=== PATIENT | male | born 1950 | race Caucasian/White ===

== ENCOUNTER → 2016-06-01 | Outpatient (CLI) | payer BC ==
[~2016-06-01] MED LIST: ASPI-999 PO; CELE200C PO; CETI10TA20 PO; GADOBUTROL 10 MMOL/10 ML (GADAVIST) VIAL IV ONE; LEVO5TAB19 PO; MULT1TAB69 PO; NF-DICLOTA PO; OLME20TA22 PO; OMEG1CAP PO; OXYC-197 PO; ROSU20TA PO; SERT50TA2 PO; ZOLP10TA PO
--- NOTE | 2016-06-01 13:17 | Diagnostic Imaging Report ---
EXAMINATION: PET-CT TECHNIQUE: Serum glucose level at the time of the study is: 102 mg/dL. 14.3 mCi of FDG was administered intravenously followed by obtaining PET images with corresponding noncontrast CT scan images. The CT scan was performed for anatomic correlation and attenuation correction and was not performed according to the diagnostic protocol of the areas covered. The scan was performed from the head to mid thighs. INDICATION: Lung cancer. COMPARISON: 01/20/2016. FINDINGS: There is interval significant improvement in the hypermetabolic mass within the right lower lobe with FDG activity now within the normal range with maximum SUV of 2.8. There is also resolution of the previously seen hypermetabolic activity within the right hilum. The associated CT scan demonstrates remaining nodule and adjacent cavity in the right lower lobe measuring 2.5 x 2 cm significantly smaller compared to the previous study. No other significant nodule or mass is seen in the lungs. In the abdomen and pelvis, there is physiologic uptake in the bowel loops and excretion in the renal collecting system and within the urinary bladder with no suspicious hypermetabolic mass. The osseous structures demonstrate no hypermetabolic mass. The neck demonstrates mild areas of likely physiologic activity in the oral cavity and the oropharynx in a symmetric fashion with no suspicious hypermetabolic mass. IMPRESSION: Diminished hypermetabolic activity in the right lung base mass and right hilum seen on 01/20/2016 exam. There is residual soft tissue nodule in the right lung base however measuring 2.5 x 2 cm in maximum axial dimension. Dictated by: Dictated on workstation # [id number]
--- NOTE | 2016-07-02 10:15 | RADIOLOGY REPORT ---
NAME: SRI MINOR [facility] REC#: [id number] PT STATUS: : 1950 PHYSICIAN: JOIE PÉREZ ADMIT DATE: 05/17/16/RAD CORRECTED Signed Date of Exam:06/01/16 MRI BRAIN W/WO CONTRAST PROCEDURE: MR imaging of the brain with and without contrast. TECHNIQUE: Multiplanar, multisequence MR imaging of the brain was performed with and without contrast. INDICATION: History of lung cancer. COMPARISON: Comparison exam on 02/13/2016. 8 mL of Gadavist is administered intravenously. FINDINGS: There is no diffusion restriction to suggest an acute infarct or other diffusion abnormality. There is extensive periventricular and deep white matter T2 hyperintense lesions compatible with chronic microvascular ischemic changes. There is no enhancing mass. The previously seen enhancing lesion in the posterior left parietal region is not visualized on this exam. The linear appearance on the sagittal images on the previous study suggested possibility of a DVA. A developmental venous anomaly however should persist and the resolution is suggestive of other etiology. There is no hydrocephalus. No extra-axial fluid collection seen. Central vascular flow-voids appear grossly unremarkable. The inner ear structures and internal auditory canals appear symmetric. The orbits appear symmetric. The visualized portions of the paranasal sinuses demonstrate no significant abnormality. IMPRESSION: No acute infarct or enhancing mass. The previously seen enhancing lesion in the posterior parietal lobe has resolved. This could be related to treatment of an early metastatic lesion or a transient focal encephalitis. Correlate clinically and with followup exams. Dictated by: Dictated on workstation # [id number] Dict: 06/01/16 1348 Trans: 06/01/16 1706 [id number] Interpreted by: KESHA HARRIS MD Electronically signed by: KESHA HARRIS MD 06/01/16 1709 [facility]
== END ==
LOC: RAD 07:54
PROVIDERS: ATTEND Internal Medicine Hematology & Oncology
DX: Z01.89 Encounter for other specified special examinations (principal); C34.31 Malignant neoplasm of lower lobe, right bronchus or lung; R51 Headache
CPT/HCPCS: 70553

== ENCOUNTER → 2016-06-03 | Outpatient (RCR) | payer BC ==
[2016-03-05 14:37] LABS: BASOPHILS % (AUTO) 0 % (0-10); EOSINOPHILS # (AUTO) 0.2 10^3/uL (0.0-0.3); EOSINOPHILS % (AUTO) 2 % (0-10); LYMPHOCYTES # (AUTO) 1.5 X 10^3 (1.0-4.0); LYMPHOCYTES % (AUTO) 19 % (12-44); MEAN CORPUSCULAR HEMOGLOBIN 30 PG (25-34); MEAN CORPUSCULAR HGB CONC 34 G/DL (32-36); MEAN CORPUSCULAR VOLUME 90 FL (80-99); MEAN PLATELET VOLUME 9.7 FL (7.4-10.4); MONOCYTES # (AUTO) 0.8 X 10^3 (0.0-1.0); MONOCYTES % (AUTO) 10 % (0-12); NEUTROPHILS # (AUTO) 5.2 X 10^3 (1.8-7.8); NEUTROPHILS % (AUTO) 68 % (42-75); PLATELET COUNT 272 10^3/uL (130-400); RED BLOOD COUNT 4.62 10^6/uL (4.35-5.85); RED CELL DISTRIBUTION WIDTH 12.7 % (10.0-14.5); WHITE BLOOD COUNT 7.6 10^3/uL (4.3-11.0)
[2016-03-05 14:59] LABS: ALANINE AMINOTRANSFERASE 25 U/L (0-55); ALBUMIN 4.6 G/DL (3.2-4.5); ANION GAP 9 MMOL/L (5-14); ASPARTATE AMINO TRANSFERASE 24 U/L (5-34); BILIRUBIN,TOTAL 0.5 MG/DL (0.1-1.0); BLOOD UREA NITROGEN 15 MG/DL (7-18); BUN/CREATININE RATIO 15; CALCIUM 9.6 MG/DL (8.5-10.1); CARBON DIOXIDE 24 MMOL/L (21-32); CHLORIDE 107 MMOL/L (98-107); CREATININE SERUM 0.98 MG/DL (0.60-1.30); GFR ESTIMATED > 60; GLUCOSE 95 MG/DL (70-105); MAGNESIUM 2.2 MG/DL (1.8-2.4); POTASSIUM 4.3 MMOL/L (3.6-5.0); SODIUM 140 MMOL/L (135-145); TOTAL PROTEIN 7.1 G/DL (6.4-8.2)
[2016-03-18 13:48] LABS: BASOPHILS % (AUTO) 1 % (0-10); EOSINOPHILS # (AUTO) 0.1 10^3/uL (0.0-0.3); EOSINOPHILS % (AUTO) 4 % (0-10); LYMPHOCYTES # (AUTO) 0.6 X 10^3 (1.0-4.0); LYMPHOCYTES % (AUTO) 17 % (12-44); MEAN CORPUSCULAR HEMOGLOBIN 30 PG (25-34); MEAN CORPUSCULAR HGB CONC 33 G/DL (32-36); MEAN CORPUSCULAR VOLUME 91 FL (80-99); MEAN PLATELET VOLUME 9.8 FL (7.4-10.4); MONOCYTES # (AUTO) 0.1 X 10^3 (0.0-1.0); MONOCYTES % (AUTO) 4 % (0-12); NEUTROPHILS # (AUTO) 2.7 X 10^3 (1.8-7.8); NEUTROPHILS % (AUTO) 75 % (42-75); PLATELET COUNT 264 10^3/uL (130-400); RED BLOOD COUNT 4.34 10^6/uL (4.35-5.85); RED CELL DISTRIBUTION WIDTH 12.8 % (10.0-14.5); WHITE BLOOD COUNT 3.6 10^3/uL (4.3-11.0)
[2016-03-18 14:38] LABS: ANION GAP 6 MMOL/L (5-14); BLOOD UREA NITROGEN 18 MG/DL (7-18); BUN/CREATININE RATIO 21; CALCIUM 8.7 MG/DL (8.5-10.1); CARBON DIOXIDE 25 MMOL/L (21-32); CHLORIDE 106 MMOL/L (98-107); CREATININE SERUM 0.86 MG/DL (0.60-1.30); GFR ESTIMATED > 60; GLUCOSE 95 MG/DL (70-105); POTASSIUM 4.7 MMOL/L (3.6-5.0); SODIUM 137 MMOL/L (135-145)
[2016-03-25 13:05] LABS: BASOPHILS # (AUTO) 0.1 10^3/uL (0.0-0.1); BASOPHILS % (AUTO) 2 % (0-10); EOSINOPHILS # (AUTO) 0.3 10^3/uL (0.0-0.3); EOSINOPHILS % (AUTO) 9 % (0-10); LYMPHOCYTES # (AUTO) 1.2 X 10^3 (1.0-4.0); LYMPHOCYTES % (AUTO) 42 % (12-44); MEAN CORPUSCULAR HEMOGLOBIN 31 PG (25-34); MEAN CORPUSCULAR HGB CONC 34 G/DL (32-36); MEAN CORPUSCULAR VOLUME 90 FL (80-99); MEAN PLATELET VOLUME 9.4 FL (7.4-10.4); MONOCYTES # (AUTO) 0.4 X 10^3 (0.0-1.0); MONOCYTES % (AUTO) 15 % (0-12); NEUTROPHILS # (AUTO) 0.9 X 10^3 (1.8-7.8); NEUTROPHILS % (AUTO) 32 % (42-75); PLATELET COUNT 354 10^3/uL (130-400); RED BLOOD COUNT 4.82 10^6/uL (4.35-5.85); RED CELL DISTRIBUTION WIDTH 12.5 % (10.0-14.5); WHITE BLOOD COUNT 2.9 10^3/uL (4.3-11.0)
[2016-03-25 13:30] LABS: ANION GAP 9 MMOL/L (5-14); BLOOD UREA NITROGEN 14 MG/DL (7-18); BUN/CREATININE RATIO 15; CALCIUM 9.3 MG/DL (8.5-10.1); CARBON DIOXIDE 25 MMOL/L (21-32); CHLORIDE 105 MMOL/L (98-107); CREATININE SERUM 0.94 MG/DL (0.60-1.30); GFR ESTIMATED > 60; GLUCOSE 113 MG/DL (70-105); POTASSIUM 4.3 MMOL/L (3.6-5.0); SODIUM 139 MMOL/L (135-145)
[2016-03-25 13:34] LABS: BAND NEUTROPHILS 0 %; BASOPHILS % (MANUAL) 2 %; EOSINOPHILS % (MANUAL) 5 %; LYMPHOCYTES % (MANUAL) 30 %; NEUTROPHILS % (MANUAL) 32 %; REACTIVE LYMPHOCYTES 16 %
[2016-04-01 10:12] LABS: BASOPHILS % (AUTO) 0 % (0-10); EOSINOPHILS % (AUTO) 0 % (0-10); LYMPHOCYTES # (AUTO) 0.7 X 10^3 (1.0-4.0); LYMPHOCYTES % (AUTO) 7 % (12-44); MEAN CORPUSCULAR HEMOGLOBIN 30 PG (25-34); MEAN CORPUSCULAR HGB CONC 34 G/DL (32-36); MEAN CORPUSCULAR VOLUME 89 FL (80-99); MEAN PLATELET VOLUME 9.6 FL (7.4-10.4); MONOCYTES # (AUTO) 0.1 X 10^3 (0.0-1.0); MONOCYTES % (AUTO) 1 % (0-12); NEUTROPHILS # (AUTO) 9.2 X 10^3 (1.8-7.8); NEUTROPHILS % (AUTO) 92 % (42-75); PLATELET COUNT 345 10^3/uL (130-400); RED BLOOD COUNT 4.69 10^6/uL (4.35-5.85); RED CELL DISTRIBUTION WIDTH 12.7 % (10.0-14.5); WHITE BLOOD COUNT 9.9 10^3/uL (4.3-11.0)
[2016-04-01 10:38] LABS: ALANINE AMINOTRANSFERASE 28 U/L (0-55); ALBUMIN 4.3 G/DL (3.2-4.5); ANION GAP 13 MMOL/L (5-14); ASPARTATE AMINO TRANSFERASE 22 U/L (5-34); BILIRUBIN,TOTAL 0.3 MG/DL (0.1-1.0); BLOOD UREA NITROGEN 24 MG/DL (7-18); BUN/CREATININE RATIO 24; CALCIUM 9.3 MG/DL (8.5-10.1); CARBON DIOXIDE 18 MMOL/L (21-32); CHLORIDE 104 MMOL/L (98-107); CREATININE SERUM 0.98 MG/DL (0.60-1.30); GFR ESTIMATED > 60; GLUCOSE 185 MG/DL (70-105); POTASSIUM 4.2 MMOL/L (3.6-5.0); SODIUM 135 MMOL/L (135-145); TOTAL PROTEIN 6.8 G/DL (6.4-8.2)
--- NOTE | 2016-04-01 15:05 | Diagnostic Imaging Report ---
PA and lateral views of the chest. INDICATION: Lung cancer. COMPARISON: 01/31/2016. FINDINGS: The lungs demonstrate no focal infiltrate. There is eventration of the right hemidiaphragm. The heart size is normal. No effusion or pneumothorax. Mediastinum and zunilda appear unremarkable. Upper lumbar spine posterior fusion hardware and cervical spine anterior fusion hardware is noted. IMPRESSION: No acute process. Dictated by: Dictated on workstation # [id number]
[2016-04-08 09:47] LABS: BASOPHILS % (AUTO) 0 % (0-10); EOSINOPHILS # (AUTO) 0.3 10^3/uL (0.0-0.3); EOSINOPHILS % (AUTO) 5 % (0-10); LYMPHOCYTES # (AUTO) 0.5 X 10^3 (1.0-4.0); LYMPHOCYTES % (AUTO) 9 % (12-44); MEAN CORPUSCULAR HEMOGLOBIN 30 PG (25-34); MEAN CORPUSCULAR HGB CONC 33 G/DL (32-36); MEAN CORPUSCULAR VOLUME 91 FL (80-99); MEAN PLATELET VOLUME 9.7 FL (7.4-10.4); MONOCYTES # (AUTO) 0.2 X 10^3 (0.0-1.0); MONOCYTES % (AUTO) 3 % (0-12); NEUTROPHILS # (AUTO) 4.3 X 10^3 (1.8-7.8); NEUTROPHILS % (AUTO) 82 % (42-75); PLATELET COUNT 214 10^3/uL (130-400); RED BLOOD COUNT 4.31 10^6/uL (4.35-5.85); RED CELL DISTRIBUTION WIDTH 12.9 % (10.0-14.5); WHITE BLOOD COUNT 5.3 10^3/uL (4.3-11.0)
[2016-04-08 10:21] LABS: ANION GAP 8 MMOL/L (5-14); BLOOD UREA NITROGEN 23 MG/DL (7-18); BUN/CREATININE RATIO 30; CALCIUM 8.6 MG/DL (8.5-10.1); CARBON DIOXIDE 24 MMOL/L (21-32); CHLORIDE 107 MMOL/L (98-107); CREATININE SERUM 0.77 MG/DL (0.60-1.30); GFR ESTIMATED > 60; GLUCOSE 104 MG/DL (70-105); POTASSIUM 4.4 MMOL/L (3.6-5.0); SODIUM 139 MMOL/L (135-145)
[2016-04-15 11:53] LABS: BASOPHILS # (AUTO) 0.1 10^3/uL (0.0-0.1); BASOPHILS % (AUTO) 2 % (0-10); EOSINOPHILS # (AUTO) 0.3 10^3/uL (0.0-0.3); EOSINOPHILS % (AUTO) 9 % (0-10); LYMPHOCYTES % (AUTO) 33 % (12-44); MEAN CORPUSCULAR HEMOGLOBIN 31 PG (25-34); MEAN CORPUSCULAR HGB CONC 34 G/DL (32-36); MEAN CORPUSCULAR VOLUME 90 FL (80-99); MEAN PLATELET VOLUME 9.1 FL (7.4-10.4); MONOCYTES # (AUTO) 0.7 X 10^3 (0.0-1.0); MONOCYTES % (AUTO) 22 % (0-12); NEUTROPHILS % (AUTO) 33 % (42-75); PLATELET COUNT 306 10^3/uL (130-400); RED BLOOD COUNT 4.53 10^6/uL (4.35-5.85); RED CELL DISTRIBUTION WIDTH 13.1 % (10.0-14.5)
[2016-04-15 13:13] LABS: ANION GAP 9 MMOL/L (5-14); BLOOD UREA NITROGEN 21 MG/DL (7-18); BUN/CREATININE RATIO 24; CALCIUM 9.4 MG/DL (8.5-10.1); CARBON DIOXIDE 24 MMOL/L (21-32); CHLORIDE 106 MMOL/L (98-107); CREATININE SERUM 0.86 MG/DL (0.60-1.30); GFR ESTIMATED > 60; GLUCOSE 117 MG/DL (70-105); POTASSIUM 4.4 MMOL/L (3.6-5.0); SODIUM 139 MMOL/L (135-145)
[2016-04-22 11:00] LABS: BASOPHILS % (AUTO) 0 % (0-10); EOSINOPHILS % (AUTO) 0 % (0-10); LYMPHOCYTES # (AUTO) 0.6 X 10^3 (1.0-4.0); LYMPHOCYTES % (AUTO) 6 % (12-44); MEAN CORPUSCULAR HEMOGLOBIN 30 PG (25-34); MEAN CORPUSCULAR HGB CONC 34 G/DL (32-36); MEAN CORPUSCULAR VOLUME 88 FL (80-99); MEAN PLATELET VOLUME 9.4 FL (7.4-10.4); MONOCYTES # (AUTO) 0.1 X 10^3 (0.0-1.0); MONOCYTES % (AUTO) 1 % (0-12); NEUTROPHILS # (AUTO) 9.6 X 10^3 (1.8-7.8); NEUTROPHILS % (AUTO) 92 % (42-75); PLATELET COUNT 356 10^3/uL (130-400); RED BLOOD COUNT 4.68 10^6/uL (4.35-5.85); RED CELL DISTRIBUTION WIDTH 12.9 % (10.0-14.5); WHITE BLOOD COUNT 10.3 10^3/uL (4.3-11.0)
[2016-04-22 11:33] LABS: ALANINE AMINOTRANSFERASE 26 U/L (0-55); ALBUMIN 4.4 G/DL (3.2-4.5); ANION GAP 12 MMOL/L (5-14); ASPARTATE AMINO TRANSFERASE 19 U/L (5-34); BILIRUBIN,TOTAL 0.3 MG/DL (0.1-1.0); BLOOD UREA NITROGEN 22 MG/DL (7-18); BUN/CREATININE RATIO 22; CALCIUM 9.5 MG/DL (8.5-10.1); CARBON DIOXIDE 19 MMOL/L (21-32); CHLORIDE 108 MMOL/L (98-107); CREATININE SERUM 0.98 MG/DL (0.60-1.30); GFR ESTIMATED > 60; GLUCOSE 171 MG/DL (70-105); MAGNESIUM 2.1 MG/DL (1.8-2.4); POTASSIUM 4.1 MMOL/L (3.6-5.0); SODIUM 139 MMOL/L (135-145)
[2016-04-29 09:42] LABS: BASOPHILS % (AUTO) 1 % (0-10); EOSINOPHILS # (AUTO) 0.2 10^3/uL (0.0-0.3); EOSINOPHILS % (AUTO) 6 % (0-10); LYMPHOCYTES # (AUTO) 0.4 X 10^3 (1.0-4.0); LYMPHOCYTES % (AUTO) 11 % (12-44); MEAN CORPUSCULAR HEMOGLOBIN 30 PG (25-34); MEAN CORPUSCULAR HGB CONC 33 G/DL (32-36); MEAN CORPUSCULAR VOLUME 91 FL (80-99); MEAN PLATELET VOLUME 9.6 FL (7.4-10.4); MONOCYTES # (AUTO) 0.2 X 10^3 (0.0-1.0); MONOCYTES % (AUTO) 4 % (0-12); NEUTROPHILS # (AUTO) 3.2 X 10^3 (1.8-7.8); NEUTROPHILS % (AUTO) 79 % (42-75); PLATELET COUNT 192 10^3/uL (130-400); RED BLOOD COUNT 4.32 10^6/uL (4.35-5.85); WHITE BLOOD COUNT 4.1 10^3/uL (4.3-11.0)
[2016-04-29 10:54] LABS: ANION GAP 7 MMOL/L (5-14); BLOOD UREA NITROGEN 21 MG/DL (7-18); BUN/CREATININE RATIO 24; CARBON DIOXIDE 24 MMOL/L (21-32); CHLORIDE 106 MMOL/L (98-107); CREATININE SERUM 0.86 MG/DL (0.60-1.30); GFR ESTIMATED > 60; GLUCOSE 97 MG/DL (70-105); POTASSIUM 4.4 MMOL/L (3.6-5.0); SODIUM 137 MMOL/L (135-145)
[2016-05-06 14:01] LABS: BASOPHILS % (AUTO) 1 % (0-10); EOSINOPHILS # (AUTO) 0.2 10^3/uL (0.0-0.3); EOSINOPHILS % (AUTO) 5 % (0-10); LYMPHOCYTES # (AUTO) 1.2 X 10^3 (1.0-4.0); LYMPHOCYTES % (AUTO) 41 % (12-44); MEAN CORPUSCULAR HEMOGLOBIN 31 PG (25-34); MEAN CORPUSCULAR HGB CONC 34 G/DL (32-36); MEAN CORPUSCULAR VOLUME 90 FL (80-99); MEAN PLATELET VOLUME 9.6 FL (7.4-10.4); MONOCYTES # (AUTO) 0.6 X 10^3 (0.0-1.0); MONOCYTES % (AUTO) 21 % (0-12); NEUTROPHILS # (AUTO) 0.9 X 10^3 (1.8-7.8); NEUTROPHILS % (AUTO) 32 % (42-75); PLATELET COUNT 247 10^3/uL (130-400); RED BLOOD COUNT 4.36 10^6/uL (4.35-5.85); RED CELL DISTRIBUTION WIDTH 12.9 % (10.0-14.5); WHITE BLOOD COUNT 2.9 10^3/uL (4.3-11.0)
[2016-05-06 14:19] LABS: ANION GAP 8 MMOL/L (5-14); BLOOD UREA NITROGEN 14 MG/DL (7-18); BUN/CREATININE RATIO 16; CALCIUM 9.2 MG/DL (8.5-10.1); CARBON DIOXIDE 23 MMOL/L (21-32); CHLORIDE 108 MMOL/L (98-107); CREATININE SERUM 0.89 MG/DL (0.60-1.30); GFR ESTIMATED > 60; GLUCOSE 89 MG/DL (70-105); POTASSIUM 4.2 MMOL/L (3.6-5.0); SODIUM 139 MMOL/L (135-145)
[2016-05-13 09:33] LABS: BASOPHILS % (AUTO) 0 % (0-10); EOSINOPHILS % (AUTO) 0 % (0-10); LYMPHOCYTES # (AUTO) 0.6 X 10^3 (1.0-4.0); LYMPHOCYTES % (AUTO) 11 % (12-44); MEAN CORPUSCULAR HEMOGLOBIN 30 PG (25-34); MEAN CORPUSCULAR HGB CONC 34 G/DL (32-36); MEAN CORPUSCULAR VOLUME 89 FL (80-99); MEAN PLATELET VOLUME 8.8 FL (7.4-10.4); MONOCYTES % (AUTO) 1 % (0-12); NEUTROPHILS # (AUTO) 4.8 X 10^3 (1.8-7.8); NEUTROPHILS % (AUTO) 89 % (42-75); PLATELET COUNT 345 10^3/uL (130-400); RED BLOOD COUNT 4.26 10^6/uL (4.35-5.85); RED CELL DISTRIBUTION WIDTH 13.1 % (10.0-14.5); WHITE BLOOD COUNT 5.5 10^3/uL (4.3-11.0)
[2016-05-13 09:55] LABS: ALANINE AMINOTRANSFERASE 22 U/L (0-55); ALBUMIN 4.3 G/DL (3.2-4.5); ANION GAP 8 MMOL/L (5-14); ASPARTATE AMINO TRANSFERASE 18 U/L (5-34); BILIRUBIN,TOTAL 0.3 MG/DL (0.1-1.0); BLOOD UREA NITROGEN 25 MG/DL (7-18); BUN/CREATININE RATIO 27; CALCIUM 8.9 MG/DL (8.5-10.1); CARBON DIOXIDE 21 MMOL/L (21-32); CHLORIDE 107 MMOL/L (98-107); CREATININE SERUM 0.93 MG/DL (0.60-1.30); GFR ESTIMATED > 60; GLUCOSE 195 MG/DL (70-105); MAGNESIUM 2.2 MG/DL (1.8-2.4); POTASSIUM 4.4 MMOL/L (3.6-5.0); SODIUM 136 MMOL/L (135-145); TOTAL PROTEIN 6.7 G/DL (6.4-8.2)
[2016-05-20 12:01] LABS: BASOPHILS % (AUTO) 1 % (0-10); EOSINOPHILS # (AUTO) 0.1 10^3/uL (0.0-0.3); EOSINOPHILS % (AUTO) 2 % (0-10); LYMPHOCYTES # (AUTO) 0.8 X 10^3 (1.0-4.0); LYMPHOCYTES % (AUTO) 20 % (12-44); MEAN CORPUSCULAR HEMOGLOBIN 30 PG (25-34); MEAN CORPUSCULAR HGB CONC 33 G/DL (32-36); MEAN CORPUSCULAR VOLUME 92 FL (80-99); MEAN PLATELET VOLUME 9.4 FL (7.4-10.4); MONOCYTES # (AUTO) 0.2 X 10^3 (0.0-1.0); MONOCYTES % (AUTO) 5 % (0-12); NEUTROPHILS # (AUTO) 2.9 X 10^3 (1.8-7.8); NEUTROPHILS % (AUTO) 72 % (42-75); PLATELET COUNT 184 10^3/uL (130-400); RED BLOOD COUNT 3.96 10^6/uL (4.35-5.85); RED CELL DISTRIBUTION WIDTH 13.3 % (10.0-14.5)
[2016-05-20 12:47] LABS: ANION GAP 8 MMOL/L (5-14); BLOOD UREA NITROGEN 25 MG/DL (7-18); BUN/CREATININE RATIO 29; CALCIUM 8.4 MG/DL (8.5-10.1); CARBON DIOXIDE 23 MMOL/L (21-32); CHLORIDE 108 MMOL/L (98-107); CREATININE SERUM 0.86 MG/DL (0.60-1.30); GFR ESTIMATED > 60; GLUCOSE 97 MG/DL (70-105); POTASSIUM 5.1 MMOL/L (3.6-5.0); SODIUM 139 MMOL/L (135-145)
[2016-05-27 13:11] LABS: BASOPHILS % (AUTO) 1 % (0-10); EOSINOPHILS # (AUTO) 0.1 10^3/uL (0.0-0.3); EOSINOPHILS % (AUTO) 3 % (0-10); LYMPHOCYTES # (AUTO) 0.7 X 10^3 (1.0-4.0); LYMPHOCYTES % (AUTO) 25 % (12-44); MEAN CORPUSCULAR HEMOGLOBIN 30 PG (25-34); MEAN CORPUSCULAR HGB CONC 34 G/DL (32-36); MEAN CORPUSCULAR VOLUME 91 FL (80-99); MEAN PLATELET VOLUME 9.2 FL (7.4-10.4); MONOCYTES # (AUTO) 1.1 X 10^3 (0.0-1.0); MONOCYTES % (AUTO) 38 % (0-12); NEUTROPHILS % (AUTO) 34 % (42-75); PLATELET COUNT 263 10^3/uL (130-400); RED BLOOD COUNT 3.95 10^6/uL (4.35-5.85); RED CELL DISTRIBUTION WIDTH 13.6 % (10.0-14.5); WHITE BLOOD COUNT 2.8 10^3/uL (4.3-11.0)
[2016-05-27 13:52] LABS: ANION GAP 8 MMOL/L (5-14); BLOOD UREA NITROGEN 23 MG/DL (7-18); BUN/CREATININE RATIO 23; CALCIUM 8.8 MG/DL (8.5-10.1); CARBON DIOXIDE 23 MMOL/L (21-32); CHLORIDE 108 MMOL/L (98-107); CREATININE SERUM 0.98 MG/DL (0.60-1.30); GFR ESTIMATED > 60; GLUCOSE 99 MG/DL (70-105); POTASSIUM 4.8 MMOL/L (3.6-5.0); SODIUM 139 MMOL/L (135-145)
[~2016-06-03] VITALS: Ht 167.6 cm; Wt 93.4 kg
[~2016-06-03] MED LIST changes: +CARBOPLATIN 400 MG in D5W 50 ML IV(CANCER CTR) 50 ML IV SCH; +CARBOPLATIN IV SCH; +D5W IV SCH; +FAMOTIDINE 20MG/2ML IV (CANCER CTR) IV SCH; +FOSAPREPITANT 150 MG/NS 150 MG IVPB (CANCER CTR) IV PRN; -GADOBUTROL 10 MMOL/10 ML (GADAVIST) VIAL IV ONE; +NORMAL SALINE IV SCH; +NS IV 1000 ML (CANCER CTR) IV SCH; +NS IV 500 ML (CANCER CENTER) 500 ML ONE; +NS IV 500 ML (CANCER CENTER) IV SCH; +PACLITAXEL IV SCH; +PACLITAXEL SEMI SYNTHETIC IV SCH; +PALONOSETRON 0.25 MG, DEXAMETHASONE 10 MG/NS 50 ML IVPB IV PRN; +[UNRECOGNIZED DRUG - OTHER] IV SCH; +diphenhydrAMINE 25 MG TAB (BENADRYL) CANCER CENTER PO ONE; +diphenhydrAMINE 50 MG/ML INJ (CANCER CENTER) IV PRN
[2016-06-03 10:34] LABS: BASOPHILS # (AUTO) 0.1 10^3/uL (0.0-0.1); BASOPHILS % (AUTO) 1 % (0-10); EOSINOPHILS # (AUTO) 0.2 10^3/uL (0.0-0.3); EOSINOPHILS % (AUTO) 2 % (0-10); LYMPHOCYTES # (AUTO) 1.3 X 10^3 (1.0-4.0); LYMPHOCYTES % (AUTO) 19 % (12-44); MEAN CORPUSCULAR HEMOGLOBIN 30 PG (25-34); MEAN CORPUSCULAR HGB CONC 33 G/DL (32-36); MEAN CORPUSCULAR VOLUME 91 FL (80-99); MEAN PLATELET VOLUME 8.6 FL (7.4-10.4); MONOCYTES # (AUTO) 1.1 X 10^3 (0.0-1.0); MONOCYTES % (AUTO) 16 % (0-12); NEUTROPHILS # (AUTO) 4.2 X 10^3 (1.8-7.8); NEUTROPHILS % (AUTO) 62 % (42-75); PLATELET COUNT 335 10^3/uL (130-400); RED BLOOD COUNT 4.14 10^6/uL (4.35-5.85); RED CELL DISTRIBUTION WIDTH 13.7 % (10.0-14.5); WHITE BLOOD COUNT 6.8 10^3/uL (4.3-11.0)
[2016-06-03 12:08] LABS: ALANINE AMINOTRANSFERASE 26 U/L (0-55); ALBUMIN 3.9 G/DL (3.2-4.5); ANION GAP 10 MMOL/L (5-14); ASPARTATE AMINO TRANSFERASE 21 U/L (5-34); BILIRUBIN,TOTAL 0.2 MG/DL (0.1-1.0); BLOOD UREA NITROGEN 25 MG/DL (7-18); BUN/CREATININE RATIO 25; CALCIUM 8.9 MG/DL (8.5-10.1); CARBON DIOXIDE 22 MMOL/L (21-32); CHLORIDE 107 MMOL/L (98-107); CREATININE SERUM 1.01 MG/DL (0.60-1.30); GFR ESTIMATED > 60; GLUCOSE 99 MG/DL (70-105); MAGNESIUM 2.3 MG/DL (1.8-2.4); SODIUM 139 MMOL/L (135-145); TOTAL PROTEIN 6.3 G/DL (6.4-8.2)
== END | disposition home or self-care (01) ==
LOC: ONC 03-05 12:33
PROVIDERS: ATTEND Internal Medicine Hematology & Oncology
DX: Z51.11 Encounter for antineoplastic chemotherapy (principal); C34.31 Malignant neoplasm of lower lobe, right bronchus or lung; C77.1 Secondary and unspecified malignant neoplasm of intrathoracic lymph nodes; I10 Essential (primary) hypertension; E78.00 Pure hypercholesterolemia, unspecified; M15.9 Polyosteoarthritis, unspecified; Z87.891 Personal history of nicotine dependence; Z79.899 Other long term (current) drug therapy
CPT/HCPCS: 36415; 71020; 80048; 80053; 83735; 85007; 85025; 85027; 96367; 96375; 96411; 96413; 96415; 96417; 99213; 99214

== ENCOUNTER → 2016-06-09 | Outpatient (CLI) | payer BC ==
[~2016-06-09] MED LIST changes: -CARBOPLATIN 400 MG in D5W 50 ML IV(CANCER CTR) 50 ML IV SCH; -CARBOPLATIN IV SCH; -D5W IV SCH; -FAMOTIDINE 20MG/2ML IV (CANCER CTR) IV SCH; -FOSAPREPITANT 150 MG/NS 150 MG IVPB (CANCER CTR) IV PRN; -NORMAL SALINE IV SCH; -NS IV 1000 ML (CANCER CTR) IV SCH; -NS IV 500 ML (CANCER CENTER) 500 ML ONE; -NS IV 500 ML (CANCER CENTER) IV SCH; -PACLITAXEL IV SCH; -PACLITAXEL SEMI SYNTHETIC IV SCH; -PALONOSETRON 0.25 MG, DEXAMETHASONE 10 MG/NS 50 ML IVPB IV PRN; -[UNRECOGNIZED DRUG - OTHER] IV SCH; -diphenhydrAMINE 25 MG TAB (BENADRYL) CANCER CENTER PO ONE; -diphenhydrAMINE 50 MG/ML INJ (CANCER CENTER) IV PRN
--- OUTSIDE RECORDS SUMMARY | 2016-06-09 09:36 | XMS REPORT | Continuity of Care Document ---
Author Author [facility] Organization [facility] Address Unknown Phone Unavailable Care Team Providers Care Angledozer Operator Name Role Phone Alan Garcia PCP [phone] Source Comments Some departments are not documenting in the electronic medical record. If you do not see the information that you expected, contact Release of Information in the Health Information Management department at [phone] for further assistance in locating additional records.[facility] Active Allergies and Adverse Reactions No Known Allergies Current Medications Prescription Sig. Disp. Refills Start End Date Status Date OMEGA-3 ACID ETHYL ESTERS Take 2,000 mg by mouth at Active (LOVAZA PO) bedtime daily. sertraline (ZOLOFT) 100 Take 100 mg by mouth Active mg tablet daily. Levocetirizine 5 mg tab Take 5 mg by mouth daily. Active olmesartan(+) (BENICAR) Take 20 mg by mouth at Active 20 mg tablet bedtime daily. MULTIVITAMINS WITH Take 1 Tab by mouth Active FLUORIDE (MULTI-VITAMIN daily. PO) rosuvastatin (CRESTOR) 20 Take 20 mg by mouth at Active mg tablet bedtime daily. zolpidem (AMBIEN) 10 mg Take 10 mg by mouth at Active tablet bedtime as needed for Sleep. ASPIRIN PO Take 81 mg by mouth Active daily. cetirizine (ZYRTEC) 10 mg Take 5 mg by mouth every Active tablet morning. diclofenac sodium Take 100 mg by mouth Active (VOLTAREN-XR) 100 mg xr daily. Take with food. tablet acetaminophen (TYLENOL) Take 1-2 Tabs by mouth 0 16/ Active 500 mg tablet every 6 hours as needed 16 for Pain. Max of 4,000 mg of acetaminophen in 24 hours. buPROPion SR(+) Take 150 mg by mouth Active (WELLBUTRIN-SR) 150 mg twice daily. tablet omeprazole DR(+) Take 20 mg by mouth daily Active (PRILOSEC) 20 mg capsule before breakfast. HYDROcodone bitartrate 20 Take by mouth Active mg cp12 other medication Inject 1 Dose under the 06/09/19 Discontin skin every 7 days. 17 ued Medication Name & Strength:allergy shots Dose(how many): 1 Frequency(how often): once a week gabapentin (NEURONTIN) Take 300 mg by mouth 06/09/19 Discontin 300 mg capsule three times daily. 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 Siobhan Enriquez MD Lung cancer (HCC) Encounter 06/09/2016 Prep for Case Cardiothoracic Surgery Siobhan Enriquez MD 06/08/2016 Office Visit Cardiothoracic Surgery Siobhan Enriquez MD Primary malignant neoplasm of bronchus of right lower lobe (HCC) (Primary Dx); Chronic obstructive pulmonary disease, unspecified COPD type 06/03/2016 Ancillary Radiology Outpatient, Radiologist Diagnosis unknown Orders (Primary Dx) 06/01/2016 Hospital Radiology Encounter 06/01/2016 Hospital Radiology Encounter Social History Tobacco Use Types Packs/Day Years Used Date Former Smoker Cigarettes 2 40 Quit: 04/04/2005 Comments: currently using e cigarette Alcohol Use Drinks/Week oz/Week Comments Yes 0 Standard 0.0 2-3 per month; Pt reports former history of "Half drinks or a liter a day" for pain relief. equivalent Last Filed Vital Signs Vital Sign Reading Time Taken Blood Pressure 110/70 06/08/2016 11:21 AM [employer] Pulse 66 06/08/2016 11:21 AM [employer] Temperature 36.6 C (97.9 F) 06/08/2016 11:21 AM [employer] Respiratory Rate - - Height 1.676 m (5' 6") 06/08/2016 11:21 AM [employer] Weight 91.627 kg (202 lb) 06/08/2016 11:21 AM [employer] Body Mass Index 32.62 06/08/2016 11:21 AM [employer] Oxygen Saturation 95% 06/08/2016 11:21 AM [employer] Plan of Care Date Type Specialty Providers Description 07/07/2016 Appointment Cardiothoracic Surgery 07/08/2016 Surgery Siobhan Enriquez MD Video Assisted [address] Thoracoscopy, Right Lower [address] [place] [address] [phone] (Fax) Health Maintenance Due Date Last Done Comments Hepatitis C Screening 1950 Physical (Comprehensive) 09/22/1958 Exam Pertussis Vaccine 09/22/1962 Tetanus Vaccine 09/22/1968 Colorectal Cancer 09/22/2001 Screening Shingles Vaccine 2011 Influenza Vaccine 12/03/2016 Results from Last 3 Months NM PET/CT EXTERNAL IMAGING (06/01/2016 12:15 AM) Narrative This order has been auto finalized and does not contain a result. MRI HEAD EXTERNAL IMAGING (06/01/2016) Narrative This order has been auto finalized and does not contain a result.
== END ==
LOC: RT 09:32
PROVIDERS: ATTEND Student in an Organized Health Care Education/Training Program
DX: C34.31 Malignant neoplasm of lower lobe, right bronchus or lung (principal); J44.9 Chronic obstructive pulmonary disease, unspecified
CPT/HCPCS: 94060; 94726; 94729

== ENCOUNTER → 2016-07-02 | Outpatient (CLI) | payer BC ==
[~2016-07-02] MED LIST changes: +CATHETER FLUSH 10 ML SYR IV PRN
--- NOTE | 2016-07-02 18:52 | Diagnostic Imaging Report ---
INDICATION: Primary malignancy of the right lower lobe bronchus. EXAMINATION: 43 mCi Tc 99m DTPA used per nebulizer. 5.4 mCi Tc 99m MAA for perfusion. FINDINGS: Fractional lung perfusion was calculated. The right lung shows total perfusion of 45%. Left lung shows total perfusion of 54%. FRACTIONAL PERFUSION: Right: 13.6% in the upper zone, 24.5% in the mid zone and 7.3% in the lower zone. Left: 14.8% upper zone, 26.2% middle zone and 13.5% lower zone. Ventilation and perfusion study shows uniform distribution with no segmental defects to indicate pulmonary emboli. IMPRESSION: Normal ventilation/perfusion lung scan. Dictated by: Dictated on workstation # [id number]
== END ==
LOC: CARD 13:33
PROVIDERS: ATTEND Student in an Organized Health Care Education/Training Program
DX: C34.31 Malignant neoplasm of lower lobe, right bronchus or lung (principal)
CPT/HCPCS: 78582

== ENCOUNTER 2016-09-29 09:51 | Outpatient (RCR) | payer BC, MEDICARE ==
[2016-08-16 10:34] LABS: BASOPHILS % (AUTO) 0 % (0-10); EOSINOPHILS # (AUTO) 0.2 10^3/uL (0.0-0.3); EOSINOPHILS % (AUTO) 3 % (0-10); LYMPHOCYTES # (AUTO) 1.3 X 10^3 (1.0-4.0); LYMPHOCYTES % (AUTO) 18 % (12-44); MEAN CORPUSCULAR HEMOGLOBIN 31 PG (25-34); MEAN CORPUSCULAR HGB CONC 33 G/DL (32-36); MEAN CORPUSCULAR VOLUME 92 FL (80-99); MEAN PLATELET VOLUME 9.3 FL (7.4-10.4); MONOCYTES # (AUTO) 0.7 X 10^3 (0.0-1.0); MONOCYTES % (AUTO) 9 % (0-12); NEUTROPHILS # (AUTO) 5.1 X 10^3 (1.8-7.8); NEUTROPHILS % (AUTO) 70 % (42-75); PLATELET COUNT 298 10^3/uL (130-400); WHITE BLOOD COUNT 7.4 10^3/uL (4.3-11.0)
[2016-08-16 11:10] LABS: ALANINE AMINOTRANSFERASE 21 U/L (0-55); ALBUMIN 4.1 G/DL (3.2-4.5); ANION GAP 9 MMOL/L (5-14); ASPARTATE AMINO TRANSFERASE 20 U/L (5-34); BILIRUBIN,TOTAL 0.2 MG/DL (0.1-1.0); BLOOD UREA NITROGEN 21 MG/DL (7-18); BUN/CREATININE RATIO 21; CALCIUM 9.3 MG/DL (8.5-10.1); CARBON DIOXIDE 25 MMOL/L (21-32); CHLORIDE 106 MMOL/L (98-107); CREATININE SERUM 0.98 MG/DL (0.60-1.30); GFR ESTIMATED > 60; GLUCOSE 104 MG/DL (70-105); POTASSIUM 4.4 MMOL/L (3.6-5.0); SODIUM 140 MMOL/L (135-145); TOTAL PROTEIN 6.6 G/DL (6.4-8.2)
[2016-08-23 09:43] LABS: BASOPHILS % (AUTO) 0 % (0-10); EOSINOPHILS # (AUTO) 0.2 10^3/uL (0.0-0.3); EOSINOPHILS % (AUTO) 4 % (0-10); LYMPHOCYTES # (AUTO) 0.7 X 10^3 (1.0-4.0); LYMPHOCYTES % (AUTO) 14 % (12-44); MEAN CORPUSCULAR HEMOGLOBIN 30 PG (25-34); MEAN CORPUSCULAR HGB CONC 32 G/DL (32-36); MEAN CORPUSCULAR VOLUME 93 FL (80-99); MEAN PLATELET VOLUME 9.3 FL (7.4-10.4); MONOCYTES # (AUTO) 0.5 X 10^3 (0.0-1.0); MONOCYTES % (AUTO) 10 % (0-12); NEUTROPHILS # (AUTO) 3.7 X 10^3 (1.8-7.8); NEUTROPHILS % (AUTO) 72 % (42-75); PLATELET COUNT 249 10^3/uL (130-400); RED BLOOD COUNT 3.95 10^6/uL (4.35-5.85); RED CELL DISTRIBUTION WIDTH 12.8 % (10.0-14.5); WHITE BLOOD COUNT 5.1 10^3/uL (4.3-11.0)
[2016-08-23 10:06] LABS: ANION GAP 9 MMOL/L (5-14); BLOOD UREA NITROGEN 23 MG/DL (7-18); BUN/CREATININE RATIO 28; CALCIUM 9.1 MG/DL (8.5-10.1); CARBON DIOXIDE 24 MMOL/L (21-32); CHLORIDE 106 MMOL/L (98-107); CREATININE SERUM 0.82 MG/DL (0.60-1.30); GFR ESTIMATED > 60; GLUCOSE 96 MG/DL (70-105); POTASSIUM 4.4 MMOL/L (3.6-5.0); SODIUM 139 MMOL/L (135-145)
[2016-08-31 08:45] LABS: LYMPHOCYTES % (AUTO) 10 % (12-44); MEAN CORPUSCULAR HGB CONC 35 G/DL (32-36); MEAN CORPUSCULAR VOLUME 91 FL (80-99); MEAN PLATELET VOLUME 9.6 FL (7.4-10.4); NEUTROPHILS % (AUTO) 79 % (42-75); PLATELET COUNT 242 10^3/uL (130-400); RED BLOOD COUNT 3.81 10^6/uL (4.35-5.85); RED CELL DISTRIBUTION WIDTH 13.3 % (10.0-14.5); WHITE BLOOD COUNT 4.6 10^3/uL (4.3-11.0)
[2016-08-31 08:46] LABS: BASOPHILS % (AUTO) 0 % (0-10); EOSINOPHILS # (AUTO) 0.1 10^3/uL (0.0-0.3); EOSINOPHILS % (AUTO) 2 % (0-10); LYMPHOCYTES # (AUTO) 0.5 X 10^3 (1.0-4.0); MONOCYTES # (AUTO) 0.4 X 10^3 (0.0-1.0); MONOCYTES % (AUTO) 9 % (0-12); NEUTROPHILS # (AUTO) 3.6 X 10^3 (1.8-7.8)
[2016-08-31 08:47] LABS: MEAN CORPUSCULAR HEMOGLOBIN 31 PG (25-34)
[2016-08-31 09:10] LABS: ALANINE AMINOTRANSFERASE 19 U/L (0-55); ALBUMIN 4.1 G/DL (3.2-4.5); ANION GAP 10 MMOL/L (5-14); ASPARTATE AMINO TRANSFERASE 16 U/L (5-34); BILIRUBIN,TOTAL 0.3 MG/DL (0.1-1.0); BLOOD UREA NITROGEN 18 MG/DL (7-18); BUN/CREATININE RATIO 22; CALCIUM 9.4 MG/DL (8.5-10.1); CARBON DIOXIDE 22 MMOL/L (21-32); CHLORIDE 108 MMOL/L (98-107); CREATININE SERUM 0.82 MG/DL (0.60-1.30); GFR ESTIMATED > 60; GLUCOSE 100 MG/DL (70-105); MAGNESIUM 2.1 MG/DL (1.8-2.4); POTASSIUM 4.3 MMOL/L (3.6-5.0); SODIUM 140 MMOL/L (135-145); TOTAL PROTEIN 6.7 G/DL (6.4-8.2)
[2016-09-06 10:47] LABS: BASOPHILS % (AUTO) 0 % (0-10); EOSINOPHILS % (AUTO) 1 % (0-10); LYMPHOCYTES # (AUTO) 0.4 X 10^3 (1.0-4.0); LYMPHOCYTES % (AUTO) 10 % (12-44); MEAN CORPUSCULAR HEMOGLOBIN 31 PG (25-34); MEAN CORPUSCULAR HGB CONC 34 G/DL (32-36); MEAN CORPUSCULAR VOLUME 91 FL (80-99); MEAN PLATELET VOLUME 9.4 FL (7.4-10.4); MONOCYTES # (AUTO) 0.4 X 10^3 (0.0-1.0); MONOCYTES % (AUTO) 10 % (0-12); NEUTROPHILS # (AUTO) 2.9 X 10^3 (1.8-7.8); NEUTROPHILS % (AUTO) 79 % (42-75); PLATELET COUNT 253 10^3/uL (130-400); RED BLOOD COUNT 4.08 10^6/uL (4.35-5.85); RED CELL DISTRIBUTION WIDTH 13.4 % (10.0-14.5); WHITE BLOOD COUNT 3.7 10^3/uL (4.3-11.0)
[2016-09-06 11:12] LABS: ANION GAP 10 MMOL/L (5-14); BLOOD UREA NITROGEN 20 MG/DL (7-18); BUN/CREATININE RATIO 26; CALCIUM 9.3 MG/DL (8.5-10.1); CARBON DIOXIDE 23 MMOL/L (21-32); CHLORIDE 107 MMOL/L (98-107); CREATININE SERUM 0.78 MG/DL (0.60-1.30); GFR ESTIMATED > 60; GLUCOSE 108 MG/DL (70-105); POTASSIUM 4.4 MMOL/L (3.6-5.0); SODIUM 140 MMOL/L (135-145)
[2016-09-13 09:19] LABS: BASOPHILS % (AUTO) 0 % (0-10); EOSINOPHILS # (AUTO) 0.1 10^3/uL (0.0-0.3); EOSINOPHILS % (AUTO) 2 % (0-10); LYMPHOCYTES # (AUTO) 0.3 X 10^3 (1.0-4.0); LYMPHOCYTES % (AUTO) 6 % (12-44); MEAN CORPUSCULAR HEMOGLOBIN 31 PG (25-34); MEAN CORPUSCULAR HGB CONC 33 G/DL (32-36); MEAN CORPUSCULAR VOLUME 93 FL (80-99); MEAN PLATELET VOLUME 9.4 FL (7.4-10.4); MONOCYTES # (AUTO) 0.4 X 10^3 (0.0-1.0); MONOCYTES % (AUTO) 9 % (0-12); NEUTROPHILS # (AUTO) 3.9 X 10^3 (1.8-7.8); NEUTROPHILS % (AUTO) 83 % (42-75); PLATELET COUNT 219 10^3/uL (130-400); RED BLOOD COUNT 3.98 10^6/uL (4.35-5.85); RED CELL DISTRIBUTION WIDTH 13.8 % (10.0-14.5); WHITE BLOOD COUNT 4.7 10^3/uL (4.3-11.0)
[2016-09-13 09:48] LABS: ALANINE AMINOTRANSFERASE 26 U/L (0-55); ALBUMIN 3.8 G/DL (3.2-4.5); ANION GAP 11 MMOL/L (5-14); ASPARTATE AMINO TRANSFERASE 22 U/L (5-34); BILIRUBIN,TOTAL 0.2 MG/DL (0.1-1.0); BLOOD UREA NITROGEN 17 MG/DL (7-18); BUN/CREATININE RATIO 22; CALCIUM 8.8 MG/DL (8.5-10.1); CARBON DIOXIDE 21 MMOL/L (21-32); CHLORIDE 106 MMOL/L (98-107); CREATININE SERUM 0.79 MG/DL (0.60-1.30); GFR ESTIMATED > 60; GLUCOSE 106 MG/DL (70-105); MAGNESIUM 1.9 MG/DL (1.8-2.4); POTASSIUM 4.4 MMOL/L (3.6-5.0); SODIUM 138 MMOL/L (135-145); TOTAL PROTEIN 6.3 G/DL (6.4-8.2)
[2016-09-20 10:31] LABS: BASOPHILS % (AUTO) 0 % (0-10); EOSINOPHILS # (AUTO) 0.1 10^3/uL (0.0-0.3); EOSINOPHILS % (AUTO) 2 % (0-10); LYMPHOCYTES # (AUTO) 0.3 X 10^3 (1.0-4.0); LYMPHOCYTES % (AUTO) 7 % (12-44); MEAN CORPUSCULAR HEMOGLOBIN 31 PG (25-34); MEAN CORPUSCULAR HGB CONC 33 G/DL (32-36); MEAN CORPUSCULAR VOLUME 92 FL (80-99); MEAN PLATELET VOLUME 9.8 FL (7.4-10.4); MONOCYTES # (AUTO) 0.4 X 10^3 (0.0-1.0); MONOCYTES % (AUTO) 11 % (0-12); NEUTROPHILS % (AUTO) 80 % (42-75); PLATELET COUNT 187 10^3/uL (130-400); RED BLOOD COUNT 3.93 10^6/uL (4.35-5.85); RED CELL DISTRIBUTION WIDTH 13.8 % (10.0-14.5); WHITE BLOOD COUNT 3.7 10^3/uL (4.3-11.0)
[2016-09-20 11:06] LABS: ANION GAP 8 MMOL/L (5-14); BLOOD UREA NITROGEN 23 MG/DL (7-18); BUN/CREATININE RATIO 27 (0-20); CARBON DIOXIDE 22 MMOL/L (21-32); CHLORIDE 109 MMOL/L (98-107); CREATININE SERUM 0.85 MG/DL (0.60-1.30); GFR ESTIMATED > 60; GLUCOSE 105 MG/DL (70-105); HEMOLYSIS 30 (-100-29); ICTERUS 0.2 (-100-1.9); LIPEMIA 8 (-100-49); POTASSIUM 4.8 MMOL/L (3.6-5.0); SODIUM 139 MMOL/L (135-145)
[2016-09-27 09:43] LABS: BASOPHILS % (AUTO) 0 % (0-10); EOSINOPHILS # (AUTO) 0.1 10^3/uL (0.0-0.3); EOSINOPHILS % (AUTO) 1 % (0-10); LYMPHOCYTES # (AUTO) 0.2 X 10^3 (1.0-4.0); LYMPHOCYTES % (AUTO) 4 % (12-44); MEAN CORPUSCULAR HEMOGLOBIN 31 PG (25-34); MEAN CORPUSCULAR HGB CONC 34 G/DL (32-36); MEAN CORPUSCULAR VOLUME 92 FL (80-99); MEAN PLATELET VOLUME 9.3 FL (7.4-10.4); MONOCYTES # (AUTO) 0.6 X 10^3 (0.0-1.0); MONOCYTES % (AUTO) 12 % (0-12); NEUTROPHILS # (AUTO) 3.9 X 10^3 (1.8-7.8); NEUTROPHILS % (AUTO) 83 % (42-75); PLATELET COUNT 158 10^3/uL (130-400); RED CELL DISTRIBUTION WIDTH 14.4 % (10.0-14.5); WHITE BLOOD COUNT 4.7 10^3/uL (4.3-11.0)
[2016-09-27 10:10] LABS: ALANINE AMINOTRANSFERASE 32 U/L (0-55); ALBUMIN 3.7 GM/DL (3.2-4.5); ANION GAP 10 MMOL/L (5-14); ASPARTATE AMINO TRANSFERASE 28 U/L (5-34); BILIRUBIN,TOTAL 0.3 MG/DL (0.1-1.0); BLOOD UREA NITROGEN 21 MG/DL (7-18); BUN/CREATININE RATIO 27 (0-20); CARBON DIOXIDE 22 MMOL/L (21-32); CHLORIDE 108 MMOL/L (98-107); CREATININE SERUM 0.78 MG/DL (0.60-1.30); GFR ESTIMATED > 60; GLUCOSE 113 MG/DL (70-105); HEMOLYSIS 8 (-100-29); ICTERUS 0.3 (-100-1.9); LIPEMIA 15 (-100-49); MAGNESIUM 1.8 MG/DL (1.8-2.4); POTASSIUM 4.2 MMOL/L (3.6-5.0); SODIUM 140 MMOL/L (135-145); TOTAL PROTEIN 6.5 GM/DL (6.4-8.2)
[~2016-09-29] VITALS: Ht 167.6 cm; Wt 88.9 kg
[~2016-09-29 09:51] MED LIST changes: +CARBOPLATIN 170 MG in D5W 50 ML IV(CANCER CTR) 50 ML IV SCH; -CATHETER FLUSH 10 ML SYR IV PRN; +DICL100T3 PO; +FAMOTIDINE 20MG/2ML IV (CANCER CTR) IV SCH; -LEVO5TAB19 PO; +LEVO5TAB28 PO; -NF-DICLOTA PO; +NS IV 1000 ML (CANCER CTR) IV SCH; +PACLITAXEL 90 MG in NORMAL SALINE (CANCER CENTER) 250 ML IV SCH; +PALONOSETRON 0.25 MG, DEXAMETHASONE 10 MG/NS 50 ML IVPB IV PRN; +diphenhydrAMINE 25 MG TAB (BENADRYL) CANCER CENTER PO SCH
[2016-10-07] MEDS ORDERED: LEVO750T9 PO (17:40)
[2016-10-07] MEDS ORDERED: ONDA4TAB8 SL (17:40)
== END 2016-10-21 | disposition home or self-care (01) ==
LOC: ONC 09:51
PROVIDERS: ATTEND Internal Medicine Hematology & Oncology
DX: Z51.0 Encounter for antineoplastic radiation therapy (principal); Z51.11 Encounter for antineoplastic chemotherapy; C34.31 Malignant neoplasm of lower lobe, right bronchus or lung; C77.1 Secondary and unspecified malignant neoplasm of intrathoracic lymph nodes; I10 Essential (primary) hypertension; E78.00 Pure hypercholesterolemia, unspecified; M15.9 Polyosteoarthritis, unspecified; Z87.891 Personal history of nicotine dependence; Z79.899 Other long term (current) drug therapy
CPT/HCPCS: 36415; 77280; 77290; 77295; 77300; 77307; 77332; 77334; 77336; 77417; 77470; 80048; 80053; 83735; 85025; 96375; 96413; 96417; 99213; 99214

== ENCOUNTER 2016-10-07 13:24 | Emergency (ER) | payer BC, MEDICARE ==
[~2016-10-07] VITALS: Ht 167.6 cm; Wt 86.7 kg
[~2016-10-07 13:24] MED LIST changes: -CARBOPLATIN 170 MG in D5W 50 ML IV(CANCER CTR) 50 ML IV SCH; -DICL100T3 PO; -FAMOTIDINE 20MG/2ML IV (CANCER CTR) IV SCH; +NF-DICLOTA PO; -NS IV 1000 ML (CANCER CTR) IV SCH; -PACLITAXEL 90 MG in NORMAL SALINE (CANCER CENTER) 250 ML IV SCH; -PALONOSETRON 0.25 MG, DEXAMETHASONE 10 MG/NS 50 ML IVPB IV PRN; -diphenhydrAMINE 25 MG TAB (BENADRYL) CANCER CENTER PO SCH
[2016-10-07 13:50] LABS: BASOPHILS # (AUTO) 0.1 10^3/uL (0.0-0.1); BASOPHILS % (AUTO) 2 % (0-10); EOSINOPHILS % (AUTO) 1 % (0-10); LYMPHOCYTES # (AUTO) 0.2 X 10^3 (1.0-4.0); LYMPHOCYTES % (AUTO) 8 % (12-44); MEAN CORPUSCULAR HEMOGLOBIN 31 PG (25-34); MEAN CORPUSCULAR HGB CONC 34 G/DL (32-36); MEAN CORPUSCULAR VOLUME 91 FL (80-99); MEAN PLATELET VOLUME 9.5 FL (7.4-10.4); MONOCYTES # (AUTO) 0.4 X 10^3 (0.0-1.0); MONOCYTES % (AUTO) 12 % (0-12); NEUTROPHILS # (AUTO) 2.3 X 10^3 (1.8-7.8); NEUTROPHILS % (AUTO) 77 % (42-75); PLATELET COUNT 186 10^3/uL (130-400); RED BLOOD COUNT 3.91 10^6/uL (4.35-5.85); RED CELL DISTRIBUTION WIDTH 14.6 % (10.0-14.5)
[2016-10-07 13:59] LABS: PROTHROMBIN TIME PATIENT 12.5 SEC (12.2-14.7)
[2016-10-07 14:10] LABS: ALANINE AMINOTRANSFERASE 69 U/L (0-55); ANION GAP 11 MMOL/L (5-14); ASPARTATE AMINO TRANSFERASE 48 U/L (5-34); BILIRUBIN,TOTAL 0.4 MG/DL (0.1-1.0); BLOOD UREA NITROGEN 22 MG/DL (7-18); BUN/CREATININE RATIO 23; CALCIUM 9.8 MG/DL (8.5-10.1); CARBON DIOXIDE 24 MMOL/L (21-32); CHLORIDE 104 MMOL/L (98-107); CREATININE SERUM 0.94 MG/DL (0.60-1.30); GFR ESTIMATED > 60; GLUCOSE 127 MG/DL (70-105); MAGNESIUM 1.7 MG/DL (1.8-2.4); POTASSIUM 4.3 MMOL/L (3.6-5.0); SODIUM 139 MMOL/L (135-145); TOTAL PROTEIN 7.4 GM/DL (6.4-8.2)
[2016-10-07 14:17] LABS: TROPONIN I < 0.30 NG/ML (<0.30)
[2016-10-07] MEDS: NS IV 1000 ML 1,000 ML IV ONE ×2 (14:24→17:00)
--- NOTE | 2016-10-07 14:37 | Diagnostic Imaging Report ---
EXAMINATION: PA and lateral views of the chest. INDICATION: Chills and shortness of breath. FINDINGS: There is right middle and lower lobe consolidation and atelectasis. The left lung appears clear. There is no significant effusion. No pneumothorax. The mediastinum and zunilda appear unremarkable. The right cardiac border is obscured. There is slight deviation of the lower mediastinum to the right side from atelectatic component. Lumbar and cervical spine fusion hardware seen. IMPRESSION: Right middle and lower lobe consolidation likely related to pneumonia with atelectatic component. Dictated by: Dictated on workstation # [id number]
[2016-10-07] MEDS: fentaNYL INJECTION 100 MCG/2 ML AMP IVP PRN (14:45)
[2016-10-07] MEDS: ONDANSETRON 4 MG/2 ML (SDV) Z0FRAN IVP ONE ×2 (14:50→16:20)
--- NOTE | 2016-10-07 14:59 | ED Chest Pain ---
General Chief Complaint: Chest Pain Stated Complaint: CHILLS/SWEATS/CHEST PAIN/SOB/N/V Nursing Triage Note: PT REPORTS R SIDED CHEST PAIN THAT HAS BEEN ONGOING. HE REPORTS DIFFICULTY SWALLOWING WITH THE PAIN. HE ALSO C/O N/V AND DIAPHORESIS THIS AM. Nursing Sepsis Screen: Possible Sepsis Risk Source: patient Exam Limitations: no limitations History of Present Illness Time seen by provider: 13:27 Initial Comments This 66-year-old gentleman presents to emergency room with right-sided chest pain that is worse with swallowing. He took aspirin this morning but then vomited. He has history of right lower lobe resection for treatment of lung cancer. He also just finished chemotherapy and radiation. He is a patient of Dr. Cooper. He also complains of shortness of air, cough, and chills. Temperature is 99.9. He has no history of coronary artery disease. Allergies and Home Medications Allergies Coded Allergies: No Known Drug Allergies (Unverified , 01/29/16) Home Medications Aspirin 81 Mg Tab.chew, 81 MG PO DAILY, (Reported) Celecoxib 200 Mg Capsule, 200 MG PO BID, (Reported) Cetirizine HCl 10 Mg Tablet, 5 MG PO DAILY, (Reported) TAKES 1/2 OF A (10 MG) TABLET Diclofenac Sod 100 Mg Tab, 100 MG PO BID, (Reported) ON HOLD FOR NOW Levocetirizine Dihydrochloride 5 Mg Tablet, 5 MG PO HS, (Reported) Levofloxacin 750 Mg Tablet, 750 MG PO DAILY, #4 Start October 08 Prescribed by: LAURIE CALDERON on 10/07/161739 Multivitamin 1 Each Tablet, 1 TAB PO DAILY, (Reported) Olmesartan Medoxomil 20 Mg Tablet, 20 MG PO HS, (Reported) [place]-3 Acid Ethyl Esters 1 Gm Capsule, 2 GM PO DAILY, (Reported) TAKES 2 (1 GM) CAPSULES Ondansetron 4 Mg Tab.rapdis, 4 MG SL Q4H, #10 Prescribed by: LAURIE CALDERON on 10/07/161739 Rosuvastatin Calcium 20 Mg Tablet, 20 MG PO HS, (Reported) Sertraline HCl 50 Mg Tablet, 50 MG PO DAILY, (Reported) Zolpidem Tartrate 10 Mg Tablet, 10 MG PO HS PRN for INSOMNIA, (Reported) Review of Systems Constitutional: see HPI EENTM: No Symptoms Reported Respiratory: See HPI Cardiovascular: See HPI Gastrointestinal: No Symptoms Reported Genitourinary: No Symptoms Reported Musculoskeletal: no symptoms reported Skin: no symptoms reported Psychiatric/Neurological: No Symptoms Reported Endocrine: No Symptoms Reported Past Aevsqqe-Vruhvu-Aivsoy Hx Patient Social History Alcohol Use: Occasionally Uses Recreational Drug Use: No Smoking Status: Former Smoker Type Used: Electronic/Vapor Former Smoker/When Quit: Jun 24, 2012 2nd Hand Smoke Exposure: No Recent Foreign Travel: No Contact w/Someone Who Travel: No Recent Infectious Disease Expo: No Recent Hopitalizations: No Immunizations Up To Date Tetanus Booster (TDap): Unknown Date of Pneumonia Vaccine: Jan 02, 2013 Date of Influenza Vaccine: Jan 22, 2016 Seasonal Allergies Seasonal Allergies: No Surgeries HX Surgeries: Yes (BACK SX X3, NECK SX, LEFT KNEE SCOPE X2, ) Surgeries: Lobectomy (right lower lobe) Respiratory Hx Respiratory Disorders: Yes Respiratory Disorders: Pneumonia Cardiovascular Hx Cardiac Disorders: Yes Cardiac Disorders: Hypertension Neurological Hx Neurological Disorders: No Reproductive System Hx Reproductive Disorders: No Genitourinary Hx Genitourinary Disorders: No Gastrointestinal Hx Gastrointestinal Disorders: Yes Gastrointestinal Disorders: Gastroesophageal Reflux Musculoskeletal Hx Musculoskeletal Disorders: Yes Musculoskeletal Disorders: Arthritis Endocrine Hx Endocrine Disorders: No HEENT HX ENT Disorders: Yes (SMALL CATARACTS, GLASSES, ) HEENT Disorders: Cataract Cancer Hx Cancer: Yes Cancer: Skin Psychosocial Hx Psychiatric Problems: Yes Behavioral Health Disorders: Depression Integumentary HX Skin/Integumentary Disorder: Yes Skin/Integumentary Disorders: Psoriasis Blood Transfusions Hx Blood Disorders: No Family Medical History Family Medial History: Osmar's disease 19 FATHER Arthritis 19 FATHER 19 MOTHER G8 BROTHER G8 SISTER Hypertension 19 FATHER Myocardial infarction 19 FATHER Neoplasm 19 FATHER (LUNG CA) 19 MOTHER (LUNG CA) Respiratory disorder 19 FATHER (lung ca, COPD) 19 MOTHER (lung ca) Thyroid disease 19 MOTHER Physical Exam Vital Signs Vital Sign - Last 12Hours 10/07/16 10/07/16 13:25 13:35 Temp 99.9 Pulse 115 Resp 21 B/P (MAP) 99/68 Pulse Ox 94 O2 Delivery Room Air O2 Flow Rate 2.00 Capillary Refill : Less Than 3 Seconds General Appearance: No Apparent Distress, WD/WN HEENT: PERRL/EOMI, Normal ENT Inspection, Pharynx Normal Respiratory: Lungs Clear, Normal Breath Sounds, No Accessory Muscle Use, No Respiratory Distress, Decreased Breath Sounds (on the right) Cardiovascular: No Edema, No Murmur, Tachycardia Gastrointestinal: Normal Bowel Sounds, Non Tender, Soft Extremity: Normal Inspection, Non Tender, No Calf Tenderness, No Pedal Edema Neurologic/Psychiatric: Alert, Oriented x3, No Motor/Sensory Deficits, Normal Mood/Affect, circus roustabout II-XII Norm as Tested Skin: Normal Color, Warm/Dry Focused Exam Lactic Acid Level Laboratory Tests Test 10/07/16 13:35 Lactic Acid Level 1.28 MMOL/L (0.50-2.00) Progress/Results/Core Measures Results/Orders Lab Results Laboratory Tests Test 10/07/16 13:35 10/07/16 17:00 Range/Units White Blood Count 3.0 L 4.3-11.0 10^3/uL Red Blood Count 3.91 L 4.35-5.85 10^6/uL Hemoglobin 12.0 L 13.3-17.7 G/DL Hematocrit 36 L 40-54 % Mean Corpuscular Volume 91 80-99 FL Mean Corpuscular Hemoglobin 31 25-34 PG Mean Corpuscular Hemoglobin Concent 34 32-36 G/DL Red Cell Distribution Width 14.6 H 10.0-14.5 % Platelet Count 186 130-400 10^3/uL Mean Platelet Volume 9.5 7.4-10.4 FL Neutrophils (%) (Auto) 77 H 42-75 % Lymphocytes (%) (Auto) 8 L 12-44 % Monocytes (%) (Auto) 12 0-12 % Eosinophils (%) (Auto) 1 0-10 % Basophils (%) (Auto) 2 0-10 % Neutrophils # (Auto) 2.3 1.8-7.8 X 10^3 Lymphocytes # (Auto) 0.2 L 1.0-4.0 X 10^3 Monocytes # (Auto) 0.4 0.0-1.0 X 10^3 Eosinophils # (Auto) 0.0 0.0-0.3 10^3/uL Basophils # (Auto) 0.1 0.0-0.1 10^3/uL Prothrombin Time 12.5 12.2-14.7 SEC INR Comment 1.0 0.8-1.4 Activated Partial Thromboplast Time 29 24-35 SEC Sodium Level 139 135-145 MMOL/L Potassium Level 4.3 3.6-5.0 MMOL/L Chloride Level 104 98-107 MMOL/L Carbon Dioxide Level 24 21-32 MMOL/L Anion Gap 11 5-14 MMOL/L Blood Urea Nitrogen 22 H 7-18 MG/DL Creatinine 0.94 0.60-1.30 MG/DL Estimat Glomerular Filtration Rate > 60 BUN/Creatinine Ratio 23 Glucose Level 127 H 70-105 MG/DL Lactic Acid Level 1.28 0.50-2.00 MMOL/L Calcium Level 9.8 8.5-10.1 MG/DL Magnesium Level 1.7 L 1.8-2.4 MG/DL Total Bilirubin 0.4 0.1-1.0 MG/DL Aspartate Amino Transf (AST/SGOT) 48 H 5-34 U/L Alanine Aminotransferase (ALT/SGPT) 69 H 0-55 U/L Alkaline Phosphatase 172 H 40-136 U/L Troponin I < 0.30 <0.30 NG/ML C-Reactive Protein High Sensitivity 13.16 H 0.00-0.50 MG/DL Total Protein 7.4 6.4-8.2 GM/DL Albumin 4.0 3.2-4.5 GM/DL Urine Color YELLOW Urine Clarity CLEAR Urine pH 7 5-9 Urine Specific [place] 1.005 L 1.016-1.022 Urine Protein 1+ H NEGATIVE Urine Glucose (UA) NEGATIVE NEGATIVE Urine Ketones NEGATIVE NEGATIVE Urine Nitrite NEGATIVE NEGATIVE Urine Bilirubin NEGATIVE NEGATIVE Urine Urobilinogen 1 NORMAL MG/DL Urine Leukocyte Esterase NEGATIVE NEGATIVE Urine RBC (Auto) NEGATIVE NEGATIVE Urine RBC NONE /HPF Urine WBC 0-2 /HPF Urine Crystals NONE /LPF Urine Bacteria NEGATIVE /HPF Urine Casts NONE /LPF Urine Mucus NEGATIVE /LPF Urine Culture Indicated NO My Orders Orders - LAURIE LANE MD Cbc With Automated Diff (10/07/16 13:42) Comprehensive Metabolic Panel (10/07/16 13:42) Lactic Acid Analyzer (10/07/16 13:42) Blood Culture (10/07/16 13:42) Sputum Culture (10/07/16 13:42) Ua Culture If Indicated (10/07/16 13:42) Protime With Inr (10/07/16 13:42) Partial Thromboplastin Time (10/07/16 13:42) O2 (10/07/16 13:42) Saline Lock/Iv-Start (10/07/16 13:42) Ekg Tracing (10/07/16 13:42) Vital Signs Adult Sepsis Patie Q1HR (10/07/16 13:42) Remove Rings In Anticipation O (10/07/16 13:42) Chest Pa/Lat (2 View) (10/07/16 13:42) Magnesium (10/07/16 13:42) Troponin I (10/07/16 13:42) Ns Iv 1000 Ml (Sodium Chloride 0.9%) (10/07/16 14:19) Fentanyl Injection (Sublimaze Injection (10/07/16 14:45) Ondansetron Injection (Zofran Injectio (10/07/16 15:00) Hs C Reactive Protein (10/07/16 15:01) Ct Angio Chest W (10/07/16 15:06) Iohexol Injection (Omnipaque 350 Mg/Ml 1 (10/07/16 15:30) Ns (Ivpb) (Sodium Chloride 0.9% Ivpb Bag (10/07/16 15:30) Sodium Chloride Flush (Catheter Flush Sy (10/07/16 15:30) Fentanyl Injection (Sublimaze Injection (10/07/16 16:15) Ondansetron Injection (Zofran Injectio (10/07/16 16:15) Ketorolac Injection (Toradol Injection) (10/07/16 16:45) Levofloxacin 750 Mg/150 Ml Iv (Levaquin (10/07/16 16:45) Ns Iv 1000 Ml (Sodium Chloride 0.9%) (10/07/16 16:50) Medications Given in ED Current Medications Medications Dose Ordered Sig/Yumiko Route Start Time Stop Time Status Last Admin Dose Admin Fentanyl Citrate 50 mcg ONCE ONCE IVP 10/07/16 16:15 10/07/16 16:16 DC 10/07/16 16:20 50 MCG Fentanyl Citrate 50 mcg ONCE PRN IVP 10/07/16 14:45 10/07/16 18:25 DC 10/07/16 14:45 50 MCG Iohexol 150 ml ONCE ONCE IV 10/07/16 15:30 10/07/16 15:31 DC 10/07/16 15:31 125 ML Ketorolac Tromethamine 30 mg ONCE ONCE IVP 10/07/16 16:45 10/07/16 16:46 DC 10/07/16 17:08 30 MG Levofloxacin/ Dextrose 150 ml @ 100 mls/hr ONCE ONCE IV 10/07/16 16:45 10/07/16 18:14 DC 10/07/16 17:00 100 MLS/HR Ondansetron HCl 4 mg ONCE ONCE IVP 10/07/16 15:00 10/07/16 15:01 DC 10/07/16 14:50 4 MG Ondansetron HCl 4 mg ONCE ONCE IVP 10/07/16 16:15 10/07/16 16:16 DC 10/07/16 16:20 4 MG Sodium Chloride 10 ml NEEDED PRN IV 10/07/16 15:30 10/07/16 18:25 DC 10/07/16 15:31 10 ML Sodium Chloride 100 ml ONCE ONCE IV 10/07/16 15:30 10/07/16 15:31 DC 10/07/16 15:31 80 ML Sodium Chloride 1,000 ml @ 0 mls/hr Q0M ONCE IV 10/07/16 14:19 10/07/16 14:20 DC 10/07/16 14:24 0 MLS/HR Sodium Chloride 1,000 ml @ 0 mls/hr Q0M ONCE IV 10/07/16 16:50 10/07/16 16:51 DC 10/07/16 17:00 0 MLS/HR Vital Signs/I&O Vital Sign - Last 12Hours 10/07/16 10/07/16 10/07/16 13:25 13:25 13:35 Temp 99.9 Pulse 115 Resp 21 B/P (MAP) 99/68 Pulse Ox 94 98 O2 Delivery Room Air Room Air Nasal Cannula O2 Flow Rate 2.00 Blood Pressure Mean: 78 Progress Note : Time: 16:51 Progress Note Because of patient's symptoms of right-sided chest pain and tachycardia in the context of neoplastic disease, it was felt most appropriate to rule out pulmonary embolus with CT angiogram of the chest. This would also allow for the evaluation of structural abnormalities such as recurrent tumor. Patient was agreeable to CT. CT scan was well correlated with chest x-ray. There is pneumonitis secondary to radiation versus pneumonia. Pulmonary embolus was ruled out. Given patient' s symptoms, we will presume this is pneumonia. Case was reviewed with Dr. Masters. He is in agreement with giving initial treatment in the emergency room with IV antibiotics followed by outpatient therapy. Patient has clear instructions that he is to return if symptoms worsen. Levaquin is being selected as the pattern of infiltrate appears atypical. Patient was finally able to urinate and his urine was very dark. He also remains mildly tachycardic. A second liter of IV fluids will be administered while his antibiotics are running. ECG Initial ECG Impression Date: Oct 07, 2016 Initial ECG Impression Time: 13:29 Initial ECG Rate: 116 Initial ECG Rhythm: S.Tach Comment Sinus tachycardia with no ST elevation or depression. No abnormal intervals or axis deviation. Diagnostic Imaging Diagonstic Imaging: Xray Plain Films/CT/US/NM/MRI: chest Comments Chest x-ray viewed by me and report reviewed. See report below: NAME: SRI MINOR MED REC#: [id number] PT STATUS: REG ER : 1950 PHYSICIAN: LAURIE LANE MD ADMIT DATE: 10/07/16/ER Signed Date of Exam: 10/07/16 CHEST PA/LAT (2 VIEW) EXAMINATION: PA and lateral views of the chest. INDICATION: Chills and shortness of breath. FINDINGS: There is right middle and lower lobe consolidation and atelectasis. The left lung appears clear. There is no significant effusion. No pneumothorax. The mediastinum and zunilda appear unremarkable. The right cardiac border is obscured. There is slight deviation of the lower mediastinum to the right side from atelectatic component. Lumbar and cervical spine fusion hardware seen. IMPRESSION: Right middle and lower lobe consolidation likely related to pneumonia with atelectatic component. Dictated by: Dictated on workstation # [id number] Dict: 10/07/16 1430 Trans: 10/07/16 1504 Interpreted by: KESHA HARRIS MD Electronically signed by: KESHA HARRIS MD 10/07/16 1504 Diagonstic Imaging: CT Plain Films/CT/US/NM/MRI: chest Comments CT angiogram of the chest viewed by me and report reviewed. See report below: NAME: SRI MINOR MED REC#: [id number] PT STATUS: REG ER : 1950 PHYSICIAN: LAURIE LANE MD ADMIT DATE: 10/07/16/ER Draft Date of Exam:10/07/16 CT ANGIO CHEST W PROCEDURE: CT angiography of the chest with contrast. TECHNIQUE: Multiple contiguous axial images were obtained through the chest after uneventful bolus administration of intravenous contrast. Reconstructed CTA MIP acquisitions were also performed. INDICATION: Chills. Shortness of breath. History of lung cancer. COMPARISON: Correlation with PET/CT of 06/01/2016 is made. FINDINGS: There is elevation of the right hemidiaphragm. In the right lower lobe, there are mixed ground-glass and patchy areas of dense consolidation seen which could be atypical pneumonia or inflammatory pneumonitis. Radiation pneumonitis is a possibility. An element of scarring and atelectasis appears to be present. Upper lobe predominant emphysema is seen. The pulmonary arteries are well opacified with no filling defects to suggest pulmonary embolism. The thoracic aorta is normal in caliber. No dissection. There are surgical sutures seen near the infrahilar region, presumably related to segmental resection of the tumor. The left lung demonstrates no significant consolidation or suspicious nodule. A tiny right pleural effusion is seen. There is no mediastinal mass. There is a mildly enlarged lymph node in the right hilum measuring 1.2 cm. A precarinal lymph node measuring 1.1 cm is similar to prior exams. There is also a stable left hilar 9 mm lymph node. No axillary lymphadenopathy. The sections in the upper abdomen appear grossly unremarkable. The osseous structures demonstrate prominent degenerative changes. IMPRESSION: 1. There is suggestion of partial right lower lobe lobectomy. 2. In the remaining portion of the right lower lobe, there are mixed predominantly ground-glass areas of consolidation which could relate to atypical pneumonia or inflammatory or radiation pneumonitis. 3. Emphysema. 4. Nonspecific mildly prominent hilar and mediastinal lymph nodes, not significantly changed from prior exams. Continued followup recommended. Dictated on workstation # [id number] Dict: 10/07/16 1553 Trans: 10/07/16 1610 [id number] Interpreted by: KESHA HARRIS MD Departure Impression Impression: Primary Impression: Right middle lobe pneumonia Qualified Codes: J18.1 - Lobar pneumonia, unspecified organism Additional Impressions: Right-sided chest pain Nausea & vomiting Qualified Codes: R11.2 - Nausea with vomiting, unspecified Hypovolemia Disposition: 01 HOME, SELF-CARE Condition: Improved Departure-Patient Inst. Decision time for Depature: 17:15 Referrals: ELBA GROSSMAN DO (PCP/Family) Primary Care Physician Patient Instructions: Community-Acquired Pneumonia in Adults Add. Discharge Instructions: Drink plenty of clear liquids. Start your Levaquin antibiotic tomorrow. Complete the entire course. Return to care if symptoms worsen, especially if you develop fevers greater than 100. Follow-up with your primary care provider next week. You may take diclofenac or Celebrex for primary pain control. Add Tylenol up to 1000 mg every 6 hours as needed for additional pain relief. Use Zofran (ondansetron) dissolved under the tongue every 4 hours as needed for nausea and vomiting. All discharge instructions reviewed with patient and/or family. Voiced understanding. Scripts Ondansetron (Zofran Odt) 4 Mg Tab.rapdis 4 MG SL Q4H, #10 TAB Prov: LAURIE LANE MD 10/07/16 Levofloxacin (Levaquin) 750 Mg Tablet 750 MG PO DAILY, #4 TAB Start October 08 Prov: LAURIE LANE MD 10/07/16 Copy Copies To 1: CLOTILDE MASTERS JOSHUA T MD Oct 07, 2016 14:59
[2016-10-07] MEDS: NS 100 ML (IVPB) BAG IV ONE (15:31)
[2016-10-07] MEDS: CATHETER FLUSH 10 ML SYR IV PRN (15:31)
[2016-10-07] MEDS: IOHEXOL 350 MG/ML 150 ML (OMNIPAQUE 350) VIAL IV ONE (15:31)
--- NOTE | 2016-10-07 16:10 | Diagnostic Imaging Report ---
PROCEDURE: CT angiography of the chest with contrast. TECHNIQUE: Multiple contiguous axial images were obtained through the chest after uneventful bolus administration of intravenous contrast. Reconstructed CTA MIP acquisitions were also performed. INDICATION: Chills. Shortness of breath. History of lung cancer. COMPARISON: Correlation with PET/CT of 06/01/2016 is made. FINDINGS: There is elevation of the right hemidiaphragm. In the right lower lobe, there are mixed ground-glass and patchy areas of dense consolidation seen which could be atypical pneumonia or inflammatory pneumonitis. Radiation pneumonitis is a possibility. An element of scarring and atelectasis appears to be present. Upper lobe predominant emphysema is seen. The pulmonary arteries are well opacified with no filling defects to suggest pulmonary embolism. The thoracic aorta is normal in caliber. No dissection. There are surgical sutures seen near the infrahilar region, presumably related to segmental resection of the tumor. The left lung demonstrates no significant consolidation or suspicious nodule. A tiny right pleural effusion is seen. There is no mediastinal mass. There is a mildly enlarged lymph node in the right hilum measuring 1.2 cm. A precarinal lymph node measuring 1.1 cm is similar to prior exams. There is also a stable left hilar 9 mm lymph node. No axillary lymphadenopathy. The sections in the upper abdomen appear grossly unremarkable. The osseous structures demonstrate prominent degenerative changes. IMPRESSION: 1. There is suggestion of partial right lower lobe lobectomy. 2. In the remaining portion of the right lower lobe, there are mixed predominantly ground-glass areas of consolidation which could relate to atypical pneumonia or inflammatory or radiation pneumonitis. 3. Emphysema. 4. Nonspecific mildly prominent hilar and mediastinal lymph nodes, not significantly changed from prior exams. Continued followup recommended. Dictated by: Dictated on workstation # [id number]
[2016-10-07] MEDS: fentaNYL INJECTION 100 MCG/2 ML AMP IVP ONE (16:20)
[2016-10-07] MEDS: LEVOFLOXACIN 750 MG/150 ML IV 150 ML IV ONE (17:00)
[2016-10-07] MEDS: KETOROLAC 30 MG/ML VIAL IVP ONE (17:08)
[2016-10-07 17:13] LABS: BILIRUBIN,URINE NEGATIVE (NEGATIVE); KETONES,URINE NEGATIVE (NEGATIVE); LEUKOCYTE ESTERASE ,URINE NEGATIVE (NEGATIVE); NITRITE,URINE NEGATIVE (NEGATIVE); PH,URINE 7 (5-9); PROTEIN,URINE 1+ (NEGATIVE); UROBILINOGEN,URINE 1 MG/DL (NORMAL)
[2016-10-07 17:24] LABS: WBC,URINE 0-2 /HPF
[2016-10-07] MEDS ORDERED: ONDA4TAB8 SL (17:40)
[2016-10-07] MEDS ORDERED: LEVO750T9 PO (17:40)
[2016-10-07 18:25] VITALS: BP 99/68
--- OUTSIDE RECORDS SUMMARY | 2016-10-11 09:53 | XMS REPORT | Continuity of Care Document ---
Author Author [facility] Organization [facility] Address Unknown Phone Unavailable Care Team Providers Care Strand Galvanizer Name Role Phone Alan Garcia PCP [phone] Source Comments Some departments are not documenting in the electronic medical record. If you do not see the information that you expected, contact Release of Information in the Health Information Management department at [phone] for further assistance in locating additional records.[facility] Active Allergies and Adverse Reactions No Known Allergies Current Medications Prescription Sig. Disp. Refills Start End Date Status Date sertraline (ZOLOFT) 100 Take 100 mg by mouth Active mg tablet daily. Levocetirizine 5 mg tab Take 5 mg by mouth at Active bedtime daily. olmesartan(+) (BENICAR) Take 20 mg by mouth at Active 20 mg tablet bedtime daily. rosuvastatin (CRESTOR) 20 Take 20 mg by mouth at Active mg tablet bedtime daily. zolpidem (AMBIEN) 10 mg Take 10 mg by mouth at Active tablet bedtime as needed for Sleep. cetirizine (ZYRTEC) 10 mg Take 10 mg by mouth every Active tablet morning. diclofenac sodium Take 100 mg by mouth Active (VOLTAREN-XR) 100 mg xr twice daily. Take with tablet food. acetaminophen (TYLENOL) Take 1-2 Tabs by mouth 0 02/18/20 Active 500 mg tablet every 6 hours as needed 16 for Pain. Max of 4,000 mg of acetaminophen in [address](+) Take 20 mg by mouth daily Active (PRILOSEC) 20 mg capsule before breakfast. aspirin EC 81 mg tablet Take 81 mg by mouth Active daily. Take with food. vitamins, multiple tablet Take 1 Tab by mouth Active daily. [place]-3 Acid Ethyl Esters Take 2 g by mouth at Active (LOVAZA) 1 gram cap bedtime daily. amitriptyline (ELAVIL) 10 Take 40 mg by mouth at Active mg tablet bedtime as needed. 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) 07/27/2016 Most Recent Encounters Date Type Specialty Providers Description 07/27/2016 [facility] Radiology Abigail Bocanegra, STAKING ENGINEER Encounter 07/27/2016 Office Visit Cardiothoracic Surgery Siobhan Enriquez MD Squamous cell carcinoma of right lung (HCC) (Primary Dx) 07/08/2016 [facility] Siobhan Enriquez MD COPD (chronic obstructive - Encounter pulmonary disease) (HCC) 07/12/2016 Social History Tobacco Use Types Packs/Day Years Used Date Former Smoker Cigarettes 2 40 Quit: 04/04/2005 Smokeless Tobacco: Never Used Comments: currently using e cigarette Alcohol Use Drinks/Week oz/Week Comments Yes 0 Standard 0.0 2-3 per month; Pt reports former history of "Half drinks or a liter a day" of rum /day for 10-15 yrs equivalent Last Filed Vital Signs Vital Sign Reading Time Taken Blood Pressure 114/60 07/27/2016 12:32 PM CDT Pulse 92 07/27/2016 12:32 PM CDT Temperature 36.6 C (97.8 F) 07/27/2016 12:32 PM CDT Respiratory Rate - - Height 1.676 m (5' 6") 07/27/2016 12:32 PM CDT Weight 87.091 kg (192 lb) 07/27/2016 12:32 PM CDT Body Mass Index 31 07/27/2016 12:32 PM CDT Oxygen Saturation 96% 07/27/2016 12:32 PM CDT Plan of Care Health Maintenance Due Date Last Done Comments Hepatitis C Screening 1950 Physical (Comprehensive) 09/22/1958 Exam Pertussis Vaccine 09/22/1962 Tetanus Vaccine 09/22/1968 Colorectal Cancer 09/22/2001 Screening Shingles Vaccine 2011 Abdominal Aortic Aneurysm 09/22/2016 Screening Prevnar/Pneumovax (#1) 09/22/2016 Influenza Vaccine 12/03/2016 Procedures from Last 3 Months Procedure Name Priority Date/Time Associated Diagnosis Comments EXERCISE OXIMETRY-SCAN 07/14/2016 Results for this 7:54 AM CDT procedure are in the results section. EXERCISE OXIMETRY-SCAN 07/14/2016 Results for this 7:54 AM CDT procedure are in the results section. ECG-SCAN 07/14/2016 Results for this 7:28 AM CDT procedure are in the results section. EXERCISE OXIMETRY-SCAN 07/13/2016 Results for this 9:42 AM CDT procedure are in the results section. Results from Last 3 Months * PATHOLOGY INTEROPERATIVE REPORT SCAN (07/29/2016 8:15 AM) Narrative Ordered by an unspecified provider. * CHEST 2 VIEWS (07/27/2016 12:20 PM) Impressions Persistent right basilar consolidation with slight decrease in size of the right pleural effusion. Finalized by Nathaniel Amaya D.O. on 07/27/2016 12:58 PM. Dictated by Nathaniel Amaya D.O. on 07/27/2016 12:56 PM. Narrative Chest 2 views CLINICAL HISTORY: Status post right VATS; primary malignant neoplasm of bronchus of right lower lobe COMPARISON: July 12, 2016 FINDINGS: Prior ACDF. Slight decrease in size of the now small right pleural effusion. Persistent right basilar consolidation. The left lung remains clear. No pneumothorax. Procedure Note Interface, Radiant Results - Tue Jul 27, 2016 1:02 PM CDT Chest 2 views CLINICAL HISTORY: Status post right VATS; primary malignant neoplasm of bronchus of right lower lobe COMPARISON: July 12, 2016 FINDINGS: Prior ACDF. Slight decrease in size of the now small right pleural effusion. Persistent right basilar consolidation. The left lung remains clear. No pneumothorax. IMPRESSION Persistent right basilar consolidation with slight decrease in size of the right pleural effusion. Finalized by Nathaniel Amaya D.O. on 07/27/2016 12:58 PM. Dictated by Nathaniel Amaya D.O. on 07/27/2016 12:56 PM. * EXERCISE OXIMETRY-SCAN (07/14/2016 7:54 AM) Narrative Ordered by an unspecified provider. * EXERCISE OXIMETRY-SCAN (07/14/2016 7:54 AM) Narrative Ordered by an unspecified provider. * ECG-SCAN (07/14/2016 7:28 AM) Narrative Ordered by an unspecified provider. * EXERCISE OXIMETRY-SCAN (07/13/2016 9:42 AM) Narrative Ordered by an unspecified provider. * CHEST SINGLE VIEW (07/12/2016 6:20 AM) Impressions 1.Prior right lower lobectomy with no evidence of pneumothorax. 2.Persistent right lower lung consolidation, likely representing atelectasis and/or nonspecific pneumonitis. Approved by Wili Jose M.D. on 07/12/2016 11:25 AM By my electronic signature, I attest that I have personally reviewed the images for this examination and formulated the interpretations and opinions expressed in this report Finalized by Bernardo Alvarez M.D. on 07/12/2016 11:45 AM. Dictated by Wili Jose M.D. on 07/12/2016 10:24 AM. Narrative Procedure: CHEST SINGLE VIEW Clinical Indication: Chest tube placement. Comparison: Chest radiographs from July 11, 2016. Findings: There is mild cardiomegaly. Status post right lower lobectomy. There is persistent elevation of the right hemidiaphragm with a small right pleural effusion. No significant pneumothorax identified. There is mild subcutaneous emphysema about the right lateral chest wall. Partial visualization of prior ACDF. Procedure Note Interface, Radiant Results - TueJul 12, 2016 11:48 AM CDT Procedure: CHEST SINGLE VIEW Clinical Indication: Chest tube placement. Comparison: Chest radiographs from July 11, 2016. Findings: There is mild cardiomegaly. Status post right lower lobectomy. There is persistent elevation of the right hemidiaphragm with a small right pleural effusion. No significant pneumothorax identified. There is mild subcutaneous emphysema about the right lateral chest wall. Partial visualization of prior ACDF. IMPRESSION 1. Prior right lower lobectomy with no evidence of pneumothorax. 2. Persistent right lower lung consolidation, likely representing atelectasis and/or nonspecific pneumonitis. Approved by Wili Jose M.D. on 07/12/2016 11:25 AM By my electronic signature, I attest that I have personally reviewed the images for this examination and formulated the interpretations and opinions expressed in this report Finalized by Bernardo Alvarez M.D. on 07/12/2016 11:45 AM. Dictated by Wili Jose M.D. on 07/12/2016 10:24 AM.
--- OUTSIDE RECORDS SUMMARY | 2016-10-11 09:53 | XMS REPORT | Continuity of Care Document ---
Author Author [facility] Organization [facility] Address Unknown Phone Unavailable Care Team Providers Care Screener And Blender Name Role Phone [employer] Unavailable Unavailable Problems Medications Allergies, Adverse Reactions, Alerts Immunizations Results Vital Signs Encounters Procedures Plan of Care Social History Assessment and Plan Family History Value Date Source Advance Directives Order Name Results Value Date Source
--- OUTSIDE RECORDS SUMMARY | 2016-10-11 09:54 | XMS REPORT | Continuity of Care Document ---
Author Author [facility] Organization [facility] Address Unknown Phone Unavailable Allergies Active Description Code Type Severity Reaction Onset Reported/Identified Relationship to Patient Clinical Status Yes No Known Drug Allergies [id number] Drug Allergy Unknown N/ A 01/29/2016 Medications Problems Date Dx Coded Attending Type Code Diagnosis Diagnosed By 06/11/2015 JEREMY GUY MD, Ot M17.12 UNILATERAL PRIMARY OSTEOARTHRITIS, LEFT 06/11/2015 JEREMY GUY MD Ot Z01.811 ENCOUNTER FOR PREPROCEDURAL RESPIRATORY 06/11/2015 JEREMY GYU MD, Ot Z01.812 ENCOUNTER FOR PREPROCEDURAL LABORATORY E 06/11/2015 JEREMY GUY MD Ot Z11.2 ENCOUNTER FOR SCREENING FOR OTHER BACTER 06/27/2015 JEREMY GUY MD Ot I10 ESSENTIAL (PRIMARY) HYPERTENSION 06/27/2015 JEREMY GUY MD, Ot M17.12 UNILATERAL PRIMARY OSTEOARTHRITIS, LEFT 06/27/2015 JEREMY GUY MD Ot Z87.891 PERSONAL HISTORY OF NICOTINE DEPENDENCE 01/07/2016 DAKOTA EVERETT MD Ot M41.9 SCOLIOSIS, UNSPECIFIED 01/09/2016 DAKOTA EVERETT MD Ot M41.9 SCOLIOSIS, UNSPECIFIED 01/14/2016 DAKOTA EVERETT MD Ot R91.8 OTHER NONSPECIFIC ABNORMAL FINDING OF NILS 01/14/2016 DAKOTA EVERETT MD Ot M41.9 SCOLIOSIS, UNSPECIFIED 01/14/2016 DAKOTA EVERETT MD Ot R91.8 OTHER NONSPECIFIC ABNORMAL FINDING OF NILS 01/14/2016 DAKOTA EVERETT MD Ot M41.9 SCOLIOSIS, UNSPECIFIED 01/21/2016 BRITTANY LANIER DO Ot E66.9 OBESITY, UNSPECIFIED 01/21/2016 BRITTANY LANIER DO Ot R06.00 DYSPNEA, UNSPECIFIED 01/21/2016 BRITTANY LANIER DO Ot R91.8 OTHER NONSPECIFIC ABNORMAL FINDING OF NILS 01/22/2016 DAKOTA EVERETT MD Ot R91.8 OTHER NONSPECIFIC ABNORMAL FINDING OF NILS 01/29/2016 YOLANDE JONES BRITTANY M Ot E66.9 OBESITY, UNSPECIFIED 01/29/2016 YOLANDE BRITTANY JONES Ot R06.00 DYSPNEA, UNSPECIFIED 01/29/2016 YOLANDE DO BRITTANY M Ot R91.8 OTHER NONSPECIFIC ABNORMAL FINDING OF NILS 01/31/2016 TYSON DO, MARINA Ot I10 ESSENTIAL (PRIMARY) HYPERTENSION 01/31/2016 TYSON DO, MARINA Ot J44.9 CHRONIC OBSTRUCTIVE PULMONARY DISEASE, U 01/31/2016 TYSON DO, MARINA Ot J95.811 POSTPROCEDURAL PNEUMOTHORAX 01/31/2016 TYSON DO, MARINA Ot K21.9 GASTRO-ESOPHAGEAL REFLUX DISEASE WITHOUT 01/31/2016 TYSON DO, MARINA Ot K59.00 CONSTIPATION, UNSPECIFIED 01/31/2016 TYSON DO, MARINA Ot M19.90 UNSPECIFIED OSTEOARTHRITIS, UNSPECIFIED 01/31/2016 TYSON DO, MARINA Ot M47.9 SPONDYLOSIS, UNSPECIFIED 01/31/2016 TYSON DO, MARINA Ot R91.8 OTHER NONSPECIFIC ABNORMAL FINDING OF NILS 01/31/2016 TYSON DO, MARINA Ot Z87.891 PERSONAL HISTORY OF NICOTINE DEPENDENCE 02/16/2016 MENDY VAZQUEZ, ROEL Smyth Ot C34.31 MALIGNANT NEOPLASM OF LOWER LOBE, RIGHT 02/16/2016 CHUN SALAMANCA Ot E66.9 OBESITY, UNSPECIFIED 02/16/2016 CHUN SALAMANCA Ot E78.2 MIXED HYPERLIPIDEMIA 02/16/2016 CHUN SALAMANCA Ot I10 ESSENTIAL (PRIMARY) HYPERTENSION 02/16/2016 CHUN SALAMANCA Ot R06.00 DYSPNEA, UNSPECIFIED 02/16/2016 CHUN SALAMANCA Ot R91.8 OTHER NONSPECIFIC ABNORMAL FINDING OF NILS 02/20/2016 MENDY VAZQUEZ, ROEL Smyth Ot C34.31 MALIGNANT NEOPLASM OF LOWER LOBE, RIGHT 03/01/2016 MENDY VAZQUEZ, ROEL Smyth Ot C34.31 MALIGNANT NEOPLASM OF LOWER LOBE, RIGHT 03/01/2016 CHUN SALAMANCA Ot E66.9 OBESITY, UNSPECIFIED 03/01/2016 CHUN SALAMANCA Ot E78.2 MIXED HYPERLIPIDEMIA 03/01/2016 CHUN SALAMANCA Ot I10 ESSENTIAL (PRIMARY) HYPERTENSION 03/01/2016 CHUN SALAMANCA Ot R06.00 DYSPNEA, UNSPECIFIED 03/01/2016 CHUN SALAMANCA Ot R91.8 OTHER NONSPECIFIC ABNORMAL FINDING OF NILS 03/11/2016 SPARKLE, CLOTILDE N Ot C34.31 MALIGNANT NEOPLASM OF LOWER LOBE, RIGHT 03/11/2016 SPARKLE CLOTILDE Mckeon Ot 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 03/11/2016 SPARKLE, CLOTILDE N Ot E78.00 PURE HYPERCHOLESTEROLEMIA, UNSPECIFIED 03/11/2016 SPARKLE CLOTILDE N Ot I10 ESSENTIAL (PRIMARY) HYPERTENSION 03/11/2016 SPARKLE CLOTILDE N Ot M15.9 POLYOSTEOARTHRITIS, UNSPECIFIED 03/11/2016 SPARKLE CLOTILDE N Ot Z79.8[address] VENDOR (CURRENT) DRUG THERAPY 03/11/2016 SPARKLE, CLOTILDE N Ot Z87.891 PERSONAL HISTORY OF NICOTINE DEPENDENCE 04/14/2016 SPARKLE CLOTILDE N Ot C34.31 MALIGNANT NEOPLASM OF LOWER LOBE, RIGHT 04/14/2016 SPARKLE CLOTILDE N Ot 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 04/14/2016 SPARKLE NICANORMATT N Ot E78.00 PURE HYPERCHOLESTEROLEMIA, UNSPECIFIED 04/14/2016 SPARKLE BOBAN N Ot I10 ESSENTIAL (PRIMARY) HYPERTENSION 04/14/2016 SPARKLE CLOTILDE N Ot M15.9 POLYOSTEOARTHRITIS, UNSPECIFIED 04/14/2016 SPARKLE NICANORAN N Ot Z79.899 OTHER SENIOR LIVING (CURRENT) DRUG THERAPY 04/14/2016 SPARKLE BOBAN N Ot Z87.891 PERSONAL HISTORY OF NICOTINE DEPENDENCE 05/13/2016 SPARKLE CLOTILDE N Ot C34.31 MALIGNANT NEOPLASM OF LOWER LOBE, RIGHT 05/13/2016 SPARKLE CLOTILDE N Ot 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 05/13/2016 SPARKLE BOBAN N Ot E78.00 PURE HYPERCHOLESTEROLEMIA, UNSPECIFIED 05/13/2016 SPARKLE BOBAN N Ot I10 ESSENTIAL (PRIMARY) HYPERTENSION 05/13/2016 SPARKLE BOBAN N Ot M15.9 POLYOSTEOARTHRITIS, UNSPECIFIED 05/13/2016 CLOTILDE VILLAGRAN Linda Ot Z79.899 OTHER SENIOR LIVING (CURRENT) DRUG THERAPY 05/13/2016 SPARKLE NICANORMATT Linda Ot Z87.891 PERSONAL HISTORY OF NICOTINE DEPENDENCE 05/19/2016 SPARKLE NICANORMATT Linda Ot C34.31 MALIGNANT NEOPLASM OF LOWER LOBE, RIGHT 05/19/2016 SPARKLE NICANORMATT Linda Ot 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 05/19/2016 SPARKLE NICANORMATT Linda Ot E78.00 PURE HYPERCHOLESTEROLEMIA, UNSPECIFIED 05/19/2016 SPARKLE CLOTILDE Mckeon Ot I10 ESSENTIAL (PRIMARY) HYPERTENSION 05/19/2016 SPARKLE NICANORMATT Linda Ot M15.9 POLYOSTEOARTHRITIS, UNSPECIFIED 05/19/2016 SPARKLE CLOTILDE Mckeon Ot Z79.[address] VENDOR (CURRENT) DRUG THERAPY 05/19/2016 SPARKLE NICANORMATT Linda Ot Z87.891 PERSONAL HISTORY OF NICOTINE DEPENDENCE 06/02/2016 SPARKLE NICANORMATT Linda Ot C34.90 MALIGNANT NEOPLASM OF UNSP PART OF UNSP 06/02/2016 SPARKLE NICANORMATT Linda Ot Z01.89 ENCOUNTER FOR OTHER SPECIFIED SPECIAL EX 06/02/2016 SPARKLE NICANORMATT Linda Ot C34.90 MALIGNANT NEOPLASM OF UNSP PART OF UNSP 06/02/2016 SPARKLE CLOTILDE Mckeon Ot Z01.89 ENCOUNTER FOR OTHER SPECIFIED SPECIAL EX 06/03/2016 SPARKLE CLOTILDE Mckeon Ot C34.31 MALIGNANT NEOPLASM OF LOWER LOBE, RIGHT 06/03/2016 SPARKLE NICANORMATT Linda Ot 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 06/03/2016 SPARKLE NICANORMATT Linda Ot E78.00 PURE HYPERCHOLESTEROLEMIA, UNSPECIFIED 06/03/2016 SPARKLE CLOTILDE Mckeon Ot I10 ESSENTIAL (PRIMARY) HYPERTENSION 06/03/2016 SPARKLE CLOTILDE Mckeon Ot M15.9 POLYOSTEOARTHRITIS, UNSPECIFIED 06/03/2016 SPARKLECLOTILDE Ot Z51.11 ENCOUNTER FOR ANTINEOPLASTIC CHEMOTHERAP 06/03/2016 SPARKLE CLOTILDE N Ot Z79.899 OTHER SENIOR LIVING (CURRENT) DRUG THERAPY 06/03/2016 SPARKLE CLOTILDE N Ot Z87.891 PERSONAL HISTORY OF NICOTINE DEPENDENCE 06/04/2016 SPARKLE CLOTILDE Mckeon Ot C34.31 MALIGNANT NEOPLASM OF LOWER LOBE, RIGHT 06/04/2016 CLOTILDE VILLAGRAN iLnda Ot 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 06/04/2016 CLOTILDE VILLAGRAN Linda Ot E78.00 PURE HYPERCHOLESTEROLEMIA, UNSPECIFIED 06/04/2016 CLOTILDE VILLAGRAN Linda Ot I10 ESSENTIAL (PRIMARY) HYPERTENSION 06/04/2016 CLOTILDE VILLAGRAN Linda Ot M15.9 POLYOSTEOARTHRITIS, UNSPECIFIED 06/04/2016 CLOTILDE VILLAGRAN Linda Ot Z51.11 ENCOUNTER FOR ANTINEOPLASTIC CHEMOTHERAP 06/04/2016 CLOTILDE VILLAGRAN Linda Ot Z79.899 OTHER SENIOR LIVING (CURRENT) DRUG THERAPY 06/04/2016 CLOTILDE VILLAGRAN Linda Ot Z87.891 PERSONAL HISTORY OF NICOTINE DEPENDENCE 06/08/2016 SPARKLE CLOTILDE Mckeon Ot C34.31 MALIGNANT NEOPLASM OF LOWER LOBE, RIGHT 06/08/2016 SPARKLE NICANORMATT Linda Ot Z01.89 ENCOUNTER FOR OTHER SPECIFIED SPECIAL EX 06/16/2016 MENDY VAZQUEZ, ROEL S Ot C34.31 MALIGNANT NEOPLASM OF LOWER LOBE, RIGHT 06/16/2016 MENDY VAZQUEZ, ROEL S Ot J44.9 CHRONIC OBSTRUCTIVE PULMONARY DISEASE, U 06/18/2016 SPARKLE CLOTILDE N Ot C34.31 MALIGNANT NEOPLASM OF LOWER LOBE, RIGHT 06/18/2016 SPARKLE CLOTILDE N Ot Z01.89 ENCOUNTER FOR OTHER SPECIFIED SPECIAL EX 06/30/2016 MENDY VAZQUEZ, ROEL S Ot C34.31 MALIGNANT NEOPLASM OF LOWER LOBE, RIGHT 06/30/2016 MENDY VAZQUEZ, ROEL S Ot J44.9 CHRONIC OBSTRUCTIVE PULMONARY DISEASE, U 07/02/2016 SPARKLE CLOTILDE Mckeon Ot C34.31 MALIGNANT NEOPLASM OF LOWER LOBE, RIGHT 07/02/2016 SPARKLE NICANORMATT N Ot Z01.89 ENCOUNTER FOR OTHER SPECIFIED SPECIAL EX 07/15/2016 CLOTILDE VILLAGRAN N Ot C34.31 MALIGNANT NEOPLASM OF LOWER LOBE, RIGHT 07/15/2016 SPARKLE NICANORMATT Linda Ot 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 07/15/2016 CLOTILDE VILLAGRAN Linda Ot E78.00 PURE HYPERCHOLESTEROLEMIA, UNSPECIFIED 07/15/2016 SPARKLE NICANORMATT N Ot I10 ESSENTIAL (PRIMARY) HYPERTENSION 07/15/2016 SPARKLE NICANORMATT Linda Ot M15.9 POLYOSTEOARTHRITIS, UNSPECIFIED 07/15/2016 CLOTILDE VILLAGRAN N Ot Z79.899 OTHER SENIOR LIVING (CURRENT) DRUG THERAPY 07/15/2016 CLOTILDE VILLAGRAN N Ot Z87.891 PERSONAL HISTORY OF NICOTINE DEPENDENCE 07/19/2016 MENDY VAZQUEZ, ROEL Smyth Ot C34.31 MALIGNANT NEOPLASM OF LOWER LOBE, RIGHT 07/27/2016 SPARKLECLOTILDE SEVILLA N Ot C34.31 MALIGNANT NEOPLASM OF LOWER LOBE, RIGHT 07/27/2016 CLOTILDE VILLAGRAN N Ot 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 07/27/2016 SPARKLECLOTILDE SEVILLA N Ot E78.00 PURE HYPERCHOLESTEROLEMIA, UNSPECIFIED 07/27/2016 SPARKLE BOBMATT N Ot I10 ESSENTIAL (PRIMARY) HYPERTENSION 07/27/2016 CLOTILDE VILLAGRAN N Ot M15.9 POLYOSTEOARTHRITIS, UNSPECIFIED 07/27/2016 CLOTILDE VILLAGRAN N Ot Z79.899 OTHER SENIOR LIVING (CURRENT) DRUG THERAPY 07/27/2016 CLOTILDE VILLAGRAN N Ot Z87.891 PERSONAL HISTORY OF NICOTINE DEPENDENCE 08/19/2016 CLOTILDE VILLAGRAN N Ot C34.31 MALIGNANT NEOPLASM OF LOWER LOBE, RIGHT 08/19/2016 SPARKLECLOTILDE SEVILLA N Ot 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 08/19/2016 SPARKLECLOTILDE SEVILLA N Ot E78.00 PURE HYPERCHOLESTEROLEMIA, UNSPECIFIED 08/19/2016 SPARKLE BOBMATT N Ot I10 ESSENTIAL (PRIMARY) HYPERTENSION 08/19/2016 CLOTILDE VILLAGRAN N Ot M15.9 POLYOSTEOARTHRITIS, UNSPECIFIED 08/19/2016 CLOTILDE VILLAGRAN N Ot Z79.[address] VENDOR (CURRENT) DRUG THERAPY 08/19/2016 CLOTILDE VILLAGRAN N Ot Z87.891 PERSONAL HISTORY OF NICOTINE DEPENDENCE 08/22/2016 CLOTILDE VILLAGRAN N Ot C34.31 MALIGNANT NEOPLASM OF LOWER LOBE, RIGHT 08/22/2016 CLOTILDE VILLAGRAN N Ot 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 08/22/2016 SPARKLE, BOBMATT N Ot E78.00 PURE HYPERCHOLESTEROLEMIA, UNSPECIFIED 08/22/2016 SPARKLE BOBAN N Ot I10 ESSENTIAL (PRIMARY) HYPERTENSION 08/22/2016 SPARKLE BOBMATT N Ot M15.9 POLYOSTEOARTHRITIS, UNSPECIFIED 08/22/2016 CLOTILDE VILLAGRAN N Ot Z79.[address] VENDOR (CURRENT) DRUG THERAPY 08/22/2016 CLOTILDE VILLAGRAN N Ot Z87.891 PERSONAL HISTORY OF NICOTINE DEPENDENCE 08/22/2016 CLOTILDE VILLAGRAN N Ot C34.31 MALIGNANT NEOPLASM OF LOWER LOBE, RIGHT 08/22/2016 CLOTILDE VILLAGRAN N Ot 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 08/22/2016 CLOTILDE VILLAGRAN N Ot E78.00 PURE HYPERCHOLESTEROLEMIA, UNSPECIFIED 08/22/2016 SPARKLECLOTILDE SEVILLA N Ot I10 ESSENTIAL (PRIMARY) HYPERTENSION 08/22/2016 SPARKLECLOTILDE SEVILLA N Ot M15.9 POLYOSTEOARTHRITIS, UNSPECIFIED 08/22/2016 CLOTILDE VILLAGRAN N Ot Z79.[address] VENDOR (CURRENT) DRUG THERAPY 08/22/2016 CLOTILDE VILLAGRAN N Ot Z87.891 PERSONAL HISTORY OF NICOTINE DEPENDENCE 08/22/2016 CLOTILDE VILLAGRAN N Ot C34.31 MALIGNANT NEOPLASM OF LOWER LOBE, RIGHT 08/22/2016 CLOTILDE VILLAGRAN N Ot 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 08/22/2016 CLOTILDE VILLAGRAN N Ot E78.00 PURE HYPERCHOLESTEROLEMIA, UNSPECIFIED 08/22/2016 SPARKLECLOTILDE SEVILLA N Ot I10 ESSENTIAL (PRIMARY) HYPERTENSION 08/22/2016 CLOTILDE VILLAGRAN N Ot M15.9 POLYOSTEOARTHRITIS, UNSPECIFIED 08/22/2016 CLOTILDE VILLAGRAN N Ot Z79.899 OTHER SENIOR LIVING (CURRENT) DRUG THERAPY 08/22/2016 CLOTILDE VILLAGRAN N Ot Z87.891 PERSONAL HISTORY OF NICOTINE DEPENDENCE 09/09/2016 CLOTILDE VILLAGRAN N Ot C34.31 MALIGNANT NEOPLASM OF LOWER LOBE, RIGHT 09/09/2016 CLOTILDE VILLAGRAN N Ot 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 09/09/2016 SPARKLECLOTILDE SEVILLA N Ot E78.00 PURE HYPERCHOLESTEROLEMIA, UNSPECIFIED 09/09/2016 SPARKLECLOTILDE N Ot I10 ESSENTIAL (PRIMARY) HYPERTENSION 09/09/2016 CLOTILDE VILLAGRAN N Ot M15.9 POLYOSTEOARTHRITIS, UNSPECIFIED 09/09/2016 SPARKLECLOTILDE SEVILLA N Ot Z79.[address] VENDOR (CURRENT) DRUG THERAPY 09/09/2016 CLOTILDE VILLAGRAN Ot Z87.891 PERSONAL HISTORY OF NICOTINE DEPENDENCE 09/15/2016 CLOTILDE VILLAGRAN Ot C34.31 MALIGNANT NEOPLASM OF LOWER LOBE, RIGHT 09/15/2016 CLOTILDE VILLAGRAN Ot 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 09/15/2016 CLOTILDE VILLAGRAN Ot E78.00 PURE HYPERCHOLESTEROLEMIA, UNSPECIFIED 09/15/2016 CLOTILDE VILLAGRAN Ot I10 ESSENTIAL (PRIMARY) HYPERTENSION 09/15/2016 CLOTILDE VILLAGRAN Ot M15.9 POLYOSTEOARTHRITIS, UNSPECIFIED 09/15/2016 CLOTILDE VILLAGRAN Ot Z79.899 OTHER SENIOR LIVING (CURRENT) DRUG THERAPY 09/15/2016 CLOTILDE VILLAGRAN Ot Z87.891 PERSONAL HISTORY OF NICOTINE DEPENDENCE Procedures Code Description Performed By Performed On [id number] 06/25/2015 [id number] 01/29/2016 Results Test Result Range [id number] - 01/09/16 11:17 Serum or plasma urea nitrogen measurement (mass/volume) 17 mg/dL 7-18 Serum or plasma creatinine measurement (mass/volume) 0.89 mg /dL 0.60-1.30 Serum or plasma urea nitrogen/creatinine mass ratio 19 NRG Serum or plasma creatinine measurement with calculation of estimated glomerular filtration rate > NRG Complete blood count (CBC) with automated white blood cell (WBC) differential - 01/29/16 08:35 Blood leukocytes automated count (number/volume) 7.6 10*3/ uL 4.3-11.0 Blood erythrocytes automated count (number/volume) 4.60 10*6 /uL 4.35-5.85 Venous blood hemoglobin measurement (mass/volume) 14.2 g/dL 13.3-17.7 Blood hematocrit (volume fraction) 42 % 40-54 Automated erythrocyte mean corpuscular volume 90 [foz_us] 80-99 Automated erythrocyte mean corpuscular hemoglobin (mass per erythrocyte) 31 pg 25-34 Automated erythrocyte mean corpuscular hemoglobin concentration measurement ( mass/volume) 34 g/dL 32-36 Automated erythrocyte distribution width ratio 12.4 % 10.0-14.5 Automated blood platelet count (count/volume) 250 10*3/uL 130-400 Automated blood platelet mean volume measurement 10.3 [foz_ us] 7.4-10.4 Automated blood neutrophils/100 leukocytes 69 % 42-75 Automated blood lymphocytes/100 leukocytes 18 % 12-44 Blood monocytes/100 leukocytes 10 % 0-12 Automated blood eosinophils/100 leukocytes 3 % 0-10 Automated blood basophils/100 leukocytes 1 % 0-10 Blood neutrophils automated count (number/volume) 5.3 10*3 1.8-7.8 Blood lymphocytes automated count (number/volume) 1.4 10*3 1.0-4.0 Blood monocytes automated count (number/volume) 0.7 10*3 0.0-1.0 Automated eosinophil count 0.2 10*3/uL 0.0-0.3 Automated blood basophil count (count/volume) 0.0 10*3/uL 0.0-0.1 PT panel in platelet poor plasma by coagulation assay - 01/29/16 08:35 Prothrombin time (PT) in platelet poor plasma by coagulation assay 12.3 s 12.2-14.7 INR in platelet poor plasma or blood by coagulation assay 0.9 0.8-1.4 Activated partial thromboplastin time (aPTT) in platelet poor plasma bycoagulation assay - 01/29/16 08:35 Activated partial thromboplastin time (aPTT) in platelet poor plasma bycoagulation assay 28 s 24-35 Complete blood count (CBC) with automated white blood cell (WBC) differential - 01/29/16 15:15 Blood leukocytes automated count (number/volume) 13.1 10*3/ uL 4.3-11.0 Blood erythrocytes automated count (number/volume) 4.54 10*6 /uL 4.35-5.85 Venous blood hemoglobin measurement (mass/volume) 14.0 g/dL 13.3-17.7 Blood hematocrit (volume fraction) 41 % 40-54 Automated erythrocyte mean corpuscular volume 90 [foz_us] 80-99 Automated erythrocyte mean corpuscular hemoglobin (mass per erythrocyte) 31 pg 25-34 Automated erythrocyte mean corpuscular hemoglobin concentration measurement ( mass/volume) 34 g/dL 32-36 Automated erythrocyte distribution width ratio 12.3 % 10.0-14.5 Automated blood platelet count (count/volume) 225 10*3/uL 130-400 Automated blood platelet mean volume measurement 10.6 [foz_ us] 7.4-10.4 Automated blood neutrophils/100 leukocytes 78 % 42-75 Automated blood lymphocytes/100 leukocytes 12 % 12-44 Blood monocytes/100 leukocytes 9 % 0-12 Automated blood eosinophils/100 leukocytes 2 % 0-10 Automated blood basophils/100 leukocytes 0 % 0-10 Blood neutrophils automated count (number/volume) 10.1 10*3 1.8-7.8 Blood lymphocytes automated count (number/volume) 1.5 10*3 1.0-4.0 Blood monocytes automated count (number/volume) 1.2 10*3 0.0-1.0 Automated eosinophil count 0.2 10*3/uL 0.0-0.3 Automated blood basophil count (count/volume) 0.0 10*3/uL 0.0-0.1 Whole blood basic metabolic panel - 01/29/16 15:15 Serum or plasma sodium measurement (moles/volume) 141 mmol/ L 135-145 Serum or plasma potassium measurement (moles/volume) 3.9 mmol/L 3.6-5.0 Serum or plasma chloride measurement (moles/volume) 110 mmol /L 98-107 Carbon dioxide 26 mmol/L 21-32 Serum or plasma anion gap determination (moles/volume) 5 mmol/L 5-14 Serum or plasma urea nitrogen measurement (mass/volume) 20 mg/dL 7-18 Serum or plasma creatinine measurement (mass/volume) 0.80 mg /dL 0.60-1.30 Serum or plasma urea nitrogen/creatinine mass ratio 25 NRG Serum or plasma creatinine measurement with calculation of estimated glomerular filtration rate > NRG Serum or plasma glucose measurement (mass/volume) 97 mg/dL 70-105 Serum or plasma calcium measurement (mass/volume) 8.8 mg/dL 8.5-10.1 Serum or plasma phosphate measurement (mass/volume) - 01/29/16 15:15 Serum or plasma phosphate measurement (mass/volume) 3.5 mg/ dL 2.3-4.7 Magnesium - 01/29/16 15:15 Magnesium 2.1 mg/dL 1.8-2.4 Blood CBC with ordered manual differential panel - 01/30/16 14:10 Blood leukocytes automated count (number/volume) 8.6 10*3/ uL 4.3-11.0 Blood erythrocytes automated count (number/volume) 4.28 10*6 /uL 4.35-5.85 Venous blood hemoglobin measurement (mass/volume) 13.2 g/dL 13.3-17.7 Blood hematocrit (volume fraction) 39 % 40-54 Automated erythrocyte mean corpuscular volume 90 [foz_us] 80-99 Automated erythrocyte mean corpuscular hemoglobin (mass per erythrocyte) 31 pg 25-34 Automated erythrocyte mean corpuscular hemoglobin concentration measurement ( mass/volume) 34 g/dL 32-36 Automated erythrocyte distribution width ratio 12.4 % 10.0-14.5 Automated blood platelet count (count/volume) 229 10*3/uL 130-400 Automated blood platelet mean volume measurement 10.0 [foz_ us] 7.4-10.4 Automated blood neutrophils/100 leukocytes 75 % 42-75 Automated blood lymphocytes/100 leukocytes 15 % 12-44 Blood monocytes/100 leukocytes 11 % NRG Automated blood eosinophils/100 leukocytes 1 % 0-10 Automated blood basophils/100 leukocytes 0 % 0-10 Blood neutrophils automated count (number/volume) 6.4 10*3 1.8-7.8 Blood lymphocytes automated count (number/volume) 1.3 10*3 1.0-4.0 Blood monocytes automated count (number/volume) 0.8 10*3 0.0-1.0 Automated eosinophil count 0.1 10*3/uL 0.0-0.3 Automated blood basophil count (count/volume) 0.0 10*3/uL 0.0-0.1 Manual blood segmented neutrophils/100 leukocytes 61 % NRG Blood band neutrophils/100 leukocytes 0 % NRG Manual blood lymphocytes/100 leukocytes 23 % NRG Manual eosinophils/100 leukocytes in nose 5 % NRG Manual blood basophils/100 leukocytes 0 % NRG Blood erythrocyte morphology finding identification NORMAL NRG Complete blood count (CBC) with automated white blood cell (WBC) differential - 10/07/16 13:35 Blood leukocytes automated count (number/volume) 3.0 10*3/ uL 4.3-11.0 Blood erythrocytes automated count (number/volume) 3.91 10*6 /uL 4.35-5.85 Venous blood hemoglobin measurement (mass/volume) 12.0 g/dL 13.3-17.7 Blood hematocrit (volume fraction) 36 % 40-54 Automated erythrocyte mean corpuscular volume 91 [foz_us] 80-99 Automated erythrocyte mean corpuscular hemoglobin (mass per erythrocyte) 31 pg 25-34 Automated erythrocyte mean corpuscular hemoglobin concentration measurement ( mass/volume) 34 g/dL 32-36 Automated erythrocyte distribution width ratio 14.6 % 10.0-14.5 Automated blood platelet count (count/volume) 186 10*3/uL 130-400 Automated blood platelet mean volume measurement 9.5 [foz_us ] 7.4-10.4 Automated blood neutrophils/100 leukocytes 77 % 42-75 Automated blood lymphocytes/100 leukocytes 8 % 12-44 Blood monocytes/100 leukocytes 12 % 0-12 Automated blood eosinophils/100 leukocytes 1 % 0-10 Automated blood basophils/100 leukocytes 2 % 0-10 Blood neutrophils automated count (number/volume) 2.3 10*3 1.8-7.8 Blood lymphocytes automated count (number/volume) 0.2 10*3 1.0-4.0 Blood monocytes automated count (number/volume) 0.4 10*3 0.0-1.0 Automated eosinophil count 0.0 10*3/uL 0.0-0.3 Automated blood basophil count (count/volume) 0.1 10*3/uL 0.0-0.1 PT panel in platelet poor plasma by coagulation assay - 10/07/16 13:35 Prothrombin time (PT) in platelet poor plasma by coagulation assay 12.5 s 12.2-14.7 INR in platelet poor plasma or blood by coagulation assay 1.0 0.8-1.4 Activated partial thromboplastin time (aPTT) in platelet poor plasma bycoagulation assay - 10/07/16 13:35 Activated partial thromboplastin time (aPTT) in platelet poor plasma bycoagulation assay 29 s 24-35 Blood lactic acid measurement (moles/volume) - 10/07/16 13:35 Blood lactic acid measurement (moles/volume) 1.28 mmol/L 0.50-2.00 Comprehensive metabolic panel - 10/07/16 13:35 Serum or plasma sodium measurement (moles/volume) 139 mmol/ L 135-145 Serum or plasma potassium measurement (moles/volume) 4.3 mmol/L 3.6-5.0 Serum or plasma chloride measurement (moles/volume) 104 mmol /L 98-107 Carbon dioxide 24 mmol/L 21-32 Serum or plasma anion gap determination (moles/volume) 11 mmol/L 5-14 Serum or plasma urea nitrogen measurement (mass/volume) 22 mg/dL 7-18 Serum or plasma creatinine measurement (mass/volume) 0.94 mg /dL 0.60-1.30 Serum or plasma urea nitrogen/creatinine mass ratio 23 NRG Serum or plasma creatinine measurement with calculation of estimated glomerular filtration rate > NRG Serum or plasma glucose measurement (mass/volume) 127 mg/dL 70-105 Serum or plasma calcium measurement (mass/volume) 9.8 mg/dL 8.5-10.1 Serum or plasma total bilirubin measurement (mass/volume) 0.4 mg/dL 0.1-1.0 Serum or plasma alkaline phosphatase measurement (enzymatic activity/volume) 172 U/L 40-136 Serum or plasma aspartate aminotransferase measurement (enzymatic activity/ volume) 48 U/L 5-34 Serum or plasma alanine aminotransferase measurement (enzymatic activity/volume ) 69 U/L 0-55 Serum or plasma protein measurement (mass/volume) 7.4 g/dL 6.4-8.2 Serum or plasma albumin measurement (mass/volume) 4.0 g/dL 3.2-4.5 Magnesium - 10/07/16 13:35 Magnesium 1.7 mg/dL 1.8-2.4 Serum or plasma troponin i.cardiac measurement (mass/volume) - 10/07/16 13:35 Serum or plasma troponin i.cardiac measurement (mass/volume) < ng/mL <0.30 Serum or plasma C reactive protein measurement (mass/volume) - 10/07/16 13:35 Serum or plasma C reactive protein measurement (mass/volume) 13.16 mg/dL 0.00-0.50 Bacterial blood culture - 10/07/16 13:35 Bacterial blood culture NG NRG Bacterial blood culture - 10/07/16 14:03 Bacterial blood culture NG NRG Complete urinalysis with reflex to culture - 10/07/16 17:00 Urine color determination YELLOW NRG Urine clarity determination CLEAR NRG Urine pH measurement by test strip 7 5- 9 Specific gravity of urine by test strip 1.005 1.016-1.022 Urine protein assay by test strip, semi-quantitative 1+ NEGATIVE Urine glucose detection by automated test strip NEGATIVE NEGATIVE Erythrocytes detection in urine sediment by light microscopy NEGATIVE NEGATIVE Urine ketones detection by automated test strip NEGATIVE NEGATIVE Urine nitrite detection by test strip NEGATIVE NEGATIVE Urine total bilirubin detection by test strip NEGATIVE NEGATIVE Urine urobilinogen measurement by automated test strip (mass/volume) 1 mg/dL NORMAL Urine leukocyte esterase detection by dipstick NEGATIVE NEGATIVE Automated urine sediment erythrocyte count by microscopy (number/high power field) NONE NRG Automated urine sediment leukocyte count by microscopy (number/high power field ) [HPF] NRG Bacteria detection in urine sediment by light microscopy NEGATIVE NRG Crystals detection in urine sediment by light microscopy NONE NRG Casts detection in urine sediment by light microscopy NONE NRG Mucus detection in urine sediment by light microscopy NEGATIVE NRG Complete urinalysis with reflex to culture NO NRG Encounters ACCT No. Visit Date/Time Discharge Status Pt. Type Provider Facility Loc./Unit Complaint [id number] 10/07/2016 13:26:00 2016 18:25:[address] MD [facility] ER CHILLS/SWEATS/CHEST PAIN/SOB/ N/V [id number] 06/03/2016 10:20:00 2016 00:01:00 DIS Outpatient CLOTILDE VILLAGRAN [facility] ONC [id number] 01/29/2016 13:31:00 2015 15:20:00 DIS Inpatient MARINA TYSON DO [facility] 4TH PNEUMOTHORAX POST BX [id number] 06/25/2015 05:57:00 2015 09:20:00 DIS Inpatient JEREMY GUY MD [facility] 4TH LEFT KNEE OSTEOARTHRITIS [id number] 06/11/2015 08:09:00 2015 09:30:00 DIS Outpatient JEREMY GUY MD [facility] PREOP LEFT KNEE OSTEOARTHRITIS [id number] 09/29/2016 09:51:00 ACT Outpatient CLOTILDE VILLAGRAN [facility] ONC [id number] 07/02/2016 13:33:00 ACT Outpatient ROEL BROOKE MD [facility] CARD 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 [id number] 06/09/2016 09:32:00 ACT Outpatient ROEL BROOKE MD [facility] RT LUNG CANCER,COPD [id number] 06/01/2016 09:30:00 PEN Preadmit JOIE PÉREZ [facility] RAD HEADACHE,LUNG CANCER [id number] 06/01/2016 07:54:00 ACT Outpatient CLOTILDE VILLAGRAN [facility] RAD Z01.89,C34.90 [id number] 02/13/2016 14:33:00 ACT Outpatient CHUN WOOD [facility] CARD DYSPNEA [id number] 02/13/2016 11:06:00 ACT Outpatient MENDY VAZQUEZ, ROEL Smyth [facility] RAD PRIMARY MALIGNANT NEOPLASM BRONCHUS RT LOWER LOBE [id number] 01/20/2016 10:13:00 ACT Outpatient BRITTANY LANIER DO [facility] RAD OBESITY,DYSPNEA,PULMONARY MASS [id number] 01/09/2016 11:09:00 ACT Outpatient DAKOTA EVERETT MD [facility] RAD RT LUNG MASS [id number] 01/05/2016 12:25:00 ACT Outpatient DAKOTA EVERETT MD [facility] RAD SCOLIOSIS
== END 2016-10-07 18:25 | disposition home or self-care (01) ==
LOC: EDUNIT# 13:24 → ER 13:26
DX: J18.1 Lobar pneumonia, unspecified organism (principal); E86.1 Hypovolemia; R11.2 Nausea with vomiting, unspecified; F32.9 Major depressive disorder, single episode, unspecified; M19.90 Unspecified osteoarthritis, unspecified site; K21.9 Gastro-esophageal reflux disease without esophagitis; I10 Essential (primary) hypertension; Z90.2 Acquired absence of lung [part of]; Z85.828 Personal history of other malignant neoplasm of skin; Z85.118 Personal history of other malignant neoplasm of bronchus and lung; Z87.891 Personal history of nicotine dependence; Z79.82 Long term (current) use of aspirin
CPT/HCPCS: 36415; 71020; 71275; 80053; 81000; 83605; 83735; 84484; 85025; 85610; 85730; 86141; 87040; 93005; 96361; 96365; 96375; 96376

== ENCOUNTER → 2016-11-10 | Outpatient (CLI) | payer BC, MEDICARE ==
[~2016-11-10] MED LIST changes: +CATHETER FLUSH 10 ML SYR IV PRN; +IOHEXOL 350 MG/ML 100 ML (OMNIPAQUE 350) VIAL IV ONE; +LEVO750T9 PO; +ONDA4TAB8 SL
--- NOTE | 2016-11-10 14:32 | Diagnostic Imaging Report ---
PROCEDURE: CT chest with contrast only. TECHNIQUE: Multiple contiguous axial images were obtained through the chest after administration of intravenous contrast. INDICATION: Lung cancer. 75 mL of Omnipaque 350 was administered intravenously. FINDINGS: There is a slightly increased patchy area of consolidation in the right lower lobe with dilation of the adjacent the bronchioles with similar from findings also along the posterior aspect of the right upper lobe and superior segment of the right lower lobe. The findings are favored to be related to developing fibrotic changes. There is no definite mass or suspicious nodule seen. The findings are perhaps secondary to radiation changes. There is a small amount of loculated pleural fluid adjacent to the patchy consolidation described. There is decreased right lung volume with elevation of the right hemidiaphragm. This is similar to 10/07/2016. There are upper lobe predominant emphysema changes. There is no definite new suspicious nodule seen. The mediastinum demonstrate no mass or significantly enlarged lymph nodes. Postsurgical changes and clips are from seen in the right infrahilar region. No axillary lymphadenopathy. There is no pericardial effusion. The heart size is within normal limits. There is deviation of the mediastinum and heart to the right. Sections in the upper abdomen appear grossly unremarkable. The osseous fractures demonstrate the right convexity scoliosis and degenerative changes. IMPRESSION: 1. There are postsurgical changes in the lower right lung and increasing patchy consolidation in the posterior perihilar region in the right lung which appears to be related to fibrotic changes. No discrete suspicious nodule is seen. Continued followup recommended. 2. Background emphysema. Dictated by: Dictated on workstation # [id number]
== END ==
LOC: RAD 10:19
PROVIDERS: ATTEND Internal Medicine Hematology & Oncology
DX: J43.9 Emphysema, unspecified (principal); Z98.890 Other specified postprocedural states; C34.31 Malignant neoplasm of lower lobe, right bronchus or lung
CPT/HCPCS: 71260

== ENCOUNTER 2016-11-23 15:30 | Outpatient (RCR) | payer BC, MEDICARE ==
[2016-10-25 10:31] LABS: BASOPHILS % (AUTO) 1 % (0-10); EOSINOPHILS # (AUTO) 0.3 10^3/uL (0.0-0.3); EOSINOPHILS % (AUTO) 6 % (0-10); LYMPHOCYTES # (AUTO) 0.6 X 10^3 (1.0-4.0); LYMPHOCYTES % (AUTO) 11 % (12-44); MEAN CORPUSCULAR HEMOGLOBIN 31 PG (25-34); MEAN CORPUSCULAR HGB CONC 33 G/DL (32-36); MEAN CORPUSCULAR VOLUME 94 FL (80-99); MEAN PLATELET VOLUME 8.5 FL (7.4-10.4); MONOCYTES # (AUTO) 0.9 X 10^3 (0.0-1.0); MONOCYTES % (AUTO) 15 % (0-12); NEUTROPHILS # (AUTO) 3.9 X 10^3 (1.8-7.8); NEUTROPHILS % (AUTO) 68 % (42-75); PLATELET COUNT 319 10^3/uL (130-400); RED BLOOD COUNT 3.69 10^6/uL (4.35-5.85); RED CELL DISTRIBUTION WIDTH 15.2 % (10.0-14.5); WHITE BLOOD COUNT 5.8 10^3/uL (4.3-11.0)
[2016-10-25 11:01] LABS: ALANINE AMINOTRANSFERASE 27 U/L (0-55); ALBUMIN 3.7 GM/DL (3.2-4.5); ANION GAP 8 MMOL/L (5-14); ASPARTATE AMINO TRANSFERASE 25 U/L (5-34); BILIRUBIN,TOTAL 0.3 MG/DL (0.1-1.0); BLOOD UREA NITROGEN 23 MG/DL (7-18); BUN/CREATININE RATIO 26; CALCIUM 9.3 MG/DL (8.5-10.1); CARBON DIOXIDE 28 MMOL/L (21-32); CHLORIDE 103 MMOL/L (98-107); GFR ESTIMATED > 60; GLUCOSE 110 MG/DL (70-105); MAGNESIUM 1.9 MG/DL (1.8-2.4); POTASSIUM 4.7 MMOL/L (3.6-5.0); SODIUM 139 MMOL/L (135-145); TOTAL PROTEIN 6.8 GM/DL (6.4-8.2)
[2016-11-10 11:12] LABS: BASOPHILS % (AUTO) 0 % (0-10); EOSINOPHILS # (AUTO) 0.1 10^3/uL (0.0-0.3); EOSINOPHILS % (AUTO) 0 % (0-10); LYMPHOCYTES # (AUTO) 0.3 X 10^3 (1.0-4.0); LYMPHOCYTES % (AUTO) 2 % (12-44); MEAN CORPUSCULAR HEMOGLOBIN 31 PG (25-34); MEAN CORPUSCULAR HGB CONC 33 G/DL (32-36); MEAN CORPUSCULAR VOLUME 94 FL (80-99); MONOCYTES # (AUTO) 0.6 X 10^3 (0.0-1.0); MONOCYTES % (AUTO) 4 % (0-12); NEUTROPHILS # (AUTO) 13.2 X 10^3 (1.8-7.8); NEUTROPHILS % (AUTO) 93 % (42-75); PLATELET COUNT 288 10^3/uL (130-400); RED BLOOD COUNT 4.18 10^6/uL (4.35-5.85); RED CELL DISTRIBUTION WIDTH 16.1 % (10.0-14.5); WHITE BLOOD COUNT 14.2 10^3/uL (4.3-11.0)
[2016-11-10 11:35] LABS: ALANINE AMINOTRANSFERASE 38 U/L (0-55); ALBUMIN 4.1 GM/DL (3.2-4.5); ANION GAP 10 MMOL/L (5-14); ASPARTATE AMINO TRANSFERASE 24 U/L (5-34); BILIRUBIN,TOTAL 0.3 MG/DL (0.1-1.0); BLOOD UREA NITROGEN 26 MG/DL (7-18); BUN/CREATININE RATIO 32; CALCIUM 9.9 MG/DL (8.5-10.1); CARBON DIOXIDE 24 MMOL/L (21-32); CHLORIDE 106 MMOL/L (98-107); CREATININE SERUM 0.81 MG/DL (0.60-1.30); GFR ESTIMATED > 60; GLUCOSE 122 MG/DL (70-105); POTASSIUM 4.7 MMOL/L (3.6-5.0); SODIUM 140 MMOL/L (135-145); TOTAL PROTEIN 7.3 GM/DL (6.4-8.2)
[~2016-11-23 15:30] MED LIST changes: -CATHETER FLUSH 10 ML SYR IV PRN; -IOHEXOL 350 MG/ML 100 ML (OMNIPAQUE 350) VIAL IV ONE
[2016-11-26] MEDS ORDERED: HYDR-3820 PO (13:11)
[2016-11-26] MEDS ORDERED: SERT100T8 PO (13:11)
[2016-11-26] MEDS ORDERED: OMEP40CA36 PO (13:11)
[2016-11-26] MEDS ORDERED: AMIT10TA6 PO (13:11)
[2016-11-26] MEDS ORDERED: PRD20T PO (13:19)
[2016-11-26] MEDS ORDERED: LEVO5TAB28 PO (13:21)
== END 2016-12-02 | disposition home or self-care (01) ==
LOC: ONC 15:30
PROVIDERS: ATTEND Internal Medicine Hematology & Oncology
DX: C34.31 Malignant neoplasm of lower lobe, right bronchus or lung (principal); C77.1 Secondary and unspecified malignant neoplasm of intrathoracic lymph nodes; I10 Essential (primary) hypertension; E78.00 Pure hypercholesterolemia, unspecified; M15.9 Polyosteoarthritis, unspecified; Z87.891 Personal history of nicotine dependence; Z79.899 Other long term (current) drug therapy
CPT/HCPCS: 36415; 77336; 80053; 83735; 85025; 93005; 99213

== ENCOUNTER 2016-11-26 09:13 | Inpatient (IN) | payer BC, MEDICARE ==
[2016-11-26] VITALS (14 sets, daily range): BP systolic 77–110; BP diastolic 48–67
[~2016-11-26] VITALS: Ht 172.7 cm; Wt 107.3 kg
[~2016-11-26 09:13] MED LIST changes: +DICL100T3 PO; -NF-DICLOTA PO
--- OUTSIDE RECORDS SUMMARY | 2016-11-26 09:17 | XMS REPORT | Continuity of Care Document ---
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
--- OUTSIDE RECORDS SUMMARY | 2016-11-26 09:18 | XMS REPORT | Clinical Summary ---
Author Author [facility] Organization [facility] Address Unknown Phone Unavailable Care Team Providers Care Hitcher Name Role Phone PCP Unavailable Source Comments Some departments are not documenting in the electronic medical record. If you do not see the information that you expected, contact Release of Information in the Health Information Management department at [phone] for further assistance in locating additional records.[facility] Allergies No Known Allergies Current Medications Prescription Sig. [...] Take 1 Tab by mouth Active daily. [place]-3 Acid Ethyl Esters Take 2 g by [...] bronchus of right lower lobe (HCC) 07/27/2016 Family History Medical History Relation Name Comments Cancer-Lung Father Cancer-Lung Mother Cancer Hypertension Relation Name Status Comments Father Mother Social History Tobacco Use Types Packs/Day Years Used Date Former Smoker Cigarettes 2 40 Quit: 04/04/2005 Smokeless Tobacco: Never Used Comments: currently using e cigarette Alcohol Use Drinks/Week oz/Week Comments Yes 0 Standard 0.0 2-3 per month; Pt reports former history of "Half drinks or a liter a day" of rum /day for 10-15 yrs equivalent Sex Assigned at Date Recorded Not on file Last Filed Vital Signs Vital Sign Reading Time Taken Blood Pressure 114/60 07/27/2016 12:32 PM CDT Pulse 92 07/27/2016 12:32 PM CDT Temperature 36.6 C (97.8 F) 07/27/2016 12:32 PM CDT Respiratory Rate - - Oxygen Saturation 96% 07/27/2016 12:32 PM CDT Inhaled Oxygen - - Concentration Weight 87.1 kg (192 lb) 07/27/2016 12:32 PM CDT Height 167.6 cm (5' 6") 07/27/2016 12:32 PM CDT Body Mass Index 30.99 07/27/2016 12:32 PM CDT Plan of Treatment Health Maintenance Due Date Last Done Comments HEPATITIS C SCREENING 1950 PHYSICAL (COMPREHENSIVE) 09/22/1958 EXAM PERTUSSIS VACCINE 09/22/1962 TETANUS VACCINE 09/22/1968 COLORECTAL CANCER 09/22/2001 SCREENING SHINGLES VACCINE 2011 ABDOMINAL AORTIC ANEURYSM 09/22/2016 SCREENING PREVNAR/PNEUMOVAX (#1) 09/22/2016 INFLUENZA VACCINE 12/03/2016 Implants Implanted Type Area Flower Planter Device Expiration Model / Identifier Date Serial / Lot Replacement Knee Lumbar Orthopedic Minor Screws Neck Plate Results Not on filefrom Last 3 Months
--- NOTE | 2016-11-26 09:28 | ED Cough/URI ---
General Chief Complaint: Respiratory Problems Stated Complaint: COUGHING UP BLOOD/SOA Source: patient, family Exam Limitations: no limitations History of Present Illness Time seen by provider: 09:27 Initial Comments This 66-year-old white male presents with hemoptysis and shortness of breath. Patient has known cancer lung. Patient's been running a fever. Allergies and Home Medications Allergies Coded Allergies: No Known Drug Allergies (Unverified , 01/29/16) Home Medications Aspirin 81 Mg Tab.chew, 81 MG PO DAILY, (Reported) Celecoxib 200 Mg Capsule, 200 MG PO BID, (Reported) Cetirizine HCl 10 Mg Tablet, 5 MG PO DAILY, (Reported) TAKES 1/2 OF A (10 MG) TABLET Diclofenac Sod 100 Mg Tab, 100 MG PO BID, (Reported) ON HOLD FOR NOW Levocetirizine Dihydrochloride 5 Mg Tablet, 5 MG PO HS, (Reported) Levofloxacin 750 Mg Tablet, 750 MG PO DAILY, #4 Start October 08 Prescribed by: LAURIE CALDERON on 10/07/161739 Multivitamin 1 Each Tablet, 1 TAB PO DAILY, (Reported) Olmesartan Medoxomil 20 Mg Tablet, 20 MG PO HS, (Reported) [place]-3 Acid Ethyl Esters 1 Gm Capsule, 2 GM PO DAILY, (Reported) TAKES 2 (1 GM) CAPSULES Ondansetron 4 Mg Tab.rapdis, 4 MG SL Q4H, #10 Prescribed by: LAURIE CALDERON on 10/07/161739 Rosuvastatin Calcium 20 Mg Tablet, 20 MG PO HS, (Reported) Sertraline HCl 50 Mg Tablet, 50 MG PO DAILY, (Reported) Zolpidem Tartrate 10 Mg Tablet, 10 MG PO HS PRN for INSOMNIA, (Reported) Constitutional: no symptoms reported EENTM: no symptoms reported Respiratory: see HPI, cough, dyspnea on exertion, hemoptysis, short of breath Cardiovascular: chest pain Gastrointestinal: abdominal pain, diarrhea, vomiting Genitourinary: no symptoms reported Musculoskeletal: No back pain Skin: No rash Psychiatric/Neurological: No Symptoms Reported Hematologic/Lymphatic: No Symptoms Reported Immunological/Allergic: no symptoms reported Past Reswxpx-Kopmak-Chcuhv Hx Patient Social History Alcohol Beverage of Choice: Beer Type Used: Electronic/Vapor 2nd Hand Smoke Exposure: No Recent Hopitalizations: No Immunizations Up To Date Tetanus Booster (TDap): Unknown Date of Pneumonia Vaccine: Jan 02, 2013 Date of Influenza Vaccine: Jan 22, 2016 Seasonal Allergies Seasonal Allergies: No Surgeries History of Surgeries: Yes (BACK SX X3, NECK SX, LEFT KNEE SCOPE X2, ) Surgeries: Lobectomy Respiratory History of Respiratory Disorde: Yes Respiratory Disorders: Pneumonia Cardiovascular History of Cardiac Disorders: Yes Cardiac Disorders: Hypertension Neurological History of Neurological Disord: No Reproductive System Hx Reproductive Disorders: No Gastrointestinal History of Gastrointestinal Di: Yes Gastrointestinal Disorders: Gastroesophageal Reflux Musculoskeletal History of Musculoskeletal Dis: Yes Musculoskeletal Disorders: Arthritis Endocrine History of Endocrine Disorders: No HEENT HEENT Disorders: Cataract Cancer History of Cancer: Yes Cancer: Skin Psychosocial History of Psychiatric Problem: Yes Behavioral Health Disorders: Depression Integumentary History of Skin or Integumenta: Yes Skin/Integumentary Disorders: Psoriasis Blood Transfusions History of Blood Disorders: No Reviewed Nursing Assessment Reviewed/Agree w Nursing PMH: Yes Family Medical History Family Medial History: Elk's disease 19 FATHER Arthritis 19 FATHER 19 MOTHER G8 BROTHER G8 SISTER Hypertension 19 FATHER Myocardial infarction 19 FATHER Neoplasm 19 FATHER (LUNG CA) 19 MOTHER (LUNG CA) Respiratory disorder 19 FATHER (lung ca, COPD) 19 MOTHER (lung ca) Thyroid disease 19 MOTHER Physical Exam Vital Signs Vital Sign - Last 12Hours 11/26/16 11/26/16 09:31 09:39 Temp 101.3 Pulse 130 Resp 22 B/P (MAP) 123/75 Pulse Ox 91 O2 Delivery Nasal Cannula O2 Flow Rate 8.00 Capillary Refill : General Appearance: WD/WN, mild distress HEENT: normal ENT inspection Neck: normal inspection Respiratory: decreased breath sounds Cardiovascular: regular rate, rhythm, tachycardia Gastrointestinal: normal bowel sounds, non tender, soft Extremities: normal range of motion, non-tender Neurologic/Psychiatric: no motor/sensory deficits, alert, normal mood/affect Skin: normal color, warm/dry Focused Exam Evaluation Lactate Level Laboratory Tests 11/26/16 09:57: Lactic Acid Level 2.02*H Lactic Acid Level Laboratory Tests Test 11/26/16 09:57 Lactic Acid Level 2.02 MMOL/L (0.50-2.00) *H Progress/Results/Core Measures Results/Orders Lab Results Laboratory Tests Test 11/26/16 09:30 11/26/16 09:52 11/26/16 09:57 Range/Units White Blood Count 11.0 4.3-11.0 10^3/uL Red Blood Count 4.05 L 4.35-5.85 10^6/uL Hemoglobin 12.3 L 13.3-17.7 G/DL Hematocrit 39 L 40-54 % Mean Corpuscular Volume 96 80-99 FL Mean Corpuscular Hemoglobin 30 25-34 PG Mean Corpuscular Hemoglobin Concent 32 32-36 G/DL Red Cell Distribution Width 15.9 H 10.0-14.5 % Platelet Count 219 130-400 10^3/uL Mean Platelet Volume 9.4 7.4-10.4 FL Neutrophils (%) (Auto) 86 H 42-75 % Lymphocytes (%) (Auto) 5 L 12-44 % Monocytes (%) (Auto) 6 0-12 % Eosinophils (%) (Auto) 3 0-10 % Basophils (%) (Auto) 0 0-10 % Neutrophils # (Auto) 9.4 H 1.8-7.8 X 10^3 Lymphocytes # (Auto) 0.5 L 1.0-4.0 X 10^3 Monocytes # (Auto) 0.7 0.0-1.0 X 10^3 Eosinophils # (Auto) 0.3 0.0-0.3 10^3/uL Basophils # (Auto) 0.0 0.0-0.1 10^3/uL Neutrophils % (Manual) 75 % Lymphocytes % (Manual) 11 % Monocytes % (Manual) 7 % Eosinophils % (Manual) 0 % Basophils % (Manual) 1 % Band Neutrophils 6 % Anisocytosis SLIGHT Sodium Level 141 135-145 MMOL/L Potassium Level 4.1 3.6-5.0 MMOL/L Chloride Level 104 98-107 MMOL/L Carbon Dioxide Level 28 21-32 MMOL/L Anion Gap 9 5-14 MMOL/L Blood Urea Nitrogen 29 H 7-18 MG/DL Creatinine 0.78 0.60-1.30 MG/DL Estimat Glomerular Filtration Rate > 60 BUN/Creatinine Ratio 37 Glucose Level 126 H 70-105 MG/DL Calcium Level 9.1 8.5-10.1 MG/DL Total Bilirubin 0.3 0.1-1.0 MG/DL Aspartate Amino Transf (AST/SGOT) 34 5-34 U/L Alanine Aminotransferase (ALT/SGPT) 37 0-55 U/L Alkaline Phosphatase 138 H 40-136 U/L Total Protein 6.5 6.4-8.2 GM/DL Albumin 3.7 3.2-4.5 GM/DL Blood Gas Puncture Site UNK Blood Gas Patient Temperature 101.6 Arterial Blood pH 7.40 7.37-7.43 Arterial Blood Partial Pressure CO2 40 35-45 MMHG Arterial Blood Partial Pressure O2 67 L 79-93 MMHG Arterial Blood HCO3 24 23-27 MMOL/L Arterial Blood Total CO2 25.1 21.0-31.0 MMOL/L Arterial Blood Oxygen Saturation 93 L 94-100 % Arterial Blood Base Excess 0.1 -2.5-2.5 MMOL/L Guido Test YES-POS Blood Gas Ventilator Setting NO Blood Gas Inspired Oxygen RA Lactic Acid Level 2.02 *H 0.50-2.00 MMOL/L My Orders Orders - KATELIN WILKES MD Ct Chest W (11/26/16 09:23) Cbc With Automated Diff (11/26/16 09:23) Comprehensive Metabolic Panel (11/26/16 09:23) Ua Culture If Indicated (11/26/16 09:23) Arterial Blood Gas (11/26/16 09:23) Albuterol/Ipra Inhalation Soln (Duoneb I (11/26/16 09:30) Svn Sm Volume Nebulizer Rt-Rfs (11/26/16 09:23) Blood Culture (11/26/16 09:26) Lactic Acid Analyzer (11/26/16 09:26) Hydromorphone Injection (Dilaudid Inject (11/26/16 09:45) Manual Differential (11/26/16 09:30) Iohexol Injection (Omnipaque 350 Mg/Ml 1 (11/26/16 10:00) Sodium Chloride Flush (Catheter Flush Sy (11/26/16 10:00) Ns (Ivpb) (Sodium Chloride 0.9% Ivpb Bag (11/26/16 10:00) Chest 1 View, Ap/Pa Only (11/26/16 11:00) Zosyn 4.5 Gm Iv (1x Dose) (11/26/16 11:00) Medications Given in ED Current Medications Medications Dose Ordered Sig/Yumiko Route Start Time Stop Time Status Last Admin Dose Admin Albuterol/ Ipratropium 3 ml ONCE ONCE INH 8/25/17 09:30 11/26/16 09:31 DC 11/26/16 09:30 3 ML Hydromorphone HCl 1 mg ONCE ONCE IVP 11/26/16 09:45 11/26/16 09:46 DC 11/26/16 09:51 1 MG Iohexol 75 ml ONCE ONCE IV 11/26/16 10:00 11/26/16 10:01 DC 11/26/16 10:18 75 ML Sodium Chloride 10 ml NEEDED PRN IV 11/26/16 10:00 11/26/16 10:18 10 ML Sodium Chloride 100 ml ONCE ONCE IV 11/26/16 10:00 11/26/16 10:01 DC 11/26/16 10:18 80 ML Vital Signs/I&O Vital Sign - Last 12Hours 11/26/16 11/26/16 11/26/16 09:31 09:39 09:51 Temp 101.3 101.3 Pulse 130 Resp 22 B/P (MAP) 123/75 Pulse Ox 91 88 O2 Delivery Nasal Cannula Nasal Cannula O2 Flow Rate 8.00 Progress Note : Time: 11:01 Progress Note The patient's CT of the chest demonstrated a groundglass opacity of the left lung suggestive of a pneumonia. The patient's white count was normal but her lactic acid was elevated at greater than 2. Telephone consultation was undertaken with Dr. Cooper recommended a consult with his partner Dr. Khan. Dr. Alaniz was kind enough to accept the patient. We discussed antibiotics and initiated Zosyn and will follow the pneumonia protocol for pseudomonas risk since the patient has cancer and include Levaquin. Antibodies were initiated in the emergency department. 2 blood cultures were obtained. The patient was significantly improved in terms of his pain with a milligram of Dilaudid. The patient's oxygenation and was marginal on 3 L per nasal cannula with an O2 of 67. Departure Communication Time/Spoke to Admitting Phy: 11:[address] Alaniz. Time/Spoke to Consulting Physi: 11:04 Communication/Consulting Dr. Masters. Impression Impression: Primary Impression: Pneumonia Additional Impressions: Hypoxemia Cancer of lung Disposition: ADMITTED INPATIENT Condition: Improved Admissions Decision to Admit Reason: Admit from ER (General) Decision to Admit/Date: Nov 26, 2016 Time/Decision to Admit Time: 11:08 Departure-Patient Inst. Referrals: ELBA GROSSMAN DO (PCP/Family) Primary Care Physician KATELIN WILKES MD Nov 26, 2016 09:28
[2016-11-26] MEDS ORDERED: RT-ALBUTEROL/IPRATROPIUM 3 ML (DUONEB) VIAL INH ONE ×2 (09:30→11:15)
[2016-11-26 09:43] LABS: BASOPHILS % (AUTO) 0 % (0-10); EOSINOPHILS # (AUTO) 0.3 10^3/uL (0.0-0.3); EOSINOPHILS % (AUTO) 3 % (0-10); LYMPHOCYTES # (AUTO) 0.5 X 10^3 (1.0-4.0); LYMPHOCYTES % (AUTO) 5 % (12-44); MEAN CORPUSCULAR HEMOGLOBIN 30 PG (25-34); MEAN CORPUSCULAR HGB CONC 32 G/DL (32-36); MEAN CORPUSCULAR VOLUME 96 FL (80-99); MEAN PLATELET VOLUME 9.4 FL (7.4-10.4); MONOCYTES # (AUTO) 0.7 X 10^3 (0.0-1.0); MONOCYTES % (AUTO) 6 % (0-12); NEUTROPHILS # (AUTO) 9.4 X 10^3 (1.8-7.8); NEUTROPHILS % (AUTO) 86 % (42-75); PLATELET COUNT 219 10^3/uL (130-400); RED BLOOD COUNT 4.05 10^6/uL (4.35-5.85); RED CELL DISTRIBUTION WIDTH 15.9 % (10.0-14.5)
[2016-11-26] MEDS ORDERED: HYDROmorphone (DILAUDID) 2 MG/ML VIAL IVP ONE (09:45)
[2016-11-26 09:56] LABS: ABG BASE EXCESS 0.1 MMOL/L (-2.5-2.5); ABG HCO3 24 MMOL/L (23-27); ABG OXYGEN SATURATION 93 % (94-100); ABG PCO2 40 MMHG (35-45); ABG PO2 67 MMHG (79-93); ABG TCO2 25.1 MMOL/L (21.0-31.0)
[2016-11-26 09:57] LABS: ALLENS TEST YES-POS
[2016-11-26 09:58] LABS: PATIENT TEMP 101.6
[2016-11-26] MEDS ORDERED: CATHETER FLUSH 10 ML SYR IV PRN ×2 (10:00→12:45)
[2016-11-26] MEDS ORDERED: IOHEXOL 350 MG/ML 100 ML (OMNIPAQUE 350) VIAL IV ONE (10:00)
[2016-11-26] MEDS ORDERED: NS 100 ML (IVPB) BAG IV ONE (10:00)
[2016-11-26 10:06] LABS: ALANINE AMINOTRANSFERASE 37 U/L (0-55); ALBUMIN 3.7 GM/DL (3.2-4.5); ANION GAP 9 MMOL/L (5-14); ASPARTATE AMINO TRANSFERASE 34 U/L (5-34); BILIRUBIN,TOTAL 0.3 MG/DL (0.1-1.0); BLOOD UREA NITROGEN 29 MG/DL (7-18); BUN/CREATININE RATIO 37; CALCIUM 9.1 MG/DL (8.5-10.1); CARBON DIOXIDE 28 MMOL/L (21-32); CHLORIDE 104 MMOL/L (98-107); CREATININE SERUM 0.78 MG/DL (0.60-1.30); GFR ESTIMATED > 60; GLUCOSE 126 MG/DL (70-105); POTASSIUM 4.1 MMOL/L (3.6-5.0); SODIUM 141 MMOL/L (135-145); TOTAL PROTEIN 6.5 GM/DL (6.4-8.2)
[2016-11-26 10:12] LABS: ANISOCYTOSIS SLIGHT; BAND NEUTROPHILS 6 %; BASOPHILS % (MANUAL) 1 %; EOSINOPHILS % (MANUAL) 0 %; LYMPHOCYTES % (MANUAL) 11 %; NEUTROPHILS % (MANUAL) 75 %
--- NOTE | 2016-11-26 10:37 | Diagnostic Imaging Report ---
PROCEDURE: CT chest with contrast only. TECHNIQUE: Multiple contiguous axial images were obtained through the chest after administration of intravenous contrast. Indication: Hypoxia and dyspnea. Comparison: 11/10/2016. Discussion: Stable normal heart size. Shotty mediastinal lymph nodes are stable. The thoracic aorta is normal in caliber and configuration. The pulmonary arteries are not dilated. No axillary adenopathy. No pleural or pericardial fluid. Underlying changes of emphysema are stable. New groundglass opacities throughout the left lung is nonspecific and could be seen with pneumonia or an inflammatory process. Appearance is not typical of pulmonary edema as there is no associated interstitial thickening. Atelectasis and opacities within the base of the right upper lung appear stable to slightly increased and superimposed pneumonia in this region cannot be excluded. The right lower lobe is surgically absent. The visualized upper abdomen is unremarkable. No acute osseous abnormality identified. Impression: 1. New diffuse groundglass opacities throughout the left lung could be seen with pneumonia or an inflammatory process. Additional opacities within the right lung base could represent atelectasis and/or pneumonia. 2. Emphysema. 3. Stable postoperative changes. Dictated by: Dictated on workstation # [id number]
[2016-11-26] MEDS ORDERED: PIPERACILLIN SODIUM/TAZOBACTAM 4.5 GM in NS (IVPB) 100 ML IV ONE (11:00)
--- OUTSIDE RECORDS SUMMARY | 2016-11-26 11:12 | XMS REPORT | Continuity of Care Document ---
Author Author [employer] Organization [facility] Address Unknown Phone Unavailable Care Team Providers Care Medical Assistant Dermatology Name Role Phone [employer] Unavailable Unavailable Problems Medications Allergies, Adverse Reactions, Alerts Immunizations Results Vital Signs Encounters Procedures Plan of Care Social History Assessment and Plan Family History Value Date Source Advance Directives Order Name Results Value Date Source
--- OUTSIDE RECORDS SUMMARY | 2016-11-26 11:13 | XMS REPORT | Clinical Summary ---
Author Author [facility] Organization [facility] Address Unknown Phone Unavailable Care Team Providers Care Practice Coordinator Name Role Phone PCP Unavailable Source Comments Some departments are not documenting in the electronic medical record. If you do not see the information that you expected, contact Release of Information in the Health Information Management department at [phone] for further assistance in locating additional records.[facility] Allergies No Known Allergies Current [...] Take 1 Tab by mouth Active daily. [place]-3 Acid Ethyl Esters Take 2 g by [...] INFLUENZA VACCINE 12/03/2016 Implants Implanted Type Area Skiver Uppers Or Linings Device Expiration Model / Identifier Date Serial / Lot Replacement Knee Lumbar Orthopedic Minor Screws Neck Plate Results Not on filefrom Last 3 Months
--- NOTE | 2016-11-26 12:23 | Diagnostic Imaging Report ---
INDICATION: Hemoptysis. COMPARISON: CT chest of earlier same day. FINDINGS: Right lower lobe heterogeneous consolidations. Diffuse hazy opacities throughout the left lung. No pneumothorax. Asymmetric elevation of right hemidiaphragm. No pleural effusion. Heart is mildly enlarged. IMPRESSION: 1. Right basilar heterogeneous consolidations may relate to pneumonia in appropriate setting. However, given asymmetric elevation right hemidiaphragm, this could be due to atelectasis. 2. Diffuse hazy opacities throughout left lung could be infectious in etiology or due to pulmonary edema. Dictated by: Dictated on workstation # [id number]
[2016-11-26] MEDS ORDERED: HYDROmorphone (DILAUDID) 2 MG/ML VIAL IV PRN (12:45)
[2016-11-26] MEDS: LEVOFLOXACIN 750 MG/150 ML IV 150 ML IV SCH (12:46)
[2016-11-26] MEDS ORDERED: RT-ALBUTEROL/IPRATROPIUM 3 ML (DUONEB) VIAL INH PRN (13:00)
[2016-11-26] MEDS ORDERED: AMIT10TA6 PO (13:11)
[2016-11-26] MEDS ORDERED: SERT100T8 PO (13:11)
[2016-11-26] MEDS ORDERED: HYDR-3820 PO (13:11)
[2016-11-26] MEDS ORDERED: OMEP40CA36 PO (13:11)
[2016-11-26] MEDS ORDERED: PRD20T PO (13:19)
[2016-11-26] MEDS ORDERED: LEVO5TAB28 PO (13:21)
[2016-11-26] MEDS: RT-ALBUTEROL/IPRATROPIUM 3 ML (DUONEB) VIAL INH SCH ×3 (14:08→21:24)
[2016-11-26] MEDS: HYDROmorphone (DILAUDID) 2 MG/ML VIAL IVP PRN ×3 (15:59→22:56)
[2016-11-26] MEDS ORDERED: LACTATED RINGERS 1,000 ML IV ONE ×3 (16:45→19:30)
--- NOTE | 2016-11-26 17:04 | Oncology Consultation ---
Visit Information Visit Information Date of Admission Nov 26, 2016 at 11:00 Attending Physician Xochilt Alaniz DO Admitting Physician Alan Garcia DO Chief Complaint hypoxia, lung cancer Interval History Mr. Cross is a 66 year old white man with stage IIIA squamous cell lung cancer and emphysema and recent h/o radiation pneumonitis on prednisone taper at 25mg /day under the care of Dr Masters. He presented to ER today with severe hypoxia this morning O2sat 60% with 3 L oxygen at home. He also had fever 101 and aching allover of his neck, chest and knee and hip joints. He was admitted to ICU and put on bi-pap FiO2 70% with O2 sat 90%. His pain is also much better after a dose of Dilaudid at ER. PMH: 1. cT2b cN1 cM0 initial clinical stage IIB moderately differentiated squamous cell carcinoma of the right lower lobe; inoperable at diagnosis but still a potential surgical candidate. Status post neoadjuvant / induction chemotherapy with Carboplatin and Taxol regimen 4 cycles with excellent response. He then had VATS assisted right lower lobectomy and lymph node sampling on 07/08/2016. pT1b pN2 cM0 pathological stage IIIA moderately differentiated squamous cell carcinoma as 07/08/2016 2. Status post adjuvant radiation therapy along with weekly low-dose chemotherapy completed on 09/29/2016. 3. Radiation pneumonitis with significant shortness of breath, started on prednisone therapy in late October 2016. Clinically improving and prednisone taper from 50mg/d to 25mg/d now. 4. Emphysema I consulted the patient on: 11/26/16 17:00 Time Seen by Provider: 17:20 Constitutional: diaphoresis, fever, weakness Respiratory: cough, dyspnea on exertion, wheezing Cardiovascular: chest pain, palpitations Gastrointestinal: no symptoms reported Musculoskeletal: back pain, joint pain, muscle pain, muscle stiffness Health Status Allergies Coded Allergies: No Known Drug Allergies (Unverified , 01/29/16) Home Medications Amitriptyline HCl (Amitriptyline HCl) 10 Mg Tablet, 40 MG PO HS, (Reported) TAKES 4 (10MG) TABLETS Aspirin (Aspirin) 81 Mg Tab.chew, 81 MG PO DAILY, (Reported) Cetirizine HCl (Zyrtec) 10 Mg Tablet, 10 MG PO DAILY, (Reported) Diclofenac Sod (Diclofenac Sodium ER) 100 Mg Tab, 100 MG PO BID, (Reported) Hydrocodone/Acetaminophen (Hydrocodon-Acetaminophn 10-325) 1 Each Tablet, 2 TAB PO 2000, (Reported) Levocetirizine Dihydrochloride (Xyzal) 5 Mg Tablet, 5 MG PO HS, (Reported) Multivitamin (Multivitamins) 1 Each Tablet, 1 TAB PO DAILY, (Reported) Olmesartan Medoxomil (Benicar) 20 Mg Tablet, 20 MG PO HS, (Reported) [place]-3 Acid Ethyl Esters (Lovaza) 1 Gm Capsule, 2 GM PO HS, (Reported) TAKES 2 (1 GM) CAPSULES Omeprazole (Omeprazole) 40 Mg Capsule.dr, 40 MG PO DAILY PRN for HEARTBURN, ( Reported) Prednisone (Prednisone) 20 Mg Tab, 25 MG PO DAILY, (Reported) TAKES 1 & 1/4 (20MG) TABLET Rosuvastatin Calcium (Crestor) 20 Mg Tablet, 20 MG PO HS, (Reported) Sertraline HCl (Sertraline HCl) 100 Mg Tablet, 100 MG PO DAILY, (Reported) Zolpidem Tartrate (Ambien) 10 Mg Tablet, 10 MG PO HS, (Reported) KTF-Xjursb-Yzutmr Hx Patient Social History Alcohol Use: Denies Use Recreational Drug Use: No Smoking Status: Former Smoker Former smoker/When Quit: Jun 24, 2012 Type Used: Cigarettes 2nd Hand Smoke Exposure: No Recent Foreign Travel: No Contact w/other who traveled: No Recent Infectious Disease Expo: No Recent Hopitalizations: No Physical Abuse Screen: No Sexual Abuse: No Immunizations Up To Date Tetanus Booster (TDap): Unknown Date of Pneumonia Vaccine: Jan 02, 2013 Date of Influenza Vaccine: Jan 22, 2016 Family Medical History Family History: [place]'s disease 19 FATHER Arthritis 19 FATHER 19 MOTHER G8 BROTHER G8 SISTER Hypertension 19 FATHER Myocardial infarction 19 FATHER Neoplasm 19 FATHER (LUNG CA) 19 MOTHER (LUNG CA) Respiratory disorder 19 FATHER (lung ca, COPD) 19 MOTHER (lung ca) Thyroid disease 19 MOTHER Physical Exam Vital Signs Vital Sign - Last 12Hours 11/26/16 11/26/16 11/26/16 09:31 09:39 11:09 Temp 101.3 Pulse 130 Resp 22 B/P (MAP) 123/75 Pulse Ox 91 O2 Delivery Nasal Cannula O2 Flow Rate 8.00 FiO2 100 Capillary Refill : Less Than 3 Seconds General Appearance: Moderate Distress, Obese HEENT: PERRL/EOMI Respiratory: Other (on bi-pap) Cardiovascular: Regular Rate, Rhythm, Bradycardia Gastrointestinal: Non Tender, Soft Extremity: Non Tender, No Calf Tenderness, No Pedal Edema Neurologic/Psychiatric: Alert, Oriented x3 Data Review Labs Laboratory Tests 11/27/16 04:40 11/27/16 11:21 Laboratory Tests 11/26/16 09:30: Red Blood Count 4.05L, Hemoglobin 12.3L, Hematocrit 39L, Red Cell Distribution Width 15.9H, Neutrophils (%) (Auto) 86H, Lymphocytes (%) (Auto) 5L, Neutrophils # (Auto) 9.4H, Lymphocytes # (Auto) 0.5L, Blood Urea Nitrogen 29H, Glucose Level 126H, Alkaline Phosphatase 138H 11/26/16 09:52: Arterial Blood Partial Pressure O2 67L, Arterial Blood Oxygen Saturation 93L 11/26/16 09:57: Lactic Acid Level 2.02*H 11/26/16 12:55: Lactic Acid Level 2.33*H 11/27/16 04:40: White Blood Count 11.7H, Red Blood Count 3.42L, Hemoglobin 10.6L, Hematocrit 34L , Red Cell Distribution Width 15.7H, Neutrophils (%) (Auto) 96H, Lymphocytes (% ) (Auto) 1L, Neutrophils # (Auto) 11.3H, Lymphocytes # (Auto) 0.2L, Blood Urea Nitrogen 27H, Glucose Level 194H 11/27/16 09:40: Lactic Acid Level 3.34*H 11/27/16 11:21: Blood Urea Nitrogen 27H, Glucose Level 215H, Aspartate Amino Transf (AST/SGOT) 35H, Total Protein 5.6L, Albumin 3.0L 11/27/16 12:07: Lactic Acid Level 3.66*H Radiology Impression: 1. New diffuse groundglass opacities throughout the left lung could be seen with pneumonia or an inflammatory process. Additional opacities within the right lung base could represent atelectasis and/or pneumonia. 2. Emphysema. 3. Stable postoperative changes. Impression & Plan Impression & Plan IMP: 1. Severe hypoxia most likely due to combination of pneumonitis and infectious pneumonia with fever. 2. 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 3. S/p radiation treatment 09/29/16 complicated with radiation pneumonitis on Prednisone taper at 25mg/d 4. Obese 5. Emphysema 6. Pain control issues. Plan: 1. IV steroid Solumedrol 125mg q 8hrs for 24 hrs and if improved, convert to PO prednisone 2. Agree with current IV Levaquin and Zosyn. F/u culture results and sensitivities. 3. Empirically Bactrim DC for PCP prophylaxis since pt has been on high dose steroid treatment for a while and h/o radiation of the lung. 4. Agree with current ICU and supportive care. 5. Pt is full code. 6. Morphine for anxiety of SOB and pain. FLACO SANDERS MD Nov 26, 2016 17:04
[2016-11-26] MEDS ORDERED: NOREPINEPHRINE 4 MG in D5W 250 ML (IVPB) 250 ML IV SCH (18:15)
[2016-11-26] MEDS: TRIM/SULFAMETH 160/800 (SEPTRA DS) TAB PO SCH (19:15)
[2016-11-26] MEDS: PIPERACILLIN/TAZOBACTAM 4.5 GM/NS 100 ML IVPB IV SCH ×2 (19:15)
--- NOTE | 2016-11-26 20:14 | Diagnostic Imaging Report ---
INDICATION: Central line placement. EXAMINATION: Single view of the chest was obtained. FINDINGS: Right EJ PICC line tip projects over the SVC. There is diffuse interstitial infiltrate in the left lung. There is a right pleural effusion with some infiltrate or atelectasis at the right lung base. IMPRESSION: Stable appearance of the lungs from earlier in the day. PICC line tip projects over the SVC. Dictated by: Dictated on workstation # [id number]
--- NOTE | 2016-11-26 20:19 | Consultation ---
History of Present Illness History of Present Illness Patient Consulted On(binh/time) 11/26/16 20:14 Time Seen by Provider: 19:06 History of Present Illness Surgery asked to consult regarding hypotension. HPI: Mr. Cross is a 66 year old white man with stage IIIA squamous cell lung cancer and emphysema and recent h/o radiation pneumonitis on prednisone taper at 25mg /day under the care of Dr Masters. He presented to ER today with severe hypoxia this morning O2sat 60% with 3 L oxygen at home. He also had fever 101 and aching allover of his neck, chest and knee and hip joints. He was admitted to ICU and put on bi-pap FiO2 70% with O2 sat 90%. His pain is also much better after a dose of Dilaudid at ER. He also apparently coughed up some blood in the ER After admission to the ICU he began having low BP and they wanted to start Levophed and needed a central line. He has some venous insufficiency, they never placed a port for his chemotherapy and he stated he got "11 treatments". Allergies and Home Medications Allergies Coded Allergies: No Known Drug Allergies (Unverified , 01/29/16) Home Medications Amitriptyline HCl 10 Mg Tablet, 40 MG PO HS, (Reported) TAKES 4 (10MG) TABLETS Aspirin 81 Mg Tab.chew, 81 MG PO DAILY, (Reported) Cetirizine HCl 10 Mg Tablet, 10 MG PO DAILY, (Reported) Diclofenac Sod 100 Mg Tab, 100 MG PO BID, (Reported) Hydrocodone/Acetaminophen 1 Each Tablet, 2 TAB PO 2000, (Reported) Levocetirizine Dihydrochloride 5 Mg Tablet, 5 MG PO HS, (Reported) Multivitamin 1 Each Tablet, 1 TAB PO DAILY, (Reported) Olmesartan Medoxomil 20 Mg Tablet, 20 MG PO HS, (Reported) [place]-3 Acid Ethyl Esters 1 Gm Capsule, 2 GM PO HS, (Reported) TAKES 2 (1 GM) CAPSULES Omeprazole 40 Mg Capsule.dr, 40 MG PO DAILY PRN for HEARTBURN, (Reported) Prednisone 20 Mg Tab, 25 MG PO DAILY, (Reported) TAKES 1 & 1/4 (20MG) TABLET Rosuvastatin Calcium 20 Mg Tablet, 20 MG PO HS, (Reported) Sertraline HCl 100 Mg Tablet, 100 MG PO DAILY, (Reported) Zolpidem Tartrate 10 Mg Tablet, 10 MG PO HS, (Reported) Past Gauixwb-Rmvxwl-Snahwo Hx Patient Social History Alcohol Use: Denies Use Number of Drinks Today: AA Recreational Drug Use: No Smoking Status: Former Smoker Former Smoker, Quit: Sep 26, 2016 Type Used: Cigarettes 2nd Hand Smoke Exposure: No Recent Foreign Travel: No Contact w/Someone Who Travel: No Recent Infectious Disease Expo: No Recent Hopitalizations: No Physical Abuse Screen: No Sexual Abuse: No Immunizations Up To Date Tetanus Booster (TDap): Unknown Date of Pneumonia Vaccine: Jan 02, 2013 Date of Influenza Vaccine: Jan 22, 2016 Seasonal Allergies Seasonal Allergies: No Surgeries History of Surgeries: Yes (BACK SX X3, NECK SX, LEFT KNEE SCOPE X2, ) Surgeries: Lobectomy Respiratory History of Respiratory Disorde: Yes Respiratory Disorders: Pneumonia, COPD, Emphysema Cardiovascular History of Cardiac Disorders: Yes Cardiac Disorders: Hypertension Neurological History of Neurological Disord: No (BURNING SENSATIONS (CURRENTLY SEEING A NUEROLOGIST) POSS. 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) Cancer: Lung, Skin Psychosocial History of Psychiatric Problem: Yes Behavioral Health Disorders: Depression Integumentary History of Skin or Integumenta: Yes Skin/Integumentary Disorders: Psoriasis Blood Transfusions History of Blood Disorders: No Adverse Reaction to a Blood Tr: No Reviewed Nursing Assessment Reviewed/Agree w Nursing PMH: Yes Family Medical History Significant Family History: Cancer (both parents of lung CA) Family Medial History: [place]'s disease 19 FATHER Arthritis 19 FATHER 19 MOTHER G8 BROTHER G8 SISTER Hypertension 19 FATHER Myocardial infarction 19 FATHER Neoplasm 19 FATHER (LUNG CA) 19 MOTHER (LUNG CA) Respiratory disorder 19 FATHER (lung ca, COPD) 19 MOTHER (lung ca) Thyroid disease 19 MOTHER Review of Systems-General Constitutional: chills, diaphoresis, malaise, weakness EENTM: blurred vision (hx of cataracts), No hoarseness, No epistaxis, No throat swelling Respiratory: cough, dyspnea on exertion, hemoptysis, short of breath Cardiovascular: No chest pain, No palpitations Gastrointestinal: No abdominal pain, No constipation, No diarrhea, No dysphagia Genitourinary: No dysuria, No frequency, No hematuria Musculoskeletal: back pain, joint pain, muscle stiffness Skin: No change in color, No change in hair/nails Psychiatric/Neurological: Denies Anxiety, Depressed, Denies Seizure, Tingling ( burning, possible neuropathy seeing a neurologist), Denies Tremors, Denies Weakness Other denies abnormal bruising or bleeding, no heat or cold intolerance Physical Exam-General Problems Physical Exam Vital Signs Vital Sign - Last 12Hours 11/26/16 11/26/16 11/26/16 09:31 09:39 11:09 Temp 101.3 Pulse 130 Resp 22 B/P (MAP) 123/75 Pulse Ox 91 O2 Delivery Nasal Cannula O2 Flow Rate 8.00 FiO2 100 Capillary Refill : Less Than 3 Seconds General Appearance: WD/WN, moderate distress Eyes: Bilateral Eye PERRL, Bilateral Eye EOMI HEENT: pharynx normal, No scleral icterus (R), No scleral icterus (L), No pale conjunctivae (R), No pale conjunctivae (L) Neck: supple, No thyromegaly Respiratory: decreased breath sounds (right greater than left), accessory muscle use, crackles, rhonchi, other (pt is on BiPap) Cardiovascular: regular rate, rhythm, no edema, no murmur Gastrointestinal: normal bowel sounds, non tender, soft, no organomegaly, no pulsatile mass Rectal: deferred Back: no CVA tenderness, no vertebral tenderness Extremities: no pedal edema, no calf tenderness, normal capillary refill Neurologic/Psychiatric: pcb designer II-XII nml as tested, no motor/sensory deficits, alert, normal mood/affect, oriented x 3 Reflexes: 4+ Knee (R), 4+ Knee (L) Skin: normal color, warm/dry Data Review Labs Laboratory Tests 11/26/16 09:30: White Blood Count 11.0, Red Blood Count 4.05L, Hemoglobin 12.3L, Hematocrit 39L , Mean Corpuscular Volume 96, Mean Corpuscular Hemoglobin 30, Mean Corpuscular Hemoglobin Concent 32, Red Cell Distribution Width 15.9H, Platelet Count 219, Mean Platelet Volume 9.4, Neutrophils (%) (Auto) 86H, Lymphocytes (%) (Auto) 5L , Monocytes (%) (Auto) 6, Eosinophils (%) (Auto) 3, Basophils (%) (Auto) 0, Neutrophils # (Auto) 9.4H, Lymphocytes # (Auto) 0.5L, Monocytes # (Auto) 0.7, Eosinophils # (Auto) 0.3, Basophils # (Auto) 0.0, Neutrophils % (Manual) 75, Lymphocytes % (Manual) 11, Monocytes % (Manual) 7, Eosinophils % (Manual) 0, Basophils % (Manual) 1, Band Neutrophils 6, Anisocytosis SLIGHT, Sodium Level 141, Potassium Level 4.1, Chloride Level 104, Carbon Dioxide Level 28, Anion Gap 9, Blood Urea Nitrogen 29H, Creatinine 0.78, Estimat Glomerular Filtration Rate > 60, BUN/Creatinine Ratio 37, Glucose Level 126H, Calcium Level 9.1, Total Bilirubin 0.3, Aspartate Amino Transf (AST/SGOT) 34, Alanine Aminotransferase (ALT/SGPT) 37, Alkaline Phosphatase 138H, Total Protein 6.5, Albumin 3.7 11/26/16 09:52: Blood Gas Puncture Site UNK, Blood Gas Patient Temperature 101.6, Arterial Blood pH 7.40, Arterial Blood Partial Pressure CO2 40, Arterial Blood Partial Pressure O2 67L, Arterial Blood HCO3 24, Arterial Blood Total CO2 25.1, Arterial Blood Oxygen Saturation 93L, Arterial Blood Base Excess 0.1, Guido Test YES-POS, Blood Gas Ventilator Setting NO, Blood Gas Inspired Oxygen RA 11/26/16 09:57: Lactic Acid Level 2.02*H 11/26/16 12:55: Lactic Acid Level 2.33*H Microbiology 11/26/16 Blood Culture - Preliminary, Resulted Assessment/Plan Assessment/Plan Assessment/Plan 1. Hypotension 2. Hypoxia 3. Venous Insufficiency 4. Lung CA Pt needs a central line for levophed. Discussed with pt's risks and complications; not limited to pain, bleeding, infection and even pneumothorax. These should be decreased because plan to use US to access right IJ vein. All questions answered to his satisfaction. Clinical Quality Measures DVT/VTE Risk/Contraindication: Risk Factor Score Per Nursin RFS Level Per Nursing on Admit: 2=Moderate CASIMIRO WAKEFIELD DO Nov 26, 2016 20:19
--- NOTE | 2016-11-26 20:31 | Progress Note-Post Operative ---
Post-Operative Progess Note Surgeon (s)/Die Keeper (s) Surgeon CASIMIRO WAKEFIELD DO Die Keeper: none Pre-Operative Diagnosis Hypotension, Hypoxia, Venous Insufficiency, Lung CA Post-Operative Diagnosis same Procedure & Operative Findings Date of Procedure 11/26/16 Procedure Performed/Findings Right IJ triple lumen insertion with US guidance Anesthesia Type local lidocaine Estimated Blood Loss Estimated blood loss (mL): scant Specimens/Packing Specimens Removed none CASIMIRO WAKEFIELD DO Nov 26, 2016 20:31
[2016-11-26] MEDS: LORazepam INJ 2 MG/ML (ATIVAN) VIAL IVP PRN (21:06)
[2016-11-26] MEDS: CATHETER FLUSH 10 ML SYR IV SCH (21:07)
[2016-11-26] MEDS: methylPREDNISolone 125 MG (Solu-MEDROL) VIAL IVP SCH (22:04)
[2016-11-26] MEDS: LACTATED RINGERS 1,000 ML IV SCH (22:37)
[2016-11-26] MEDS ORDERED: AMITRIPTYLINE 10 MG (ELAVIL) TAB PO ONE (23:09)
[2016-11-26] MEDS: AMITRIPTYLINE 10 MG (ELAVIL) TAB PO SCH (23:19)
[2016-11-27] VITALS (31 sets, daily range): BP systolic 83–138; BP diastolic 47–84
[2016-11-27] MEDS: PIPERACILLIN/TAZOBACTAM 4.5 GM/NS 100 ML IVPB IV SCH ×6 (01:57→19:16)
[2016-11-27] MEDS: RT-ALBUTEROL/IPRATROPIUM 3 ML (DUONEB) VIAL INH SCH ×6 (02:38→21:22)
[2016-11-27] MEDS: HYDROmorphone (DILAUDID) 2 MG/ML VIAL IVP PRN ×4 (03:01→19:21)
[2016-11-27 04:49] LABS: BASOPHILS % (AUTO) 0 % (0-10); EOSINOPHILS % (AUTO) 0 % (0-10); LYMPHOCYTES # (AUTO) 0.2 X 10^3 (1.0-4.0); LYMPHOCYTES % (AUTO) 1 % (12-44); MEAN CORPUSCULAR HEMOGLOBIN 31 PG (25-34); MEAN CORPUSCULAR HGB CONC 32 G/DL (32-36); MEAN CORPUSCULAR VOLUME 98 FL (80-99); MEAN PLATELET VOLUME 9.5 FL (7.4-10.4); MONOCYTES # (AUTO) 0.3 X 10^3 (0.0-1.0); MONOCYTES % (AUTO) 2 % (0-12); NEUTROPHILS # (AUTO) 11.3 X 10^3 (1.8-7.8); NEUTROPHILS % (AUTO) 96 % (42-75); PLATELET COUNT 167 10^3/uL (130-400); RED BLOOD COUNT 3.42 10^6/uL (4.35-5.85); RED CELL DISTRIBUTION WIDTH 15.7 % (10.0-14.5); WHITE BLOOD COUNT 11.7 10^3/uL (4.3-11.0)
[2016-11-27 05:09] LABS: ANION GAP 13 MMOL/L (5-14); BLOOD UREA NITROGEN 27 MG/DL (7-18); BUN/CREATININE RATIO 29; CALCIUM 9.1 MG/DL (8.5-10.1); CARBON DIOXIDE 21 MMOL/L (21-32); CHLORIDE 105 MMOL/L (98-107); CREATININE SERUM 0.94 MG/DL (0.60-1.30); GFR ESTIMATED > 60; GLUCOSE 194 MG/DL (70-105); MAGNESIUM 1.8 MG/DL (1.8-2.4); PHOSPHORUS 4.7 MG/DL (2.3-4.7); POTASSIUM 4.5 MMOL/L (3.6-5.0); SODIUM 139 MMOL/L (135-145)
[2016-11-27] MEDS: MAGNESIUM 1 GM/100 ML IVPB 100 ML IV SCH (05:26)
[2016-11-27] MEDS: POTASSIUM CL 10MEQ/50ML IVPB 50 ML IV SCH (05:26)
[2016-11-27] MEDS: KCL 20 MEQ TAB (K-DUR) PO SCH (05:26)
[2016-11-27] MEDS: LACTATED RINGERS 1,000 ML IV SCH ×4 (05:31→21:05)
[2016-11-27] MEDS: TRIM/SULFAMETH 160/800 (SEPTRA DS) TAB PO SCH ×2 (06:22→17:54)
[2016-11-27] MEDS: CATHETER FLUSH 10 ML SYR IV SCH ×3 (06:22→21:11)
[2016-11-27] MEDS: methylPREDNISolone 125 MG (Solu-MEDROL) VIAL IVP SCH ×3 (06:22→21:09)
--- NOTE | 2016-11-27 07:17 | Diagnostic Imaging Report ---
INDICATION: Pneumonia. FINDINGS: Upright portable chest shows normal heart size and vascularity. There has been slight clearing of the interstitial infiltrate in the left lung since 11/26/2016. There is persistent dense consolidated infiltrate in the right lower lobe with possible right-sided effusion. IJ line tip is in the SVC. IMPRESSION: Slight improved aeration of the left lung infiltrate, otherwise stable chest. Dictated by: Dictated on workstation # [id number]
--- NOTE | 2016-11-27 08:26 | Pulmonary Consultation ---
History of Present Illness History of Present Illness Date of Consultation 11/27/16 08:20 Time Seen by Provider: 08:20 Date of Admission History of Present Illness 66yo with hx of stage IIIA squamous cell lung cancer, RLL lobectomy and emphysema and recent radiation pneumonitis. Pt has been on prednisone for treatment. Pt presented to ED secondary to severe hypoxia and Sp02 60% on 3 liters NC. He also had fever of 101. He has been on BiPAP for acute respiratory failure. I am consulted for pulmonary management. Allergies and Home Medications Allergies Coded Allergies: No Known Drug Allergies (Unverified , 01/29/16) Home Medications Amitriptyline HCl 10 Mg Tablet, 40 MG PO HS, (Reported) TAKES 4 (10MG) TABLETS Aspirin 81 Mg Tab.chew, 81 MG PO DAILY, (Reported) Cetirizine HCl 10 Mg Tablet, 10 MG PO DAILY, (Reported) Diclofenac Sod 100 Mg Tab, 100 MG PO BID, (Reported) Hydrocodone/Acetaminophen 1 Each Tablet, 2 TAB PO 2000, (Reported) Levocetirizine Dihydrochloride 5 Mg Tablet, 5 MG PO HS, (Reported) Multivitamin 1 Each Tablet, 1 TAB PO DAILY, (Reported) Olmesartan Medoxomil 20 Mg Tablet, 20 MG PO HS, (Reported) [place]-3 Acid Ethyl Esters 1 Gm Capsule, 2 GM PO HS, (Reported) TAKES 2 (1 GM) CAPSULES Omeprazole 40 Mg Capsule.dr, 40 MG PO DAILY PRN for HEARTBURN, (Reported) Prednisone 20 Mg Tab, 25 MG PO DAILY, (Reported) TAKES 1 & 1/4 (20MG) TABLET Rosuvastatin Calcium 20 Mg Tablet, 20 MG PO HS, (Reported) Sertraline HCl 100 Mg Tablet, 100 MG PO DAILY, (Reported) Zolpidem Tartrate 10 Mg Tablet, 10 MG PO HS, (Reported) Past Mepkmqg-Isavlv-Xbrxdj Hx Patient Social History Alcohol Use: Denies Use Number of Drinks Today: AA Alcohol Beverage of Choice: Beer Recreational Drug Use: No Smoking Status: Former Smoker Type Used: Cigarettes Former Smoker, Quit: Sep 26, 2016 2nd Hand Smoke Exposure: No Recent Foreign Travel: No Contact w/Someone Who Travel: No Recent Infectious Disease Expo: No Recent Hopitalizations: No Immunizations Up To Date Tetanus Booster (TDap): Unknown Date of Pneumonia Vaccine: Jan 02, 2013 Date of Influenza Vaccine: Jan 22, 2016 Seasonal Allergies Seasonal Allergies: No Surgeries History of Surgeries: Yes (BACK SX X3, NECK SX, LEFT KNEE SCOPE X2, ) Surgeries: Lobectomy Respiratory History of Respiratory Disorde: Yes Respiratory Disorders: Pneumonia, COPD, Emphysema Cardiovascular History of Cardiac Disorders: Yes Cardiac Disorders: Hypertension Neurological History of Neurological Disord: No (BURNING SENSATIONS (CURRENTLY SEEING A NUEROLOGIST) POSS. 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) Cancer: Lung, Skin Did You Recieve Any Treatments: Yes Type of Tx Receive: Chemotherapy, Radiation Psychosocial History of Psychiatric Problem: Yes Behavioral Health Disorders: Depression Integumentary History of Skin or Integumenta: Yes Skin/Integumentary Disorders: Psoriasis Blood Transfusions History of Blood Disorders: No Adverse Reaction to a Blood Tr: No Reviewed Nursing Assessment Reviewed/Agree w Nursing PMH: Yes Family Medical History Significant Family History: Cancer (both parents of lung CA) Family Medial History: Eastland's disease 19 FATHER Arthritis 19 FATHER 19 MOTHER G8 BROTHER G8 SISTER Hypertension 19 FATHER Myocardial infarction 19 FATHER Neoplasm 19 FATHER (LUNG CA) 19 MOTHER (LUNG CA) Respiratory disorder 19 FATHER (lung ca, COPD) 19 MOTHER (lung ca) Thyroid disease 19 MOTHER Review of Systems Time Seen by Provider: 07:23 Constitutional: Fever, Sweats, Weakness Eyes: No: Pain, Vision change, Conjunctivae inflammation, Eyelid inflammation, Other, Redness ENT: No: Ear pain, Ear discharge, Nose pain, Nose discharge, Nose congestion, Mouth pain, Mouth swelling, Throat pain, Throat swelling, Other Respiratory: Cough, Dry, Shortness of breath, SOB with excertion, No: Wheezing , Hemoptysis Cardiovascular: Palpitations, Orthopnea, Paroxysmal Noc. Dyspnea Gastrointestinal: No: Nausea, Vomiting, Abdominal Pain, Diarrhea, Constipation , Melena, Hematochezia, Other Genitourinary: No Dysuria, No Frequency, No Incontinence, No Hematuria, No Retention, No Other Neurological: Weakness, Confusion Exam Exam Vital Signs Date Time Temp Pulse Resp B/P (MAP) Pulse Ox O2 Delivery O2 Flow Rate FiO2 11/27/16 07:40 99 14 91 80.00 11/27/16 06:18 95 18 92 80.00 11/27/16 06:00 96 22 94/57 89 NIV Bilevel 80.00 11/27/16 05:00 89 19 94/47 89 NIV Bilevel 80.00 11/27/16 04:28 102 18 90 80.00 11/27/16 04:00 97.0 11/27/16 04:00 NIV Bilevel 80 11/27/16 04:00 91 15 93/56 91 NIV Bilevel 80.00 11/27/16 03:00 107 19 93/55 87 NIV Bilevel 80.00 11/27/16 02:40 NIV Bilevel 80 11/27/16 02:40 NIV Bilevel 80.00 11/27/16 02:38 105 22 97 80.00 11/27/16 02:00 100 15 92/67 93 NIV Bilevel 100.00 11/27/16 01:00 102 11/27/16 01:00 103 20 91/69 92 NIV Bilevel 100.00 11/27/16 00:40 116 23 90 100.00 11/27/16 00:00 NIV Bilevel 100 11/27/16 00:00 112 20 105/73 88 NIV Bilevel 100.00 11/27/16 00:00 98.1 11/26/16 23:00 115 18 101/63 90 NIV Bilevel 100.00 11/26/16 22:00 115 14 110/60 91 NIV Bilevel 100.00 11/26/16 21:40 NIV Bilevel 100 11/26/16 21:24 113 26 92 100.00 11/26/16 21:00 111 25 101/59 91 NIV Bilevel 70.00 11/26/16 20:00 NIV Bilevel 75 11/26/16 20:00 98.4 109 18 102/67 92 NIV Bilevel 70.00 11/26/16 19:20 106 24 95 11/26/16 19:00 102 13 77/51 92 NIV Bilevel 70.00 11/26/16 19:00 100 11/26/16 18:00 102 17 96/52 94 NIV Bilevel 70.00 11/26/16 17:18 90 70.00 11/26/16 17:00 104 23 83/49 93 NIV Bilevel 70.00 11/26/16 16:41 115 31 100 60.00 11/26/16 16:00 NIV Bilevel 70 11/26/16 16:00 NIV Bilevel 70.00 11/26/16 16:00 123 34 83/51 91 NIV Bilevel 70.00 11/26/16 15:00 128 31 82/58 100 NIV Bilevel 100.00 11/26/16 14:57 128 40 100 80.00 11/26/16 14:30 NIV Bilevel 100.00 11/26/16 14:08 96 Vapotherm 40.00 100 11/26/16 14:00 125 30 83/48 95 Vapotherm 100.00 40.00 11/26/16 13:00 133 20 92/58 95 Vapotherm 100.00 40.00 11/26/16 13:00 133 11/26/16 12:30 97.9 Vapotherm 100.00 40.00 11/26/16 12:30 Vapotherm 100 11/26/16 12:01 70 16 90 Vapotherm 11/26/16 11:09 Vapotherm 18.00 100 11/26/16 09:51 101.3 11/26/16 09:39 101.3 130 22 123/75 88 Nasal Cannula 11/26/16 09:31 91 Nasal Cannula 8.00 General Appearance: Moderate Distress, Obese HEENT: PERRL/EOMI Respiratory: Other (on bi-pap) Cardiovascular: Regular Rate, Rhythm, Bradycardia Capillary Refill: Less Than 3 Seconds Gastrointestinal: normal bowel sounds, non tender, soft, no organomegaly, no pulsatile mass Extremity: Non Tender, No Calf Tenderness, No Pedal Edema Neurologic/Psychiatric: Alert, Oriented x3 Skin: Normal Color, Warm/Dry Lymphatic: No Adenopathy Results Lab Laboratory Tests 11/26/16 09:30 11/27/16 04:40 Assessment/Plan Assessment/Plan Pneumonia -zosyn add vanco -await cultures -IVF Acute respiratory failure -BiPAP PRN -steroids Radiation pneumonitis Squamous cell cancer RLL -Has been under going chemoradiation 255 Clinical Quality Measures DVT/VTE Risk/Contraindication: Risk Factor Score Per Nursin RFS Level Per Nursing on Admit: 2=Moderate BRITTANY LANIER DO Nov 27, 2016 08:25
[2016-11-27] MEDS ORDERED: PHARMACY TO DOSE IV SCH (08:45)
[2016-11-27] MEDS ORDERED: VANCOMYCIN 1500 MG/NS 500 ML IVPB IV NR ×2 (09:00)
[2016-11-27] MEDS: ENOXAPARIN 40 MG/0.4 ML (LOVENOX) SYR SC SCH (09:28)
--- NOTE | 2016-11-27 10:50 | History & Physical-Hospitalist ---
HPI History of Present Illness: HPI/Chief Complaint Mr. nichole is a 66-year-old white male with known right sided squamous cell carcinoma of the lung stage IIIa received chemotherapy and radiation therapy. Apparently his last dose of chemotherapy was in September and treatment had been complicated by radiation pneumonitis for which she had been on prednisone and continuing a taper. He is feeling well up until Tuesday when he started having chills and nonproductive cough with headache. The symptoms got progressively worse as did shortness of breath. He has an O2 sat monitor at home and apparently was in the 70s despite oxygen feeling quite short of breath the day of his admission prompting an ER visit. There he was started on O2 via Vapotherm high-dose but then required BiPAP for respiratory distress. Upon my arrival he had the BiPAP mask on looking comfortable without tachypnea maintaining saturations 95-98 percent on high flow oxygen. He's had a scant amount of hemoptysis for the past several days denying any other color. Next inspection at bedside revealed dark red or rust-colored scant sputum. No one else is been sick that he is aware of in regards to exposure history and he has had no recent travel history. He has no known tick exposure this season. Date Seen 11/27/16 Time Seen by Provider: 07:30 Attending Physician Xochilt Alaniz DO PCP Alan Garcia DO Referring Physician Date of Admission Nov 26, 2016 at 11:00 Home Medications & Allergies Home Medications Reviewed patient Home Medication Reconciliation Form Allergies Allergies Coded Allergies No Known Drug Allergies ([id number]/27/16) Past Jnbungw-Sfqanf-Menrsu Hx Patient Social History Alcohol Use: Denies Use Number of Drinks Today: AA Alcohol Beverage of Choice: Beer Recreational Drug Use: No Smoking Status: Former Smoker Former Smoker, Quit: Sep 26, 2016 Type Used: Cigarettes 2nd Hand Smoke Exposure: No Physical Abuse Screen: No Sexual Abuse: No Recent Foreign Travel: No Contact w/other who traveled: No Recent Hopitalizations: No Recent Infectious Disease Expo: No Immunizations Up To Date Tetanus Booster (TDap): Unknown Date of Pneumonia Vaccine: Jan 02, 2013 Date of Influenza Vaccine: Jan 22, 2016 Seasonal Allergies Seasonal Allergies: No Surgeries Yes (BACK SX X3, NECK SX, LEFT KNEE SCOPE X2, ) Lobectomy Respiratory Yes COPD Cardiovascular Yes Hypertension Neurological No (BURNING SENSATIONS (CURRENTLY SEEING A NUEROLOGIST) POSS. 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) Lung, Skin Did You Recieve Any Treatments: Yes Type of Treatment: Chemotherapy, Radiation Psychosocial History of Psychiatric Problem: Yes Behavioral Health Disorders: Depression Integumentary History of Skin or Integumenta: Yes Skin/Integumentary Disorders: Psoriasis Blood Transfusions History of Blood Disorders: No Adverse Reaction to a Blood Tr: No Reviewed Nursing Assessment Reviewed/Agree w Nursing PMH: Yes Family Medical History Significant Family History: Cancer (both parents of lung CA) Family Hx: Osmar's disease 19 FATHER Arthritis 19 FATHER 19 MOTHER G8 BROTHER G8 SISTER Hypertension 19 FATHER Myocardial infarction 19 FATHER Neoplasm 19 FATHER (LUNG CA) 19 MOTHER (LUNG CA) Respiratory disorder 19 FATHER (lung ca, COPD) 19 MOTHER (lung ca) Thyroid disease 19 MOTHER Review of Systems Constitutional: No no symptoms reported, see HPI, chills, No diaphoresis, No dizziness, fever, No malaise, weakness, No weight gain, No weight loss, No other Respiratory: see HPI, cough, dyspnea on exertion, hemoptysis, short of breath, wheezing Gastrointestinal: no symptoms reported Genitourinary: no symptoms reported Physical Exam Physical Exam Vital Signs Vital Sign - Last 12Hours 11/26/16 11/26/16 11/26/16 09:31 09:39 11:09 Temp 101.3 Pulse 130 Resp 22 B/P (MAP) 123/75 Pulse Ox 91 O2 Delivery Nasal Cannula O2 Flow Rate 8.00 FiO2 100 Capillary Refill : Less Than 3 Seconds General Appearance: Anxious, Mild Distress HEENT: PERRL/EOMI, Normal ENT Inspection, Pharynx Normal Respiratory: No Accessory Muscle Use, Other (crease breath sounds in both bases with inspiratory dry rales throughout and mild expiratory wheeze bilaterally) Cardiovascular: Regular Rate, Rhythm, No Edema, No Gallop, No JVD, No Murmur, Normal Peripheral Pulses Gastrointestinal: Normal Bowel Sounds, No Organomegaly, No Pulsatile Mass, Non Tender, Soft Extremity: Normal Inspection, Normal Range of Motion, Non Tender, No Calf Tenderness, No Pedal Edema Neurologic/Psychiatric: Alert, Oriented x3 Skin: Pallor (mild) Results Results/Procedures Lab Laboratory Tests 11/26/16 09:30 11/27/16 04:40 Assessment/Plan Admission Diagnosis 1. Probable left lower lobe pneumonia with secondary respiratory failure continue broad-spectrum antibiotic coverage anti-inflammatory and bronchodilator therapy with BiPAP as needed. 2. Stage IIIa squamous cell carcinoma the right lung status post right lower lobectomy via VAT with subsequent radiation and chemotherapy. 3. Radiation pneumonitis 4. Sepsis most likely not severe. The patient systolic pressures have been somewhat low but there is no evidence for end organ damage. In review of previous medical records he usually runs around 110 systolic range we'll repeat a CMP and as long as renal function remains stable we will continue IV fluids and hold vasopressor therapy. If there is evidence for any decline we'll start Levophed. Clinical Quality Measures DVT/VTE Risk/Contraindication: Risk Factor Score Per Nursin RFS Level Per Nursing on Admit: 2=Moderate KATELIN SANCHEZ MD Nov 27, 2016 10:50
[2016-11-27 11:45] LABS: ALANINE AMINOTRANSFERASE 29 U/L (0-55); ANION GAP 13 MMOL/L (5-14); ASPARTATE AMINO TRANSFERASE 35 U/L (5-34); BILIRUBIN,TOTAL 0.3 MG/DL (0.1-1.0); BLOOD UREA NITROGEN 27 MG/DL (7-18); BUN/CREATININE RATIO 32; CARBON DIOXIDE 21 MMOL/L (21-32); CHLORIDE 105 MMOL/L (98-107); CREATININE SERUM 0.84 MG/DL (0.60-1.30); GFR ESTIMATED > 60; GLUCOSE 215 MG/DL (70-105); POTASSIUM 3.9 MMOL/L (3.6-5.0); SODIUM 139 MMOL/L (135-145); TOTAL PROTEIN 5.6 GM/DL (6.4-8.2)
[2016-11-27] MEDS: LEVOFLOXACIN 750 MG/150 ML IV 150 ML IV SCH (14:23)
[2016-11-27] MEDS: LORazepam INJ 2 MG/ML (ATIVAN) VIAL IVP PRN (15:05)
--- NOTE | 2016-11-27 16:53 | Oncology Progress Note ---
Subjective Time Seen by Provider: 16:00 Subjective/Events-last exam Slightly better this morning and was able to get off the Bi-PAP for 3 hrs and had a meal But worse this afternoon. He is now back on Bi-PAP. He is also on low dose Levophed for hypotension/sepsis. No more fever Data Review Labs Laboratory Tests 11/27/16 04:40 11/27/16 11:21 Laboratory Tests 11/26/16 09:30: Red Blood Count 4.05L, Hemoglobin 12.3L, Hematocrit 39L, Red Cell Distribution Width 15.9H, Neutrophils (%) (Auto) 86H, Lymphocytes (%) (Auto) 5L, Neutrophils # (Auto) 9.4H, Lymphocytes # (Auto) 0.5L, Blood Urea Nitrogen 29H, Glucose Level 126H, Alkaline Phosphatase 138H 11/26/16 09:52: Arterial Blood Partial Pressure O2 67L, Arterial Blood Oxygen Saturation 93L 11/26/16 09:57: Lactic Acid Level 2.02*H 11/26/16 12:55: Lactic Acid Level 2.33*H 11/27/16 04:40: White Blood Count 11.7H, Red Blood Count 3.42L, Hemoglobin 10.6L, Hematocrit 34L , Red Cell Distribution Width 15.7H, Neutrophils (%) (Auto) 96H, Lymphocytes (% ) (Auto) 1L, Neutrophils # (Auto) 11.3H, Lymphocytes # (Auto) 0.2L, Blood Urea Nitrogen 27H, Glucose Level 194H 11/27/16 09:40: Lactic Acid Level 3.34*H 11/27/16 11:21: Blood Urea Nitrogen 27H, Glucose Level 215H, Aspartate Amino Transf (AST/SGOT) 35H, Total Protein 5.6L, Albumin 3.0L 11/27/16 12:07: Lactic Acid Level 3.66*H Radiology Impression: 1. New diffuse groundglass opacities throughout the left lung could be seen with pneumonia or an inflammatory process. Additional opacities within the right lung base could represent atelectasis and/or pneumonia. 2. Emphysema. 3. Stable postoperative changes. Physical Exam Vital Signs Vital Sign - Last 12Hours 11/26/16 11/26/16 11/26/16 09:31 09:39 11:09 Temp 101.3 Pulse 130 Resp 22 B/P (MAP) 123/75 Pulse Ox 91 O2 Delivery Nasal Cannula O2 Flow Rate 8.00 FiO2 100 Capillary Refill : Less Than 3 Seconds General Appearance: No Apparent Distress, Other (on BiPAP FiO2 40%) HEENT: PERRL/EOMI Neck: Supple (Right IJ deep line), Other Cardiovascular: Regular Rate, Rhythm, Tachycardia Gastrointestinal: Non Tender, Soft Extremity: Non Tender, No Calf Tenderness, No Pedal Edema Neurologic/Psychiatric: Alert, Oriented x3 Impression & Plan Impression & Plan IMP: 1. Severe hypoxia most likely due to combination of radiation pneumonitis and infectious pneumonia with fever. 2. 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 3. S/p radiation treatment 09/29/16 complicated with radiation pneumonitis on Prednisone taper at 25mg/d before this admission. 4. Obese 5. Emphysema 6. Pain control issues. 7. Hypotension/sepsis on low dose Levophed Plan: 1. IV steroid Solumedrol 125mg q 8hrs for 48-72 hrs and if improved, convert to PO prednisone 2. Agree with current IV Vanco and Zosyn. F/u culture results and sensitivities. 3. Empirically Bactrim DC for PCP prophylaxis since pt has been on high dose steroid treatment for a while and h/o radiation of the lung. 4. Agree with current ICU and supportive care. 5. Pt is full code. 6. Morphine for anxiety of SOB and pain. Clinical Quality Measures DVT/VTE Risk/Contraindication: Risk Factor Score Per Nursin RFS Level Per Nursing on Admit: 2=Moderate FLACO SANDERS MD Nov 27, 2016 16:53
[2016-11-27] MEDS ORDERED: ZOLPIDEM 5 MG (AMBIEN) TAB PO PRN (21:00)
[2016-11-27] MEDS: VANCOMYCIN 1250 MG/NS 250 ML IVPB IV SCH ×2 (21:07)
[2016-11-27] MEDS: AMITRIPTYLINE 10 MG (ELAVIL) TAB PO SCH (21:11)
[2016-11-28] VITALS (36 sets, daily range): BP systolic 96–135; BP diastolic 59–89
[2016-11-28] MEDS: RT-ALBUTEROL/IPRATROPIUM 3 ML (DUONEB) VIAL INH SCH ×6 (01:45→21:31)
[2016-11-28] MEDS: PIPERACILLIN/TAZOBACTAM 4.5 GM/NS 100 ML IVPB IV SCH ×6 (01:54→18:04)
[2016-11-28] MEDS: HYDROmorphone (DILAUDID) 2 MG/ML VIAL IVP PRN ×5 (03:13→21:39)
[2016-11-28] MEDS: LACTATED RINGERS 1,000 ML IV SCH ×3 (03:32→18:04)
[2016-11-28 05:09] LABS: BASOPHILS % (AUTO) 0 % (0-10); EOSINOPHILS % (AUTO) 0 % (0-10); LYMPHOCYTES # (AUTO) 0.1 X 10^3 (1.0-4.0); LYMPHOCYTES % (AUTO) 1 % (12-44); MEAN CORPUSCULAR HEMOGLOBIN 31 PG (25-34); MEAN CORPUSCULAR HGB CONC 32 G/DL (32-36); MEAN CORPUSCULAR VOLUME 96 FL (80-99); MEAN PLATELET VOLUME 9.7 FL (7.4-10.4); MONOCYTES # (AUTO) 0.7 X 10^3 (0.0-1.0); MONOCYTES % (AUTO) 5 % (0-12); NEUTROPHILS # (AUTO) 14.4 X 10^3 (1.8-7.8); NEUTROPHILS % (AUTO) 94 % (42-75); PLATELET COUNT 142 10^3/uL (130-400); RED BLOOD COUNT 2.96 10^6/uL (4.35-5.85); RED CELL DISTRIBUTION WIDTH 15.5 % (10.0-14.5); WHITE BLOOD COUNT 15.2 10^3/uL (4.3-11.0)
[2016-11-28 05:27] LABS: ANION GAP 8 MMOL/L (5-14); BLOOD UREA NITROGEN 19 MG/DL (7-18); BUN/CREATININE RATIO 27; CALCIUM 8.9 MG/DL (8.5-10.1); CARBON DIOXIDE 25 MMOL/L (21-32); CHLORIDE 104 MMOL/L (98-107); GFR ESTIMATED > 60; GLUCOSE 156 MG/DL (70-105); MAGNESIUM 1.7 MG/DL (1.8-2.4); PHOSPHORUS 2.5 MG/DL (2.3-4.7); POTASSIUM 4.3 MMOL/L (3.6-5.0); SODIUM 137 MMOL/L (135-145)
[2016-11-28] MEDS: MAGNESIUM 1 GM/100 ML IVPB 100 ML IV SCH ×3 (05:33→06:38)
[2016-11-28] MEDS: POTASSIUM CL 10MEQ/50ML IVPB 50 ML IV SCH (05:33)
[2016-11-28] MEDS: KCL 20 MEQ TAB (K-DUR) PO SCH (05:36)
[2016-11-28] MEDS: CATHETER FLUSH 10 ML SYR IV SCH ×3 (05:42→21:26)
[2016-11-28] MEDS: methylPREDNISolone 125 MG (Solu-MEDROL) VIAL IVP SCH ×3 (05:42→21:25)
[2016-11-28] MEDS: TRIM/SULFAMETH 160/800 (SEPTRA DS) TAB PO SCH (07:33)
--- NOTE | 2016-11-28 07:53 | Diagnostic Imaging Report ---
INDICATION: Pneumonia Portable chest shows cardiomegaly with normal vascularity. There has been improved aeration of the left lung with minimal residual infiltrate remaining. Right lung is clear other than basilar atelectasis. No effusions are seen. IMPRESSION: Improving left lung infiltrate when compared to the prior study from 11/27/16. Dictated by: Dictated on workstation # [id number]
[2016-11-28] MEDS: VANCOMYCIN 1250 MG/NS 250 ML IVPB IV SCH ×4 (08:07→21:25)
[2016-11-28] MEDS: ENOXAPARIN 40 MG/0.4 ML (LOVENOX) SYR SC SCH (08:07)
--- NOTE | 2016-11-28 08:34 | OPERATIVE REPORT ---
DATE OF SERVICE: PREOPERATIVE DIAGNOSES: 1. Hypertension. 2. Hypoxia. 3. Venous insufficiency. 4. Lung cancer. POSTOPERATIVE DIAGNOSES: 1. Hypertension. 2. Hypoxia. 3. Venous insufficiency. 4. Lung cancer. PROCEDURE: Insertion of triple lumen catheter in the right IJ with ultrasound guidance. SURGEON: Dr. Potts. RNP: None. ANESTHESIA: Just local lidocaine. BLOOD LOSS: Scant. FLUIDS: Minimal. POSTOPERATIVE CONDITION: Stable. INDICATION FOR PROCEDURE: The patient is a 66-year-old male who was admitted with shortness of breath, found to be hypoxic, possible pneumonia with some hemoptysis, placed on BiPAP and then had worsening blood pressures, was going to need Levophed and needed a central line for Levophed, history of venous insufficiency. They never placed a port for his lung cancer chemotherapy treatments and he has poor veins, but he needs a central line for his Levophed. FINDINGS: The patient had a right IJ placed with ultrasound guidance. PROCEDURE NOTE: After informed consent was obtained, the patient was in his bed, sterilely prepped and draped in normal fashion. Local lidocaine was used to infiltrate the skin in the neck. Then using ultrasound, I found the right IJ and then watched the needle go into the right IJ, cannulated on the first attempt. Good flush of blood and then removed the syringe, then placed a guidewire down the needle using the Seldinger technique, went in easily. Checked again with ultrasound, I could see the guidewire going down the IJ. Removed the needle and then made a stab incision along the guidewire with a #11 blade and then over the guidewire placed a dilator using the Seldinger technique, went in easily. I then removed the dilator and then placed the catheter over the guidewire using the Seldinger technique, again went in easily. I then removed the guidewire, then easily aspirated and flushed in all 3 ports. Sutured this in place with a 3-0 silk suture. The area was then cleaned and dried, and the nurses put in a sterile dressing. The patient tolerated the procedure. Stat chest x-ray ordered, it showed good position of the central line and did not appear to show pneumothorax. We will make sure we get final reading from radiology. Job ID: [id number] DocumentID: [id number] Dictated Date: 11/26/2016 20:29:37 [employer] Date: 11/27/2016 16:08:47 Dictated By: CASIMIRO POTTS DO
[2016-11-28] MEDS: SERTRALINE 100 MG (ZOLOFT) TAB PO SCH (09:33)
--- NOTE | 2016-11-28 10:09 | Progress Note-Hospitalist ---
Subjective HPI/CC On Admission Date Seen by Provider: Nov 28, 2016 Time Seen by Provider: 09:00 Mr. nichole is a 66-year-old white male with known right sided squamous cell carcinoma of the lung stage IIIa received chemotherapy and radiation therapy. Apparently his last dose of chemotherapy was in September and treatment had been complicated by radiation pneumonitis for which she had been on prednisone and continuing a taper. He is feeling well up until Tuesday when he started having chills and nonproductive cough with headache. The symptoms got progressively worse as did shortness of breath. He has an O2 sat monitor at home and apparently was in the 70s despite oxygen feeling quite short of breath the day of his admission prompting an ER visit. There he was started on O2 via Vapotherm high-dose but then required BiPAP for respiratory distress. Upon my arrival he had the BiPAP mask on looking comfortable without tachypnea maintaining saturations 95-98 percent on high flow oxygen. He's had a scant amount of hemoptysis for the past several days denying any other color. Next inspection at bedside revealed dark red or rust-colored scant sputum. No one else is been sick that he is aware of in regards to exposure history and he has had no recent travel history. He has no known tick exposure this season. Subjective/Events-last exam Mr. nichole is still requiring BiPAP to maintain consistent saturations greater than 90 percent. He denies chest pain with stable cough and scant sputum production. He denies chills or fever with improvement in appetite. He did not yet receive Zoloft this morning and was fighting his mask a little anxious this morning. Objective Exam Vital Signs Vital Sign - Last 12Hours 11/26/16 11/26/16 11/26/16 09:31 09:39 11:09 Temp 101.3 Pulse 130 Resp 22 B/P (MAP) 123/75 Pulse Ox 91 O2 Delivery Nasal Cannula O2 Flow Rate 8.00 FiO2 100 Capillary Refill : Less Than 3 Seconds General Appearance: Anxious, Chronically ill, Mild Distress Respiratory: Other (breast sounds on the right with a few rales left sided rales dry sounding with otherwise normal breath sounds in the left mid and upper lung horn decreased breath sounds left base stable from yesterday.) Cardiovascular: Regular Rate, Rhythm, No Edema, No Gallop, No JVD, No Murmur, Normal Peripheral Pulses Gastrointestinal: Normal Bowel Sounds, No Organomegaly, No Pulsatile Mass, Non Tender, Soft Extremity: Normal Capillary Refill, Other (1+ edema of the upper and lower extremities) Results/Procedures Lab Laboratory Tests 11/27/16 11:21 11/28/16 04:58 Assessment/Plan Assessment and Plan Assess & Plan/Chief Complaint 1. Left-sided pneumonia with sepsis with x-ray improvement improvement in urine output and mean arterial pressures with stable organ function. The patient remains significantly hypoxic secondary to right lower lobectomy radiation pneumonitis as well as possible underlying COPD from past tobaccoism. Ventilatory status on BiPAP remains somewhat tenuous we'll continue ICU monitoring and current antibiotic and pulmonary therapy. 2. Reported stage IIIa squamous cell carcinoma of the lung. KATELIN SANCHEZ MD Nov 28, 2016 10:09
[2016-11-28] MEDS: LORazepam INJ 2 MG/ML (ATIVAN) VIAL IVP PRN ×2 (12:12→21:39)
[2016-11-28] MEDS: LEVOFLOXACIN 750 MG/150 ML IV 150 ML IV SCH (12:16)
--- NOTE | 2016-11-28 14:42 | Oncology Progress Note ---
Subjective Time Seen by Provider: 14:20 Subjective/Events-last exam Anxiety, desaturation to 70-80% with minimal movement, not able to get off Bi- PAP today Feeling hungry but not be able to take off Bi-PAP and eat due to desaturation. Hb drop from 11 on admission to 9.1 today, most likely due to acute illness, IVF dilution and frequent blood draws. Weight up 10 kg over last 2 days and I/O positive balance of 5400 cc. No fever. CXR today showed some improvement of infiltration on the left side. Data Review Labs Laboratory Tests 11/28/16 04:58 Laboratory Tests 11/26/16 09:30: Red Blood Count 4.05L, Hemoglobin 12.3L, Hematocrit 39L, Red Cell Distribution Width 15.9H, Neutrophils (%) (Auto) 86H, Lymphocytes (%) (Auto) 5L, Neutrophils # (Auto) 9.4H, Lymphocytes # (Auto) 0.5L, Blood Urea Nitrogen 29H, Glucose Level 126H, Alkaline Phosphatase 138H 11/26/16 09:52: Arterial Blood Partial Pressure O2 67L, Arterial Blood Oxygen Saturation 93L 11/26/16 09:57: Lactic Acid Level 2.02*H 11/26/16 12:55: Lactic Acid Level 2.33*H 11/27/16 04:40: White Blood Count 11.7H, Red Blood Count 3.42L, Hemoglobin 10.6L, Hematocrit 34L , Red Cell Distribution Width 15.7H, Neutrophils (%) (Auto) 96H, Lymphocytes (% ) (Auto) 1L, Neutrophils # (Auto) 11.3H, Lymphocytes # (Auto) 0.2L, Blood Urea Nitrogen 27H, Glucose Level 194H 11/27/16 09:40: Lactic Acid Level 3.34*H 11/27/16 11:21: Blood Urea Nitrogen 27H, Glucose Level 215H, Aspartate Amino Transf (AST/SGOT) 35H, Total Protein 5.6L, Albumin 3.0L 11/27/16 12:07: Lactic Acid Level 3.66*H 11/28/16 04:58: White Blood Count 15.2H, Red Blood Count 2.96L, Hemoglobin 9.1L, Hematocrit 28L , Red Cell Distribution Width 15.5H, Neutrophils (%) (Auto) 94H, Lymphocytes (% ) (Auto) 1L, Neutrophils # (Auto) 14.4H, Lymphocytes # (Auto) 0.1L, Blood Urea Nitrogen 19H, Glucose Level 156H, Magnesium Level 1.7L Laboratory Tests 11/28/16 04:58 Radiology Impression: 1. New diffuse groundglass opacities throughout the left lung could be seen with pneumonia or an inflammatory process. Additional opacities within the right lung base could represent atelectasis and/or pneumonia. 2. Emphysema. 3. Stable postoperative changes. Physical Exam Vital Signs Vital Sign - Last 12Hours 11/26/16 11/26/16 11/26/16 09:31 09:39 11:09 Temp 101.3 Pulse 130 Resp 22 B/P (MAP) 123/75 Pulse Ox 91 O2 Delivery Nasal Cannula O2 Flow Rate 8.00 FiO2 100 Capillary Refill : Less Than 3 Seconds General Appearance: Anxious HEENT: PERRL/EOMI Neck: Supple Respiratory: No Accessory Muscle Use, No Respiratory Distress, Other (on BiPAP FiO2 100%) Cardiovascular: Regular Rate, Rhythm, No Edema, No Gallop, Tachycardia Gastrointestinal: Non Tender, Soft Extremity: Non Tender, No Calf Tenderness, No Pedal Edema Neurologic/Psychiatric: Alert, Oriented x3 Impression & Plan Impression & Plan IMP: 1. Severe hypoxia most likely due to combination of radiation pneumonitis and infectious pneumonia with fever. 2. 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 3. S/p radiation treatment 09/29/16 complicated with radiation pneumonitis on Prednisone taper at 25mg/d before this admission. 4. Obese 5. Emphysema 6. Pain control issues. 7. Hypotension/sepsis, off Levophed since last night. BP in range 110s/80s today 8. Anemia, multifactors, acute illness, IVF and frequent blood draws. 9. Leukocytosis 2nd to steroid and infection. Plan: 1. Continue IV steroid Solumedrol 125mg q 8hrs for now. 2. Agree with current IV Vanco and Zosyn. F/u culture results and sensitivities. 3. Empirically Bactrim DC for PCP prophylaxis since pt has been on high dose steroid treatment for a while and h/o radiation of the lung. 4. Agree with current ICU and supportive care. 5. CXR showed improvement but clinical not in terms of O2 saturation and pt overall feeling and performance. For these reasons, I will give patient one unit of RBC with 20mg Lasix today. Watch for BP closely. 6. Pt is full code. 7. Morphine for anxiety of SOB and pain. Clinical Quality Measures DVT/VTE Risk/Contraindication: Risk Factor Score Per Nursin RFS Level Per Nursing on Admit: 2=Moderate FLACO SANDERS MD Nov 28, 2016 14:42
[2016-11-28] MEDS: FLUCONAZOLE 100 MG/50 ML 50 ML IV SCH (15:34)
[2016-11-28] MEDS ORDERED: diphenhydrAMINE 50 MG/ML INJ (BENADRYL) IM ONE (16:30)
[2016-11-28] MEDS ORDERED: FUROSEMIDE 40 MG/4 ML INJ (LASIX) IVP ONE (16:30)
[2016-11-28] MEDS: D5W IV SCH (17:55)
[2016-11-28] MEDS: TRIMETHO IV SCH (17:55)
[2016-11-28] MEDS: SULFAMETHOXAZOLE IV SCH (17:55)
--- NOTE | 2016-11-28 19:12 | Diagnostic Imaging Report ---
Indication: Bilateral lower extremity swelling EXAMINATIONS: Both grayscale and color Doppler imaging of the deep veins of the lower extremities were performed with waveform analysis. FINDINGS: There is no intraluminal filling defect. Normal continuous flow is seen throughout the deep venous systems of both legs, and there is normal response to augmentation. The deep veins compress normally. IMPRESSION: No ultrasound evidence of deep venous thrombosis in either lower extremity. Dictated by: Dictated on workstation # [id number]
[2016-11-28] MEDS ORDERED: TROUGH ORDER-PHARMACY XX NR (20:00)
[2016-11-28] MEDS ORDERED: NS (IVPB) 250 ML IV ONE (20:15)
[2016-11-28] MEDS ORDERED: FUROSEMIDE 40 MG/4 ML INJ (LASIX) ONE (20:29)
[2016-11-28] MEDS ORDERED: diphenhydrAMINE 50 MG/ML INJ (BENADRYL) IVP ONE (20:30)
[2016-11-28] MEDS: AMITRIPTYLINE 10 MG (ELAVIL) TAB PO SCH (21:25)
[2016-11-29] VITALS (36 sets, daily range): BP systolic 73–153; BP diastolic 40–104
[2016-11-29] MEDS: RT-ALBUTEROL/IPRATROPIUM 3 ML (DUONEB) VIAL INH SCH ×6 (01:51→22:43)
[2016-11-29] MEDS: D5W IV SCH (02:09)
[2016-11-29] MEDS: SULFAMETHOXAZOLE IV SCH (02:09)
[2016-11-29] MEDS: TRIMETHO IV SCH (02:09)
[2016-11-29] MEDS: PIPERACILLIN/TAZOBACTAM 4.5 GM/NS 100 ML IVPB IV SCH ×6 (02:10→18:35)
[2016-11-29] MEDS: LACTATED RINGERS 1,000 ML IV SCH (03:03)
[2016-11-29 04:25] LABS: BASOPHILS % (AUTO) 0 % (0-10); EOSINOPHILS % (AUTO) 0 % (0-10); LYMPHOCYTES # (AUTO) 0.2 X 10^3 (1.0-4.0); LYMPHOCYTES % (AUTO) 1 % (12-44); MEAN CORPUSCULAR HEMOGLOBIN 30 PG (25-34); MEAN CORPUSCULAR HGB CONC 32 G/DL (32-36); MEAN CORPUSCULAR VOLUME 94 FL (80-99); MEAN PLATELET VOLUME 10.3 FL (7.4-10.4); MONOCYTES # (AUTO) 0.6 X 10^3 (0.0-1.0); MONOCYTES % (AUTO) 5 % (0-12); NEUTROPHILS # (AUTO) 12.2 X 10^3 (1.8-7.8); NEUTROPHILS % (AUTO) 94 % (42-75); PLATELET COUNT 117 10^3/uL (130-400); RED BLOOD COUNT 3.24 10^6/uL (4.35-5.85); RED CELL DISTRIBUTION WIDTH 16.6 % (10.0-14.5)
[2016-11-29 04:25] LABS: ABG BASE EXCESS 0.1 MMOL/L (-2.5-2.5); ABG HCO3 25 MMOL/L (23-27); ABG OXYGEN SATURATION 83 % (94-100); ABG PCO2 44 MMHG (35-45); ABG PH 7.37 (7.37-7.43); ABG PO2 49 MMHG (79-93); ABG TCO2 26.3 MMOL/L (21.0-31.0)
[2016-11-29 04:30] LABS: ALLENS TEST YES-POS; PATIENT TEMP 97.3
[2016-11-29] MEDS: LORazepam INJ 2 MG/ML (ATIVAN) VIAL IVP PRN (04:30)
[2016-11-29] MEDS: CATHETER FLUSH 10 ML SYR IV SCH ×3 (04:30→21:40)
[2016-11-29 04:47] LABS: ANION GAP 13 MMOL/L (5-14); BLOOD UREA NITROGEN 22 MG/DL (7-18); BUN/CREATININE RATIO 31; CALCIUM 8.7 MG/DL (8.5-10.1); CARBON DIOXIDE 23 MMOL/L (21-32); CHLORIDE 102 MMOL/L (98-107); GFR ESTIMATED > 60; GLUCOSE 180 MG/DL (70-105); MAGNESIUM 1.8 MG/DL (1.8-2.4); PHOSPHORUS 2.6 MG/DL (2.3-4.7); SODIUM 138 MMOL/L (135-145)
[2016-11-29] MEDS: MAGNESIUM 1 GM/100 ML IVPB 100 ML IV SCH (05:00)
[2016-11-29] MEDS: POTASSIUM CL 10MEQ/50ML IVPB 50 ML IV SCH (05:00)
[2016-11-29] MEDS: KCL 20 MEQ TAB (K-DUR) PO SCH (05:00)
[2016-11-29] MEDS: HYDROmorphone (DILAUDID) 2 MG/ML VIAL IVP PRN ×4 (05:18→13:16)
[2016-11-29] MEDS: methylPREDNISolone 125 MG (Solu-MEDROL) VIAL IVP SCH (05:21)
--- NOTE | 2016-11-29 06:59 | Pulmonary Progress Note ---
Subjective Time Seen by Provider: 07:18 Subjective/Events-last exam Pt's respiratory status is worse today. Exam Exam Vital Signs Date Time Temp Pulse Resp B/P (MAP) Pulse Ox O2 Delivery O2 Flow Rate FiO2 11/29/16 06:00 112 25 101/69 95 NIV Bilevel 80.00 11/29/16 05:00 118 29 117/84 96 NIV Bilevel 80.00 11/29/16 04:00 NIV Bilevel 80 11/29/16 04:00 98 22 115/76 93 NIV Bilevel 80.00 11/29/16 03:50 99 24 95 80.00 11/29/16 03:05 NIV Bilevel 80.00 11/29/16 03:00 98 18 117/80 100 NIV Bilevel 100.00 11/29/16 02:00 104 21 111/72 100 NIV Bilevel 100.00 11/29/16 01:51 98 22 97 100.00 11/29/16 01:00 112 21 121/82 98 NIV Bilevel 100.00 11/29/16 01:00 112 11/29/16 00:00 98.6 11/29/16 00:00 101 18 108/73 91 NIV Bilevel 100.00 11/29/16 00:00 NIV Bilevel 100 11/28/16 23:51 100 24 92 100.00 11/28/16 23:23 98.4 102 20 98/64 92 NIV Bilevel 100 11/28/16 23:00 106 22 96/64 91 NIV Bilevel 100.00 11/28/16 22:00 117 21 98/69 84 NIV Bilevel 100.00 11/28/16 21:31 125 27 100 100.00 11/28/16 21:15 100.0 116 23 123/78 90 NIV Bilevel 100 11/28/16 21:00 117 22 119/73 90 NIV Bilevel 100.00 11/28/16 20:57 99.1 114 22 112/71 93 NIV Bilevel 100 11/28/16 20:42 97.8 114 21 111/76 95 NIV Bilevel 100 11/28/16 20:00 NIV Bilevel 100 11/28/16 20:00 136 17 113/75 91 NIV Bilevel 100.00 11/28/16 19:49 120 21 94 100.00 11/28/16 19:00 123 11/28/16 19:00 99.3 116 15 127/73 95 NIV Bilevel 100.00 11/28/16 18:30 126 32 100 100.00 11/28/16 18:00 30 135/77 88 NIV Bilevel 100.00 11/28/16 17:32 135 31 95 100.00 11/28/16 17:00 107 19 109/85 NIV Bilevel 100.00 11/28/16 16:34 106 20 99 100.00 11/28/16 16:05 Vapotherm 100 11/28/16 16:05 98.9 11/28/16 16:00 105 25 118/79 NIV Bilevel 100.00 11/28/16 15:00 105 19 110/70 NIV Bilevel 100.00 11/28/16 14:14 112 17 93 100.00 11/28/16 14:00 107 16 106/59 NIV Bilevel 100.00 11/28/16 13:00 109 11/28/16 13:00 17 104/70 NIV Bilevel 100.00 11/28/16 12:38 NIV Bilevel 100.00 11/28/16 12:34 100.00 11/28/16 12:01 116 21 90 85.00 11/28/16 11:50 98.6 11/28/16 11:45 NIV Bilevel 85.00 11/28/16 11:42 Vapotherm 80 11/28/16 11:00 118 18 106/70 NIV Bilevel 80.00 11/28/16 10:30 105 18 114/65 92 NIV Bilevel 80.00 11/28/16 10:15 NIV Bilevel 80.00 11/28/16 10:07 107 16 95 85.00 11/28/16 09:00 18 105/67 89 NIV Bilevel 85.00 11/28/16 08:41 NIV Bilevel 85.00 11/28/16 08:10 99.1 121 24 114/75 96 NIV Bilevel 100.00 11/28/16 08:00 Vapotherm 85 11/28/16 07:45 NIV Bilevel 100.00 11/28/16 07:33 108 20 94 85.00 11/28/16 07:00 125 15 115/89 11/28/16 07:00 120 General Appearance: Anxious, Moderate Distress HEENT: PERRL/EOMI Neck: Supple Respiratory: No Accessory Muscle Use, No Respiratory Distress, Other (on BiPAP FiO2 100%) Cardiovascular: Regular Rate, Rhythm, No Edema, No Gallop, Tachycardia Capillary Refill: Less Than 3 Seconds Gastrointestinal: normal bowel sounds, non tender, soft, no organomegaly, no pulsatile mass Extremity: Non Tender, No Calf Tenderness, No Pedal Edema Neurologic/Psychiatric: Alert, Oriented x3 Skin: Normal Color, Warm/Dry, Pallor (mild) Results Lab Laboratory Tests 11/27/16 11:21 11/28/16 04:58 11/29/16 04:10 Assessment/Plan Assessment/Plan Pneumonia -- doubt PCP -katelyn grimm diflucan, D/C BCTM - if ok with oncology -await cultures -IVF Acute respiratory failure-- symptoms are worse. PT does not tolerate being off BiPAP -BiPAP PRN -NPO -- if pt attempts to eat at this point he will go into worsening respiratory failure and probably aspirate. -steroids decrease to 40mg IV Q6 -Check BNP, give 40mg Lasix, KVO IVF COPDAE/emphysema- present on admission -SVNS Q4, steroids Radiation pneumonitis -decrease solumedrol to 40 IV Q 6 Squamous cell cancer RLL Stage IIIA s/p VATS with RLL lobectomy 07/2016 -Has been under going chemoradiation as out patient I discussed with patient and family regarding current condition and treatment. After clear discussion/explanation with RN and RT at bedside patient and have decided on DNR status but ok for short term ventilation. 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 I am going to give pt 40mg of lasix and KVO IVF. PT will need intubation today or tomorrow if he does not improve with lasix or if he gets worse. 60min spent with patient, family, and discussing with medical team. Clinical Quality Measures DVT/VTE Risk/Contraindication: Risk Factor Score Per Nursin RFS Level Per Nursing on Admit: 2=Moderate BRITTANY LANIER DO Nov 29, 2016 06:59
[2016-11-29] MEDS ORDERED: FUROSEMIDE 40 MG/4 ML INJ (LASIX) IVP ONE (07:00)
[2016-11-29] MEDS ORDERED: ACETAMINOPHEN 650 MG SUPP (TYLENOL) PR PRN (07:00)
[2016-11-29] MEDS ORDERED: APAP 325 MG/10.15 ML LIQ (TYLENOL) UDC PO PRN (07:00)
[2016-11-29] MEDS ORDERED: AA 4.25% W/LYTES IN D5W IV SOL 1,000 ML IV SCH (07:00)
[2016-11-29] MEDS ORDERED: SULFAMETHOXAZOLE/TRIMETHO INJ 480 MG in D5W 500 ML IV SOLUTION 500 ML IV SCH (08:00)
--- NOTE | 2016-11-29 08:57 | Diagnostic Imaging Report ---
INDICATION: Pneumonia. COMPARISON: 11/28/2016 FINDINGS: Single frontal radiographic view of chest was obtained and demonstrates persistent diffuse interstitial opacification of the left lung. There is also persistent asymmetric elevation of right hemidiaphragm with some patchy opacification partially obscuring the right hemidiaphragm in the right perihilar region. Underlying effusion cannot be excluded. There is no large effusion on the left. No pneumothorax is seen on either side. Cardiac silhouette is mostly obscured, but does appear to be enlarged. Pulmonary vasculature, however, appears to be within normal limits. Right internal jugular central venous catheter tip terminates in the high SVC. IMPRESSION: 1. Stable exam of the chest as described above. Dictated by: Dictated on workstation # [id number]
[2016-11-29] MEDS ORDERED: FAMOTIDINE 20MG/2ML IV (PEPCID) ONE (09:20)
[2016-11-29] MEDS: SERTRALINE 100 MG (ZOLOFT) TAB PO SCH (09:34)
[2016-11-29] MEDS: VANCOMYCIN 1250 MG/NS 250 ML IVPB IV SCH ×2 (09:36)
[2016-11-29] MEDS: ENOXAPARIN 40 MG/0.4 ML (LOVENOX) SYR SC SCH (09:37)
[2016-11-29] MEDS: FAMOTIDINE 20MG/2ML IV (PEPCID) IVP SCH (09:37)
[2016-11-29] MEDS ORDERED: VANCOMYCIN 500 MG/NS 100 ML IVPB IV ONE ×2 (10:00)
--- NOTE | 2016-11-29 13:08 | Progress Note-Hospitalist ---
Standard Progress Note Progress Notes/Assess & Plan Date Seen 11/29/16 Time Seen by Provider: 13:02 Diagnosis 1. Probable left lower lobe pneumonia with secondary respiratory failure continue broad-spectrum antibiotic coverage anti-inflammatory and bronchodilator therapy with BiPAP as needed. 2. Stage IIIa squamous cell carcinoma the right lung status post right lower lobectomy via VAT with subsequent radiation and chemotherapy. 3. Radiation pneumonitis 4. Sepsis most likely not severe. The patient systolic pressures have been somewhat low but there is no evidence for end organ damage. In review of previous medical records he usually runs around 110 systolic range we'll repeat a CMP and as long as renal function remains stable we will continue IV fluids and hold vasopressor therapy. If there is evidence for any decline we'll start Levophed. Assess & Plan/Chief Complaint The patient is a 66-year-old white male with previous diagnosis of stage III squamous cell carcinoma right lung post right lower lobectomy, chemotherapy, radiation therapy with radiation pneumonitis. He was admitted after noting a decline in the few days prior to admission which appeared to be as a result of a left lower lobe pneumonia. He has been afebrile for several days however is marginal and requiring maximum noninvasive pulmonary support. He told Dr. Thao that he would be willing to be intubated and placed on a ventilator for a short term if there were any hope of at least temporary improvement. He stated that he would not allow tracheostomy. He attempts to speak to me but is hard to understand with the mask and pressure support in place. SaO2 is noted to be in the low to mid 90 range. Physical exam: He is uncovered in bed and wearing boxer shorts and sweating. Lungs show the breath sounds to be quite distant. CV showed a tachycardia with the rate in the 120-130 range. Impression: Stage III a carcinoma of the right lung post lower lobectomy, chemotherapy, radiation. 2.radiation induced pneumonitis. 3.left lower lobe pneumonia. 4.marginal pulmonary status with maximum noninvasive support. Plan: Continue present efforts. 2.the family states that he is reported pain and discomfort and wonder about increasing pain medication for better comfort. Labs Laboratory Tests 11/28/16 04:58 11/29/16 04:10 CONG VASQUEZ MD Nov 29, 2016 13:07
[2016-11-29] MEDS: methylPREDNISolone 40 MG/ML (Solu-MEDROL) VIAL IV SCH ×3 (13:16→23:28)
[2016-11-29] MEDS ORDERED: NS IV 1000 ML 1,000 ML ONE ×2 (15:10→20:21)
[2016-11-29] MEDS ORDERED: PROMETHAZINE INJ 25 MG/ML (PHENERGAN) AMP ONE (15:11)
[2016-11-29] MEDS ORDERED: proPOfol 200 MG/20 ML (DIPRIVAN) VIAL IV ONE ×2 (15:11→16:30)
[2016-11-29] MEDS ORDERED: NOREPINEPHRINE 4 MG/4 ML (LEVOPHED) AMP IV ONE (15:11)
[2016-11-29] MEDS ORDERED: D5W 250 ML (IVPB) 250 ML IV ONE ×6 (15:12→23:43)
[2016-11-29] MEDS ORDERED: NS IV 500 ML 500 ML ONE (15:22)
[2016-11-29] MEDS ORDERED: PHENYLEPHRINE INJ 10 MG/ML (NEO-SYNEPHRINE 1%) ONE ×6 (15:22→23:43)
[2016-11-29] MEDS ORDERED: NS (IVPB) 100 ML ONE (15:24)
[2016-11-29] MEDS ORDERED: ONDANSETRON 4 MG/2 ML (SDV) Z0FRAN ONE (15:25)
[2016-11-29] MEDS ORDERED: NS (IVPB) 50 ML ONE (16:18)
--- NOTE | 2016-11-29 16:21 | Progress Note-Standard ---
Standard Progress Note Progress Notes/Assess & Plan Date Seen by Provider: Nov 29, 2016 Time Seen by Provider: 15:40 Progress/Assessment & Plan Anesthesia Note ([id number]) Called to ICU for endotracheal intubation and Art line placement. Pt is on maximal BiPAP and SBP is 60-75 mmHg prior to intubation. Phenylephrine 100 mcg IV given prior to induction medications. 100% O2 via BiPAP prior to intubation. Versed 2 mg IV and Propofol 100 mg IV followed by Succinylcholine 100 mg IV. 8.0 cuffed ETT passed easily through vocal cords using Richey scope with X- Blade. Secured at 25 cm with + CO2 color change and BS = B/L. Ventilator settings and sedation per Dr. Hammond after intubation. Left radial arterial line (20 G) secured with good waveform without difficulty after sterile prep. Pt tolerated both procedures well. We will be available as needed. LISA SÁNCHEZ DO Nov 29, 2016 16:21
[2016-11-29] MEDS ORDERED: PROPOFOL DRIP (ICU) 100 ML IV ONE (16:26)
[2016-11-29] MEDS ORDERED: PHENYLEPHRINE INJ 10 MG/ML (NEO-SYNEPHRINE 1%) IV ONE (16:30)
[2016-11-29] MEDS ORDERED: SUCCINYLCHOLINE INJ 100 MG/5 ML SYR INJ ONE (16:30)
[2016-11-29] MEDS ORDERED: MIDAZOLAM 2 MG/2 ML (VERSED) VIAL IVP ONE (16:30)
--- NOTE | 2016-11-29 16:39 | Progress Note-Standard ---
Standard Progress Note Progress Notes/Assess & Plan Date Seen by Provider: Nov 29, 2016 Time Seen by Provider: 16:28 Progress/Assessment & Plan 66-year-old male who underwent a right lower lobectomy for non-small cell lung cancer and found to have subcarinal lymph node positive. He completed adjuvant radiation therapy along with low-dose chemotherapy using carboplatinum and paclitaxel regimen and completed all treatment by early October 2016. He was diagnosed with the radiation pneumonitis by late October 2016and started on prednisone 40 mg daily 2 weeks and 30 mg daily 2 weeks and was starting to feel better. Patient brought to the emergency room last Jcarlos with increasing shortness of breath and found to have extensive left lung infiltrates which is new. Currently on Zosyn and vancomycin along with Diflucan. Worsening hypoxia today and patient intubated. Suctioning thick secretions now which has been sent for Gram stain and culture. The left lung infiltrates is due to infectious etiology until proven otherwise. These infiltrates are outside the radiation field and is most likely not due to radiation pneumonitis. Would recommend a bronchoscopy with BAL and brushings for culture and sensitivity. I have met with his family and answered their questions. They are aware of the poor prognosis but wanted to continue the treatments. I will follow the patient with you. CLOTILDE VILLAGRAN Nov 29, 2016 16:39
[2016-11-29 16:49] LABS: ABG BASE EXCESS -5.3 MMOL/L (-2.5-2.5); ABG HCO3 23 MMOL/L (23-27); ABG OXYGEN SATURATION 97 % (94-100); ABG PCO2 68 MMHG (35-45); ABG PO2 114 MMHG (79-93); ABG TCO2 24.8 MMOL/L (21.0-31.0)
[2016-11-29] MEDS: FLUCONAZOLE 100 MG/50 ML 50 ML IV SCH (16:53)
[2016-11-29 16:55] LABS: ABG PH 7.14 (7.37-7.43); ALLENS TEST ART LINE
[2016-11-29] MEDS ORDERED: FUROSEMIDE 40 MG/4 ML INJ (LASIX) IVP SCH (17:00)
[2016-11-29] MEDS ORDERED: DEXMEDETOMIDINE INJECTION 400 MCG in NS (IVPB) 100 ML IV SCH (17:00)
[2016-11-29] MEDS: PROPOFOL DRIP (ICU) 100 ML IV SCH (17:00)
[2016-11-29] MEDS ORDERED: NS IV 1000 ML 1,000 ML IV SCH (17:15)
[2016-11-29] MEDS ORDERED: NOREPINEPHRINE 4 MG in D5W 250 ML (IVPB) 250 ML IV SCH (17:15)
[2016-11-29] MEDS ORDERED: ONDANSETRON 4 MG/2 ML (SDV) Z0FRAN IVP ONE (17:15)
--- NOTE | 2016-11-29 17:42 | Diagnostic Imaging Report ---
INDICATION: Intubation and OG tube placement. COMPARISON: 11/29/2016 at 4:13 a.m. TIME OF EXAM: 11/29/2016 at 4:23 p.m. FINDINGS: Semiupright portable view of the chest is obtained. The patient is now intubated. The tip of the endotracheal tube appears to be about 2.2 cm proximal to the giovanna. A nasogastric tube is seen just beyond the gastroesophageal junction in the stomach. Right IJ line is unchanged. Heart size remains enlarged. Mild central venous congestion is unchanged. Diffuse increase of the interstitial markings throughout the left lung appears minimally worse. There is also increasing atelectasis or infiltrate at the right lung base with elevation of the right hemidiaphragm. IMPRESSION: 1. New endotracheal tube tip appears to be in good position about 2.2 cm proximal to the giovanna. Nasogastric tube is just beyond the gastroesophageal junction in the stomach. 2. Increasing diffuse interstitial changes throughout the left lung and increasing atelectasis or infiltrate with possible effusion at the right lung base. Dictated by: Dictated on workstation # [id number]
[2016-11-29 18:28] LABS: ABG BASE EXCESS -2.9 MMOL/L (-2.5-2.5); ABG HCO3 24 MMOL/L (23-27); ABG OXYGEN SATURATION 74 % (94-100); ABG PCO2 56 MMHG (35-45); ABG PO2 50 MMHG (79-93); ABG TCO2 25.3 MMOL/L (21.0-31.0)
[2016-11-29 18:29] LABS: ABG PH 7.24 (7.37-7.43); ALLENS TEST ARTLINE
[2016-11-29 18:30] LABS: PATIENT TEMP 97.2
[2016-11-29] MEDS ORDERED: CISATRACURIUM 2MG/ML (NIMBEX) 10ML VIAL IV ONE (19:00)
[2016-11-29] MEDS ORDERED: CISATRACURIUM 100 MG/NS 200 ML (TOTAL VOLUME 250 ML) IV SCH ×2 (19:00)
[2016-11-29] MEDS: PHENYLEPHRINE INJECTION 10 MG in D5W 250 ML (IVPB) 250 ML IV SCH ×3 (19:28→22:28)
[2016-11-29] MEDS ORDERED: EPINEPHrine INJECTION 1 MG/ML AMP ONE (20:00)
[2016-11-29] MEDS ORDERED: NS (IVPB) 500 ML ONE (20:22)
--- NOTE | 2016-11-29 20:29 | Diagnostic Imaging Report ---
INDICATION: Hypoxemia and respiratory distress. 2015 hrs. COMPARISON is made to a study of earlier in the day. FINDINGS: Endotracheal tube is in place with tip projecting over the lower trachea. Nasogastric tube passes below the diaphragm. Extensive bilateral airspace disease is again noted. There is no evidence of pneumothorax. IMPRESSION: Stable appearance of the chest with no significant change in support tube positioning. Dictated by: Dictated on workstation # [id number]
[2016-11-29] MEDS ORDERED: EPINEPHrine 0.1 MG/ML 10 ML (HOSPIRA) SYR IV NR (20:30)
[2016-11-29] MEDS: AMITRIPTYLINE 10 MG (ELAVIL) TAB PO SCH (20:42)
[2016-11-29] MEDS: VANCOMYCIN 1500 MG/NS 500 ML IVPB IV SCH ×2 (21:40)
[2016-11-29] MEDS: CHLORHEXIDINE 0.12% SOLN 15 ML (PERIDEX) UDC PO SCH (21:40)
[2016-11-29 21:47] LABS: ABG BASE EXCESS -5.7 MMOL/L (-2.5-2.5); ABG HCO3 20 MMOL/L (23-27); ABG OXYGEN SATURATION 97 % (94-100); ABG PCO2 47 MMHG (35-45); ABG PO2 106 MMHG (79-93); ABG TCO2 21.7 MMOL/L (21.0-31.0)
[2016-11-29 21:50] LABS: ABG PH 7.25 (7.37-7.43); ALLENS TEST YES-POS; PATIENT TEMP 98.6
[2016-11-29] MEDS ORDERED: NS IV 500 ML 500 ML IV SCH (22:15)
[2016-11-29] MEDS: NS IV 500 ML 500 ML IV SCH (23:28)
[2016-11-29 23:52] LABS: CALCIUM 7.3 MG/DL (8.5-10.1); CREATININE SERUM 1.49 MG/DL (0.60-1.30); MAGNESIUM 1.9 MG/DL (1.8-2.4)
[2016-11-29] MEDS: inSUlin (REGULAR) HUMAN 1 UNIT/0.01 ML (CHARGE PER UNIT) SC SCH (23:59)
[2016-11-30] VITALS (34 sets, daily range): BP systolic 68–175; BP diastolic 36–106
[2016-11-30] MEDS: NS IV 500 ML 500 ML IV SCH ×3 (00:18→16:10)
[2016-11-30 00:58] LABS: ABG BASE EXCESS -5.5 MMOL/L (-2.5-2.5); ABG HCO3 20 MMOL/L (23-27); ABG OXYGEN SATURATION 94 % (94-100); ABG PCO2 41 MMHG (35-45); ABG PO2 76 MMHG (79-93); ABG TCO2 21.1 MMOL/L (21.0-31.0)
[2016-11-30 01:00] LABS: ALLENS TEST YES-POS; PATIENT TEMP 97.7
[2016-11-30] MEDS: PROPOFOL DRIP (ICU) 100 ML IV SCH ×4 (01:15→23:33)
[2016-11-30] MEDS ORDERED: PHENYLEPHRINE INJ 10 MG/ML (NEO-SYNEPHRINE 1%) ONE ×4 (01:22→02:43)
[2016-11-30] MEDS ORDERED: D5W 250 ML (IVPB) 250 ML IV ONE ×2 (01:22→02:27)
[2016-11-30] MEDS ORDERED: NS IV 500 ML 500 ML IV SCH ×2 (01:30→04:15)
[2016-11-30] MEDS: RT-ALBUTEROL/IPRATROPIUM 3 ML (DUONEB) VIAL INH SCH ×6 (02:17→22:10)
[2016-11-30] MEDS: PIPERACILLIN/TAZOBACTAM 4.5 GM/NS 100 ML IVPB IV SCH ×6 (02:23→17:03)
[2016-11-30] MEDS: LACTATED RINGERS 1,000 ML IV SCH (02:23)
[2016-11-30] MEDS ORDERED: D5W IV ONE (02:44)
[2016-11-30 03:35] LABS: BASOPHILS % (AUTO) 0 % (0-10); EOSINOPHILS % (AUTO) 0 % (0-10); LYMPHOCYTES # (AUTO) 0.3 X 10^3 (1.0-4.0); LYMPHOCYTES % (AUTO) 1 % (12-44); MEAN CORPUSCULAR HEMOGLOBIN 31 PG (25-34); MEAN CORPUSCULAR HGB CONC 33 G/DL (32-36); MEAN CORPUSCULAR VOLUME 94 FL (80-99); MEAN PLATELET VOLUME 10.6 FL (7.4-10.4); MONOCYTES % (AUTO) 4 % (0-12); NEUTROPHILS # (AUTO) 22.4 X 10^3 (1.8-7.8); NEUTROPHILS % (AUTO) 95 % (42-75); PLATELET COUNT 118 10^3/uL (130-400); RED BLOOD COUNT 3.61 10^6/uL (4.35-5.85); RED CELL DISTRIBUTION WIDTH 17.4 % (10.0-14.5); WHITE BLOOD COUNT 23.6 10^3/uL (4.3-11.0)
[2016-11-30 03:41] LABS: ABG BASE EXCESS -5.3 MMOL/L (-2.5-2.5); ABG HCO3 20 MMOL/L (23-27); ABG OXYGEN SATURATION 92 % (94-100); ABG PCO2 45 MMHG (35-45); ABG PO2 72 MMHG (79-93); ABG TCO2 21.8 MMOL/L (21.0-31.0)
[2016-11-30 03:43] LABS: ABG PH 7.28 (7.37-7.43); ALLENS TEST YES-POS; PATIENT TEMP 98.2
[2016-11-30 03:54] LABS: CALCIUM 7.3 MG/DL (8.5-10.1); CREATININE SERUM 1.51 MG/DL (0.60-1.30); MAGNESIUM 1.9 MG/DL (1.8-2.4); PHOSPHORUS 5.5 MG/DL (2.3-4.7); POTASSIUM 4.1 MMOL/L (3.6-5.0)
[2016-11-30] MEDS: inSUlin (REGULAR) HUMAN 1 UNIT/0.01 ML (CHARGE PER UNIT) SC SCH ×5 (04:18→20:48)
[2016-11-30] MEDS: CATHETER FLUSH 10 ML SYR IV SCH ×3 (04:18→21:02)
[2016-11-30] MEDS: MAGNESIUM 1 GM/100 ML IVPB 100 ML IV SCH (04:19)
[2016-11-30] MEDS: POTASSIUM CL 10MEQ/50ML IVPB 50 ML IV SCH (04:19)
[2016-11-30] MEDS: KCL 20 MEQ TAB (K-DUR) PO SCH (04:20)
[2016-11-30] MEDS: PHENYLEPHRINE INJECTION 10 MG in D5W 250 ML (IVPB) 250 ML IV SCH ×4 (04:55→12:00)
[2016-11-30 05:30] LABS: BILIRUBIN,URINE NEGATIVE (NEGATIVE); KETONES,URINE NEGATIVE (NEGATIVE); LEUKOCYTE ESTERASE ,URINE 2+ (NEGATIVE); NITRITE,URINE NEGATIVE (NEGATIVE); PH,URINE 5 (5-9); PROTEIN,URINE 3+ (NEGATIVE); UROBILINOGEN,URINE NORMAL (NORMAL)
[2016-11-30] MEDS: methylPREDNISolone 40 MG/ML (Solu-MEDROL) VIAL IV SCH ×2 (05:52→12:00)
[2016-11-30] MEDS ORDERED: SULFAMETHOXAZOLE IV SCH (06:00)
[2016-11-30] MEDS ORDERED: D5W IV SCH (06:00)
[2016-11-30] MEDS ORDERED: TRIMETHO IV SCH (06:00)
--- NOTE | 2016-11-30 06:16 | Pulmonary Progress Note ---
Subjective Time Seen by Provider: 06:49 Subjective/Events-last exam PT is doing worse today even on ventilator and max support. Exam Exam Vital Signs Date Time Temp Pulse Resp B/P (MAP) Pulse Ox O2 Delivery O2 Flow Rate FiO2 11/30/16 05:00 120 26 78/60 95 Mechanical Ventilator 90.00 79/48 11/30/16 04:46 118 30 94 90 11/30/16 04:00 Mechanical Ventilator 90.00 11/30/16 04:00 111 23 115/79 93 Mechanical Ventilator 90.00 119/74 11/30/16 03:30 98.2 11/30/16 03:00 113 20 156/105 96 Mechanical Ventilator 90.00 154/106 11/30/16 02:18 107 30 93 90 11/30/16 02:00 101 21 134/100 94 Mechanical Ventilator 90.00 136/84 11/30/16 01:15 103/65 11/30/16 01:13 103/65 11/30/16 01:00 100 16 103/65 93 Mechanical Ventilator 90.00 79/49 11/30/16 01:00 100 11/30/16 00:16 97 26 94 100 11/30/16 00:00 Mechanical Ventilator 100.00 11/30/16 00:00 98.3 101 18 131/90 95 Mechanical Ventilator 100.00 142/91 11/29/16 23:00 105 20 112/84 95 Mechanical Ventilator 100.00 91/64 11/29/16 22:43 113 24 95 75 11/29/16 22:05 105 19 98 75 11/29/16 22:00 106 16 98/76 95 Mechanical Ventilator 100.00 90/57 11/29/16 21:00 123 16 107/73 93 Mechanical Ventilator 100.00 100/57 11/29/16 20:35 125 28 94 100 11/29/16 20:00 116 18 101/52 91 Mechanical Ventilator 100.00 112/65 11/29/16 20:00 Mechanical Ventilator 100.00 11/29/16 19:00 129 11/29/16 19:00 98.6 11/29/16 19:00 129 15 123/81 80 Mechanical Ventilator 100.00 114/60 11/29/16 18:30 128 30 81 100 11/29/16 18:00 128 14 153/103 87 Mechanical Ventilator 100.00 11/29/16 17:02 90 8/28/17 17:00 131 14 152/104 87 Mechanical Ventilator 100.00 11/29/16 17:00 150 11/29/16 17:00 97.0 11/29/16 16:50 142 120/91 89 Mechanical Ventilator 100.00 11/29/16 16:40 140 21 98 90 11/29/16 16:30 Mechanical Ventilator 100 11/29/16 16:08 154 19 85 100 11/29/16 15:59 134 26 91/61 85 Mechanical Ventilator 100.00 11/29/16 15:50 Mechanical Ventilator 100.00 11/29/16 14:04 135 31 93 50.00 11/29/16 14:00 126 20 78/46 92 NIV Bilevel 50.00 11/29/16 13:30 NIV Bilevel 50 11/29/16 13:18 97.2 11/29/16 13:00 125 11/29/16 13:00 133 21 94/63 NIV Bilevel 50.00 11/29/16 12:30 129 22 95 50.00 11/29/16 11:00 121 26 101/69 NIV Bilevel 50.00 11/29/16 10:27 NIV Bilevel 50.00 11/29/16 10:21 114 27 96 60.00 11/29/16 10:00 117 27 112/72 NIV Bilevel 60.00 11/29/16 09:35 NIV Bilevel 60.00 11/29/16 09:30 99 60.00 11/29/16 09:00 112 26 103/72 NIV Bilevel 70.00 11/29/16 08:30 NIV Bilevel 70 11/29/16 08:20 115 31 95 70.00 11/29/16 08:00 110 23 100/69 NIV Bilevel 70.00 11/29/16 07:00 121 32 109/73 NIV Bilevel 70.00 11/29/16 07:00 NIV Bilevel 70.00 11/29/16 07:00 117 11/29/16 06:48 120 36 93 70.00 11/29/16 06:00 112 25 101/69 95 NIV Bilevel 80.00 General Appearance: Moderate Distress, Obese HEENT: PERRL/EOMI Neck: Supple Respiratory: Other (on bi-pap) Cardiovascular: Regular Rate, Rhythm, Bradycardia Capillary Refill: Greater Than 3 Seconds Gastrointestinal: normal bowel sounds, non tender, soft, no organomegaly, no pulsatile mass Extremity: Non Tender, No Calf Tenderness, No Pedal Edema Neurologic/Psychiatric: Alert, Oriented x3 Skin: Normal Color, Warm/Dry Lymphatic: No Adenopathy Results Lab Laboratory Tests 11/29/16 04:10 11/29/16 23:25 11/30/16 03:26 Assessment/Plan Assessment/Plan Pneumonia -- doubt PCP -zosyn, vanco, diflucan, -restart Bactrim -repeat [place] cultures -IVF Acute respiratory failure-- -PT was intubated last night. -BiPAP PRN -steroids decrease to 40mg IV Q6 Hypotension with decreased UO FeNa is 0.49 -IVF -Check CVP monitoring -PT is getting Albumin this AM -Pt is currently on Norsynephrine COPDAE/emphysema- present on admission -SVNS Q4, steroids Radiation pneumonitis -decrease solumedrol to 40 IV Q 6 Squamous cell cancer RLL Stage IIIA s/p VATS with RLL lobectomy 07/2016 -Has been under going chemoradiation as out patient I discussed with EICU for second opinion on treatment of patient. They also do not believe this is PCP. Given patients critical condition will continue BCTM for now. EICU also agrees that bronchoscopy at this time the risk out ways the benefit. Pts prognosis is very poor and I have discussed this with family. We will current care for now. Pt is a No CODE. 60 min spent with patient, family and medical team Clinical Quality Measures DVT/VTE Risk/Contraindication: Risk Factor Score Per Nursin RFS Level Per Nursing on Admit: 2=Moderate BRITTANY LANIER DO Nov 30, 2016 06:16
[2016-11-30] MEDS ORDERED: ALBUMIN 25% 25 GM/100 ML 100 ML IV ONE ×2 (06:29→06:45)
[2016-11-30] MEDS ORDERED: MIDAZOLAM 5 MG/5 ML (VERSED) VIAL IJ ONE (06:57)
[2016-11-30] MEDS ORDERED: SUCCINYLCHOLINE INJ 100 MG/5 ML SYR INJ ONE (06:57)
--- NOTE | 2016-11-30 07:53 | Diagnostic Imaging Report ---
INDICATION: Pneumonia. Comparison made to prior examination 11/29/2016. FINDINGS: There is cardiomegaly. There is venous congestion. There is bilateral airspace airspace disease left greater than right. There is a right pleural effusion. There is no pneumothorax. Lines and tubes are in satisfactory position. IMPRESSION: Persistent bilateral airspace disease left greater than right with a right pleural effusion. Cardiomegaly and some venous congestion. Dictated by: Dictated on workstation # [id number]
[2016-11-30] MEDS: CHLORHEXIDINE 0.12% SOLN 15 ML (PERIDEX) UDC PO SCH ×2 (08:17→21:16)
[2016-11-30] MEDS: VANCOMYCIN 1500 MG/NS 500 ML IVPB IV SCH ×4 (08:18→21:34)
[2016-11-30] MEDS: FAMOTIDINE 20MG/2ML IV (PEPCID) IVP SCH (08:18)
[2016-11-30] MEDS: ENOXAPARIN 40 MG/0.4 ML (LOVENOX) SYR SC SCH (08:18)
[2016-11-30] MEDS: SULFAMETHOXAZOLE/TRIMETHO SUSP 10 ML (BACTRIM) UDC PO SCH ×3 (10:49→18:25)
--- NOTE | 2016-11-30 12:10 | Progress Note-Hospitalist ---
Standard Progress Note Progress Notes/Assess & Plan Date Seen 11/30/16 Time Seen by Provider: 12:05 Diagnosis 1. Probable left lower lobe pneumonia with secondary respiratory failure continue broad-spectrum antibiotic coverage anti-inflammatory and bronchodilator therapy with BiPAP as needed. 2. Stage IIIa squamous cell carcinoma the right lung status post right lower lobectomy via VAT with subsequent radiation and chemotherapy. 3. Radiation pneumonitis 4. Sepsis most likely not severe. The patient systolic pressures have been somewhat low but there is no evidence for end organ damage. In review of previous medical records he usually runs around 110 systolic range we'll repeat a CMP and as long as renal function remains stable we will continue IV fluids and hold vasopressor therapy. If there is evidence for any decline we'll start Levophed. Assess & Plan/Chief Complaint Performance yesterday indicated unsatisfactory ventilation and oxygenation. He was intubated and placed on mechanical ventilator late yesterday. Today's vital signs show pulse rate in the 120s. The FiO2 is 90 percent and the respiratory rate running in the mid 20s. SaO2 at that delivery was 94-95 percent. The patient is deeply sedated. Physical exam: His skin is warm and sweaty. Lungs show distant breath sounds. CV shows a tachycardia with a rate of 125 abdomen is soft palpation. Extremities show 1+ pedal edema. Impression: Respiratory failure necessitating mechanical ventilation and high flow oxygen delivery. 2.squamous cell carcinoma lung stage III a. 3.contributing factors to respiratory failure include previous right lower lobectomy, left-sided pneumonia, radiation pneumonitis. Plan: Continue ventilation support. The patient had previously indicated he was unwilling to consider tracheostomy if it were to come to that. Prognosis is considered to be poor Labs Laboratory Tests 11/29/16 04:10 11/29/16 23:25 11/30/16 03:26 CONG VASQUEZ MD Nov 30, 2016 12:10
[2016-11-30] MEDS: PHENYLEPHRINE IV SCH ×2 (13:01→17:21)
[2016-11-30] MEDS: D5W IV SCH ×2 (13:01→17:21)
[2016-11-30] MEDS: HYDROCORTISONE 100 MG/2 ML (Solu-CORTEF) VIAL IV SCH ×2 (14:15→21:16)
--- NOTE | 2016-11-30 15:31 | Diagnostic Imaging Report ---
INDICATION: Pneumonia. Hypoxia. COMPARISON: Earlier the same day. FINDINGS: A single frontal radiographic view of the chest was obtained and demonstrates an indwelling endotracheal tube with the tip approximately 2.5 cm above the giovanna. An enteric tube is also seen. The tip is not well visualized but appears to terminate likely at the GE junction. The right internal jugular central venous catheter tip terminates in the SVC. The lungs continue to show dense consolidation in the right mid and lower lung horn. There are persistent diffuse interstitial opacities on the left. Overall, the aeration is stable. There is no pneumothorax. The cardiac silhouette and pulmonary vasculature are stable as well. IMPRESSION: 1. Lines and tubes as above. 2. Overall, stable exam of the chest as described above. Dictated by: Dictated on workstation # [id number]
[2016-11-30] MEDS: FLUCONAZOLE 100 MG/50 ML 50 ML IV SCH (15:37)
[2016-11-30] MEDS ORDERED: TROUGH ORDER-PHARMACY XX ONE (20:00)
[2016-11-30] MEDS: fentaNYL INJECTION 100 MCG/2 ML AMP IV PRN (21:16)
[2016-11-30] MEDS: AMITRIPTYLINE 10 MG (ELAVIL) TAB PO SCH (21:16)
[2016-12-01] VITALS (37 sets, daily range): BP systolic 63–152; BP diastolic 36–97
[2016-12-01] MEDS: SULFAMETHOXAZOLE/TRIMETHO SUSP 10 ML (BACTRIM) UDC PO SCH ×4 (00:06→14:02)
[2016-12-01] MEDS: fentaNYL INJECTION 100 MCG/2 ML AMP IV PRN ×6 (00:07→20:38)
[2016-12-01] MEDS: inSUlin (REGULAR) HUMAN 1 UNIT/0.01 ML (CHARGE PER UNIT) SC SCH ×6 (00:07→20:09)
[2016-12-01] MEDS: PIPERACILLIN/TAZOBACTAM 4.5 GM/NS 100 ML IVPB IV SCH ×6 (01:37→18:29)
[2016-12-01] MEDS: RT-ALBUTEROL/IPRATROPIUM 3 ML (DUONEB) VIAL INH SCH ×6 (02:07→22:08)
[2016-12-01] MEDS: CATHETER FLUSH 10 ML SYR IV SCH ×3 (04:07→22:53)
[2016-12-01] MEDS: LACTATED RINGERS 1,000 ML IV SCH ×2 (04:14→11:10)
[2016-12-01 04:30] LABS: BASOPHILS % (AUTO) 0 % (0-10); EOSINOPHILS % (AUTO) 0 % (0-10); LYMPHOCYTES # (AUTO) 0.4 X 10^3 (1.0-4.0); LYMPHOCYTES % (AUTO) 3 % (12-44); MEAN CORPUSCULAR HEMOGLOBIN 31 PG (25-34); MEAN CORPUSCULAR HGB CONC 33 G/DL (32-36); MEAN CORPUSCULAR VOLUME 93 FL (80-99); MEAN PLATELET VOLUME 11.8 FL (7.4-10.4); MONOCYTES # (AUTO) 0.8 X 10^3 (0.0-1.0); MONOCYTES % (AUTO) 5 % (0-12); NEUTROPHILS # (AUTO) 13.4 X 10^3 (1.8-7.8); NEUTROPHILS % (AUTO) 92 % (42-75); PLATELET COUNT 40 10^3/uL (130-400); RED BLOOD COUNT 2.81 10^6/uL (4.35-5.85); RED CELL DISTRIBUTION WIDTH 16.5 % (10.0-14.5); WHITE BLOOD COUNT 14.5 10^3/uL (4.3-11.0)
[2016-12-01 04:31] LABS: ABG BASE EXCESS -4.5 MMOL/L (-2.5-2.5); ABG HCO3 20 MMOL/L (23-27); ABG OXYGEN SATURATION 95 % (94-100); ABG PCO2 39 MMHG (35-45); ABG PO2 78 MMHG (79-93); ABG TCO2 21.5 MMOL/L (21.0-31.0)
[2016-12-01 04:35] LABS: ALLENS TEST ART LINE; PATIENT TEMP 98.8
[2016-12-01 04:36] LABS: ABG PH 7.34 (7.37-7.43)
[2016-12-01 04:59] LABS: CALCIUM 7.5 MG/DL (8.5-10.1); CREATININE SERUM 2.64 MG/DL (0.60-1.30); MAGNESIUM 1.9 MG/DL (1.8-2.4); PHOSPHORUS 5.3 MG/DL (2.3-4.7); POTASSIUM 4.2 MMOL/L (3.6-5.0)
[2016-12-01] MEDS: MAGNESIUM 1 GM/100 ML IVPB 100 ML IV SCH (05:36)
[2016-12-01] MEDS: POTASSIUM CL 10MEQ/50ML IVPB 50 ML IV SCH (05:36)
[2016-12-01] MEDS: KCL 20 MEQ TAB (K-DUR) PO SCH (05:36)
[2016-12-01] MEDS ORDERED: PANTOPRAZOLE 40 MG/10 ML (PROTONIX) VIAL IV ONE (05:45)
--- NOTE | 2016-12-01 06:18 | Pulmonary Progress Note ---
Subjective Time Seen by Provider: 06:25 Subjective/Events-last exam PT has now developed GIB, thrombocytopenia, and anemia will repeat CBC Exam Exam Vital Signs Date Time Temp Pulse Resp B/P (MAP) Pulse Ox O2 Delivery O2 Flow Rate FiO2 12/01/16 04:10 114 22 97 100 12/01/16 04:00 113 22 88/57 97 Mechanical Ventilator 90.00 82/42 12/01/16 03:00 Mechanical Ventilator 90.00 12/01/16 03:00 113 26 101/69 97 Mechanical Ventilator 90.00 96/54 12/01/16 02:30 95.00 12/01/16 02:08 129 34 90 100 12/01/16 02:00 115 21 97/66 89 Mechanical Ventilator 100.00 89/56 12/01/16 01:00 120 12/01/16 01:00 120 22 113/72 96 Mechanical Ventilator 100.00 95/54 12/01/16 00:12 122 27 90 100 12/01/16 00:00 99.0 Mechanical Ventilator 100.00 12/01/16 00:00 122 29 136/86 91 Mechanical Ventilator 100.00 128/71 12/01/16 00:00 Mechanical Ventilator 100.00 11/30/16 23:33 117 104/57 11/30/16 23:00 123 29 128/76 92 Mechanical Ventilator 100.00 105/62 11/30/16 22:10 121 29 91 100 11/30/16 22:00 125 32 91/68 89 Mechanical Ventilator 100.00 105/60 11/30/16 21:00 126 24 82/68 86 Mechanical Ventilator 100.00 100/49 11/30/16 20:25 126 32 89 100 11/30/16 20:00 Mechanical Ventilator 100.00 11/30/16 20:00 120 23 133/93 93 Mechanical Ventilator 100.00 142/75 11/30/16 20:00 97.3 Mechanical Ventilator 100.00 11/30/16 19:00 125 11/30/16 19:00 125 25 129/83 88 Mechanical Ventilator 100.00 106/57 11/30/16 18:53 124 32 90 100 11/30/16 18:00 115 20 100 Mechanical Ventilator 100.00 139/81 11/30/16 17:00 123 20 114/76 100 Mechanical Ventilator 100.00 100/62 11/30/16 16:40 118 28 100 90 8/29/17 16:00 97.1 Mechanical Ventilator 100.00 11/30/16 16:00 Mechanical Ventilator 100.00 11/30/16 16:00 116 15 98 Mechanical Ventilator 100.00 163/87 11/30/16 15:30 Mechanical Ventilator 100.00 11/30/16 15:15 130 106/50 Mechanical Ventilator 100.00 11/30/16 15:00 125 25 144/94 94 Mechanical Ventilator 90.00 126/70 11/30/16 14:46 129 30 86 90 11/30/16 14:00 122 28 120/83 92 Mechanical Ventilator 90.00 127/69 11/30/16 13:00 126 25 132/82 92 Mechanical Ventilator 90.00 106/71 11/30/16 13:00 119 11/30/16 12:24 137 35 90 90 11/30/16 12:00 98.5 Mechanical Ventilator 90.00 11/30/16 12:00 Mechanical Ventilator 90.00 11/30/16 11:00 130 23 Mechanical Ventilator 90.00 108/60 11/30/16 10:21 118 24 95 90 11/30/16 10:00 115 21 93 Mechanical Ventilator 90.00 154/90 11/30/16 09:25 122 26 94 90 11/30/16 09:00 123 27 95 Mechanical Ventilator 90.00 175/86 11/30/16 08:00 Mechanical Ventilator 90.00 11/30/16 08:00 98.9 Mechanical Ventilator 90.00 11/30/16 08:00 133 24 115/88 95 Mechanical Ventilator 90.00 111/67 11/30/16 07:04 118 24 95 90 11/30/16 07:00 120 149/93 (111) 11/30/16 07:00 126 11/30/16 07:00 120 22 151/96 95 Mechanical Ventilator 90.00 General Appearance: Moderate Distress, Obese HEENT: PERRL/EOMI Neck: Supple Respiratory: Other (on bi-pap) Cardiovascular: Regular Rate, Rhythm, Bradycardia Capillary Refill: Less Than 3 Seconds Gastrointestinal: normal bowel sounds, non tender, soft, no organomegaly, no pulsatile mass Extremity: Non Tender, No Calf Tenderness, No Pedal Edema Neurologic/Psychiatric: Alert, Oriented x3 Skin: Normal Color, Warm/Dry Lymphatic: No Adenopathy Results Lab Laboratory Tests 11/29/16 23:25 11/30/16 03:26 12/01/16 04:10 Assessment/Plan Assessment/Plan Pneumonia -- doubt PCP -zosyn, vanco, diflucan, -Bactrim -repeat [place] cultures pending -IVF Acute respiratory failure-- -BiPAP PRN -Solumedrol 40mg IV Q6 -- changed to SoluCortef secondary to Hypotension Acute upper GIB --Repeat labs -Protonix gtt -Monitor H&H Thrombocytopenia -check HIT abx and PT, PTT, INR -Repeat labs -trasfuse 2 6pk platelets if repeat labs are the same. 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 Pt is a DNR and no longterm ventilation. 60min spent with patient, family, and medical team. Clinical Quality Measures DVT/VTE Risk/Contraindication: Risk Factor Score Per Nursin RFS Level Per Nursing on Admit: 2=Moderate BRITTANY LANIER DO Dec 01, 2016 06:18
[2016-12-01] MEDS: HYDROCORTISONE 100 MG/2 ML (Solu-CORTEF) VIAL IV SCH ×3 (06:23→22:53)
[2016-12-01] MEDS ORDERED: PROMETHAZINE INJ 25 MG/ML (PHENERGAN) AMP ONE (06:27)
[2016-12-01] MEDS: PROMETHAZINE INJ 25 MG/ML (PHENERGAN) AMP IVP PRN ×2 (06:42→12:13)
[2016-12-01 06:55] LABS: INR 1.7 (0.8-1.4); PROTHROMBIN TIME PATIENT 20.2 SEC (12.2-14.7)
[2016-12-01 07:50] LABS: BASOPHILS % (AUTO) 0 % (0-10); EOSINOPHILS % (AUTO) 0 % (0-10); LYMPHOCYTES # (AUTO) 0.7 X 10^3 (1.0-4.0); LYMPHOCYTES % (AUTO) 4 % (12-44); MEAN CORPUSCULAR HEMOGLOBIN 30 PG (25-34); MEAN CORPUSCULAR HGB CONC 33 G/DL (32-36); MEAN CORPUSCULAR VOLUME 93 FL (80-99); MONOCYTES # (AUTO) 0.7 X 10^3 (0.0-1.0); MONOCYTES % (AUTO) 4 % (0-12); NEUTROPHILS % (AUTO) 91 % (42-75); PLATELET COUNT 43 10^3/uL (130-400); RED CELL DISTRIBUTION WIDTH 16.6 % (10.0-14.5); WHITE BLOOD COUNT 15.3 10^3/uL (4.3-11.0)
[2016-12-01] MEDS: PHENYLEPHRINE IV SCH ×2 (08:10→16:57)
[2016-12-01] MEDS: D5W IV SCH ×2 (08:10→16:57)
[2016-12-01 08:27] LABS: ANISOCYTOSIS SLIGHT; LYMPHOCYTES % (MANUAL) 1 %; NEUTROPHILS % (MANUAL) 97 %; POIKILOCYTOSIS SLIGHT; POLYCHROMASIA SLIGHT
--- NOTE | 2016-12-01 08:37 | Diagnostic Imaging Report ---
INDICATION: Pneumonia. Frontal chest obtained at 4:25 a.m. and compared to 11/30/16 FINDINGS: ET tube and NG tube are unchanged. Right IJ central catheter is unchanged. Extensive right basilar infiltrate and right pleural fluid are stable. There appears to be worsening infiltrate in the left midlung compared to the prior study. IMPRESSION: Worsening infiltrate left midlung compared to prior study. Unchanged right basilar infiltrate and right pleural fluid. Cardiomegaly. Life-support lines are stable. Dictated by: Dictated on workstation # [id number]
[2016-12-01] MEDS: CHLORHEXIDINE 0.12% SOLN 15 ML (PERIDEX) UDC PO SCH ×2 (09:20→21:06)
[2016-12-01] MEDS: NS IV 500 ML 500 ML IV SCH ×2 (09:20→15:12)
[2016-12-01] MEDS: PANTOPRAZOLE INJECTION 200 MG in NS (IVPB) 50 ML IV SCH (09:21)
[2016-12-01] MEDS: PROPOFOL DRIP (ICU) 100 ML IV SCH ×2 (09:55→20:01)
--- NOTE | 2016-12-01 12:00 | Progress Note-Hospitalist ---
Progress Note HPI/CC on Admission Mr. nichole is a 66-year-old white male with known right sided squamous cell carcinoma of the lung stage IIIa received chemotherapy and radiation therapy. Apparently his last dose of chemotherapy was in September and treatment had been complicated by radiation pneumonitis for which she had been on prednisone and continuing a taper. He is feeling well up until Tuesday when he started having chills and nonproductive cough with headache. The symptoms got progressively worse as did shortness of breath. He has an O2 sat monitor at home and apparently was in the 70s despite oxygen feeling quite short of breath the day of his admission prompting an ER visit. There he was started on O2 via Vapotherm high-dose but then required BiPAP for respiratory distress. Upon my arrival he had the BiPAP mask on looking comfortable without tachypnea maintaining saturations 95-98 percent on high flow oxygen. He's had a scant amount of hemoptysis for the past several days denying any other color. Next inspection at bedside revealed dark red or rust-colored scant sputum. No one else is been sick that he is aware of in regards to exposure history and he has had no recent travel history. He has no known tick exposure this season. 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 Hammond has primed the pt's family on pt's prognosis. Family does not want prognosis discussed in front of pt Dr. Hammond increased fluids Patient Interview: Physical exam stable and very critically ill SBP 70, gravely ill RRR tachy 100 Diminished BS Assessment: VDRF Lung cancer ARF Multi-system organ failure Plan: Palliative care consult Monitor pt closely Very poor prognosis Scribed by Adri Quintanilla under the direct supervision of Dr. Tyson. MARINA TYSON DO Dec 01, 2016 12:00
--- NOTE | 2016-12-01 15:51 | Progress Note-Standard ---
Standard Progress Note Progress Notes/Assess & Plan Date Seen by Provider: Dec 01, 2016 Time Seen by Provider: 15:52 Progress/Assessment & Plan 66-year-old male who underwent neoadjuvant chemotherapy followed by a right lower lobectomy for non-small cell lung cancer and found to have subcarinal lymph node positive. He completed adjuvant radiation therapy along with low- dose chemotherapy using carboplatinum and paclitaxel regimen and completed all treatment by early October 2016. He was diagnosed with the radiation pneumonitis by late October 2016and started on prednisone 40 mg daily 2 weeks and 30 mg daily 2 weeks and was starting to feel better. Patient brought to the emergency room last Tuesday with increasing shortness of breath and found to have extensive left lung infiltrates which is new. Currently on Zosyn and vancomycin along with Diflucan. The left lung infiltrates is new since October 2016 and is due to infectious etiology until proven otherwise. These infiltrates are outside the radiation field and is most likely not due to radiation pneumonitis. Patient is on ventilator and currently using 80 percent FiO2. Platelet count decreasing most likely due to Lovenox and or antibiotics. Agree with stopping Lovenox. All cultures negative so far. Monitor blood counts serially. Blood tinged NG tube secretions. Monitor closely. His family is aware of the poor prognosis but wanted to continue the treatments for now. I will follow the patient with you. CLOTILDE VILLAGRAN Dec 01, 2016 15:51
[2016-12-01] MEDS: FLUCONAZOLE 100 MG/50 ML 50 ML IV SCH (16:21)
[2016-12-01] MEDS: LORazepam INJ 2 MG/ML (ATIVAN) VIAL IVP PRN (18:27)
[2016-12-01 19:01] LABS: MEAN PLATELET VOLUME 11.9 FL (7.4-10.4); RED BLOOD COUNT 2.94 10^6/uL (4.35-5.85); RED CELL DISTRIBUTION WIDTH 16.6 % (10.0-14.5); WHITE BLOOD COUNT 22.9 10^3/uL (4.3-11.0)
[2016-12-01] MEDS: AMITRIPTYLINE 10 MG (ELAVIL) TAB PO SCH (21:00)
[2016-12-02] VITALS (10 sets, daily range): BP systolic 93–129; BP diastolic 48–79
[2016-12-02] MEDS: LACTATED RINGERS 1,000 ML IV SCH (01:15)
[2016-12-02] MEDS: D5W IV SCH (01:18)
[2016-12-02] MEDS: PHENYLEPHRINE IV SCH (01:18)
[2016-12-02] MEDS: LORazepam INJ 2 MG/ML (ATIVAN) VIAL IVP PRN (01:35)
[2016-12-02] MEDS: RT-ALBUTEROL/IPRATROPIUM 3 ML (DUONEB) VIAL INH SCH (02:23)
[2016-12-02] MEDS: PIPERACILLIN/TAZOBACTAM 4.5 GM/NS 100 ML IVPB IV SCH ×2 (03:05)
[2016-12-02] MEDS: inSUlin (REGULAR) HUMAN 1 UNIT/0.01 ML (CHARGE PER UNIT) SC SCH ×2 (04:00)
[2016-12-02 04:36] LABS: BASOPHILS # (AUTO) 0.1 10^3/uL (0.0-0.1); BASOPHILS % (AUTO) 0 % (0-10); EOSINOPHILS % (AUTO) 0 % (0-10); LYMPHOCYTES # (AUTO) 1.1 X 10^3 (1.0-4.0); LYMPHOCYTES % (AUTO) 5 % (12-44); MEAN CORPUSCULAR HEMOGLOBIN 30 PG (25-34); MEAN CORPUSCULAR HGB CONC 33 G/DL (32-36); MEAN CORPUSCULAR VOLUME 93 FL (80-99); MEAN PLATELET VOLUME 12.4 FL (7.4-10.4); MONOCYTES % (AUTO) 5 % (0-12); NEUTROPHILS % (AUTO) 89 % (42-75); PLATELET COUNT 48 10^3/uL (130-400); RED BLOOD COUNT 2.87 10^6/uL (4.35-5.85); RED CELL DISTRIBUTION WIDTH 16.8 % (10.0-14.5); WHITE BLOOD COUNT 20.2 10^3/uL (4.3-11.0)
[2016-12-02 04:37] LABS: ABG BASE EXCESS -7.3 MMOL/L (-2.5-2.5); ABG HCO3 18 MMOL/L (23-27); ABG OXYGEN SATURATION 95 % (94-100); ABG PCO2 38 MMHG (35-45); ABG PO2 85 MMHG (79-93); ABG TCO2 19.3 MMOL/L (21.0-31.0)
[2016-12-02 04:40] LABS: ABG PH 7.29 (7.37-7.43); ALLENS TEST ART LINE; PATIENT TEMP 97.7
[2016-12-02 05:17] LABS: CALCIUM 7.5 MG/DL (8.5-10.1); CREATININE SERUM 3.84 MG/DL (0.60-1.30); PHOSPHORUS 6.6 MG/DL (2.3-4.7)
[2016-12-02] MEDS: PANTOPRAZOLE INJECTION 200 MG in NS (IVPB) 50 ML IV SCH (05:45)
--- NOTE | 2016-12-02 05:46 | Pulmonary Progress Note ---
Subjective Time Seen by Provider: 05:45 Subjective/Events-last exam Pt continues to decline with worsening respiratory failure and renal failure. Exam Exam Vital Signs Date Time Temp Pulse Resp B/P (MAP) Pulse Ox O2 Delivery O2 Flow Rate FiO2 12/02/16 04:00 125 26 93 100 12/02/16 04:00 126 24 129/77 92 Mechanical Ventilator 100.00 117/73 12/02/16 03:00 128 25 111/77 95 Mechanical Ventilator 100.00 110/59 12/02/16 02:23 120 27 90 100 12/02/16 02:00 122 22 114/78 89 Mechanical Ventilator 100.00 93/48 12/02/16 01:00 120 26 124/79 93 Mechanical Ventilator 100.00 113/58 12/02/16 01:00 120 12/02/16 00:00 97.7 120 26 110/65 92 Mechanical Ventilator 100.00 98/62 12/02/16 00:00 Mechanical Ventilator 100.00 12/01/16 23:00 128 23 114/68 87 Mechanical Ventilator 100.00 86/43 12/01/16 22:08 118 26 91 100 12/01/16 22:00 123 33 120/73 91 Mechanical Ventilator 100.00 132/65 12/01/16 21:00 118 18 137/82 92 Mechanical Ventilator 100.00 98/45 12/01/16 20:01 125 29 133/69 94 Mechanical Ventilator 100.00 12/01/16 20:00 99.0 125 29 104/66 94 Mechanical Ventilator 100.00 152/66 12/01/16 20:00 Mechanical Ventilator 100.00 12/01/16 19:00 112 22 135/88 92 123/64 12/01/16 19:00 112 12/01/16 18:56 112 23 93 100 12/01/16 18:26 96.4 120 138/76 12/01/16 18:15 Mechanical Ventilator 100.00 12/01/16 18:00 113 26 143/97 88 Mechanical Ventilator 90.00 124/73 12/01/16 17:00 115 34 140/88 89 Mechanical Ventilator 90.00 124/73 12/01/16 16:26 97.7 12/01/16 16:00 Mechanical Ventilator 80.00 12/01/16 16:00 116 25 145/91 91 Mechanical Ventilator 90.00 131/76 12/01/16 15:53 99 24 91 80 12/01/16 15:20 97.4 112 119/70 12/01/16 15:06 113 105/67 12/01/16 15:06 97.2 12/01/16 15:00 111 26 105/67 89 Mechanical Ventilator 90.00 98/49 12/01/16 14:00 111 21 125/77 94 Mechanical Ventilator 90.00 130/63 12/01/16 13:51 117 22 90 80 12/01/16 13:00 110 23 98/63 94 Mechanical Ventilator 90.00 117/55 12/01/16 13:00 110 12/01/16 12:22 97.8 12/01/16 12:16 103 30 97 80 12/01/16 12:00 Mechanical Ventilator 80.00 12/01/16 12:00 113 13 131/87 96 Mechanical Ventilator 90.00 128/77 12/01/16 11:00 124 23 109/64 95 Mechanical Ventilator 90.00 123/73 12/01/16 10:09 110 23 98 80 12/01/16 10:00 115 20 115/75 97 Mechanical Ventilator 90.00 99/50 12/01/16 09:55 112/68 12/01/16 09:00 115 21 104/68 94 Mechanical Ventilator 90.00 119/71 12/01/16 08:00 Mechanical Ventilator 80.00 12/01/16 08:00 96.9 Mechanical Ventilator 80.00 12/01/16 07:56 110 20 95 80 12/01/16 07:00 113 12/01/16 07:00 113 27 95/74 94 Mechanical Ventilator 90.00 94/57 12/01/16 06:14 123 29 93 80 12/01/16 06:00 124 19 78/64 89 Mechanical Ventilator 90.00 79/38 General Appearance: Moderate Distress, Obese HEENT: PERRL/EOMI Neck: Supple Respiratory: Other (on bi-pap) Cardiovascular: Regular Rate, Rhythm, Bradycardia Capillary Refill: Less Than 3 Seconds Gastrointestinal: normal bowel sounds, non tender, soft, no organomegaly, no pulsatile mass Extremity: Non Tender, No Calf Tenderness, No Pedal Edema Neurologic/Psychiatric: Alert, Oriented x3 Skin: Normal Color, Warm/Dry Lymphatic: No Adenopathy Results Lab Laboratory Tests 12/01/16 04:10 12/01/16 06:30 8/30/17 18:58 12/02/16 04:15 Assessment/Plan Assessment/Plan Pneumonia -- doubt PCP -zosyn, vanco, diflucan, -Bactrim -repeat [place] cultures pending -IVF Acute respiratory failure-- -BiPAP PRN -Solumedrol 40mg IV Q6 -- changed to SoluCortef secondary to Hypotension Acute upper GIB --Repeat labs -Protonix gtt -Monitor H&H Thrombocytopenia -check HIT abx and PT, PTT, INR -Repeat labs -transfuse 2 6pk platelets if repeat labs are the same. 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 Cr is now up to 3.84 patient continues to decline despite our best medical efforts. I discussed this with family and they state he has been very uncomfortable with WOB and at time agitation. After discussion with family they agree it is time to make patient comfort care only. They are calling in family members and once they are ready we are going to withdrawal supportive care including ventilator. Family is aware that making patient comfort care only he will most likely today. They still agree with comfort care only. When family is ready will proceed with comfort care only. 233 Clinical Quality Measures DVT/VTE Risk/Contraindication: Risk Factor Score Per Nursin RFS Level Per Nursing on Admit: 2=Moderate BRITTANY LANIER DO Dec 02, 2016 05:46
[2016-12-02] MEDS ORDERED: morphine INJ 4 MG/ML 1 ML (VIAL/SYRINGE) ONE (05:57)
[2016-12-02] MEDS: fentaNYL INJECTION 100 MCG/2 ML AMP IV PRN (05:59)
[2016-12-02] MEDS: POTASSIUM CL 10MEQ/50ML IVPB 50 ML IV SCH (06:00)
[2016-12-02] MEDS: KCL 20 MEQ TAB (K-DUR) PO SCH (06:00)
[2016-12-02] MEDS: MAGNESIUM 1 GM/100 ML IVPB 100 ML IV SCH (06:00)
[2016-12-02] MEDS: morphine INJ 4 MG/ML 1 ML (VIAL/SYRINGE) IVP PRN ×2 (06:07→07:49)
[2016-12-02] MEDS ORDERED: LORazepam INJ 2 MG/ML (ATIVAN) VIAL IVP PRN (06:15)
[2016-12-02] MEDS: HYDROCORTISONE 100 MG/2 ML (Solu-CORTEF) VIAL IV SCH (06:42)
[2016-12-02] MEDS: PROPOFOL DRIP (ICU) 100 ML IV SCH (06:43)
[2016-12-02] MEDS: CATHETER FLUSH 10 ML SYR IV SCH (06:46)
--- NOTE | 2016-12-02 09:13 | Diagnostic Imaging Report ---
Clinical indication: Patient with pneumonia. Exam: Portable chest x-ray semiupright view. Comparison: Portable chest x-ray semiupright view dated 12/01/2016. Findings: There is slight improved aeration of both lungs with continued large amounts of right midlung field right lung base consolidation. There is also continued airspace groundglass opacification and consolidation throughout the left lung. Cardiomegaly is seen and partially obscured. Pulmonary vasculature is obscured. Right pleural effusion is suspected. There is no left pleural effusion. There is no pneumothorax. Again seen right IJ central line with tip in the superior vena cava. ET tube seen with tip roughly 2.5 cm from the expected region of the giovanna. Nasogastric tube/orogastric tube is partially visualized but its distal portion appears to be in the distal esophagus and should be advanced. IMPRESSION: 1: Slight improved aeration of both lungs with continued bilateral lung infiltrates. 2: Suspected pleural effusion. 3: Cardiomegaly. 4: Concern for orogastric/nasogastric tube with its tip in the distal esophageal region. This tube should be advanced at least another 20 cm. Dictated by: Dictated on workstation # [id number]
--- NOTE | 2016-12-02 10:44 | Discharge Summary-Hospitalist ---
Diagnosis/Chief Complaint Date of Admission Nov 26, 2016 at 11:00 Date of Discharge Dec 02, 2016 at 09:55 Admission Diagnosis 1. Probable left lower lobe pneumonia with secondary respiratory failure continue broad-spectrum antibiotic coverage anti-inflammatory and bronchodilator therapy with BiPAP as needed. 2. Stage IIIa squamous cell carcinoma the right lung status post right lower lobectomy via VAT with subsequent radiation and chemotherapy. 3. Radiation pneumonitis 4. Sepsis most likely not severe. The patient systolic pressures have been somewhat low but there is no evidence for end organ damage. In review of previous medical records he usually runs around 110 systolic range we'll repeat a CMP and as long as renal function remains stable we will continue IV fluids and hold vasopressor therapy. If there is evidence for any decline we'll start Levophed. 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 Hammond has primed the pt's family on pt's prognosis. Family does not want prognosis discussed in front of pt Dr. Hammond increased fluids Patient Interview: Physical exam stable and very critically ill SBP 70, gravely ill RRR tachy 100 Diminished BS Assessment: VDRF Lung cancer ARF Multi-system organ failure Plan: Palliative care consult Monitor pt closely Very poor prognosis Scribed by Adri Quintanilla under the direct supervision of Dr. Alaniz. Discharge Summary Discharge Physical Examination Allergies: Coded Allergies: No Known Drug Allergies (Unverified , 01/29/16) Vitals & I&Os Vital Signs Date Time Temp Pulse Resp B/P (MAP) Pulse Ox O2 Delivery O2 Flow Rate FiO2 12/02/16 08:00 Mechanical Ventilator 100.00 12/02/16 06:43 115 17 95/64 94 12/02/16 06:24 100 12/02/16 04:00 97.7 Hospital Course Hospital course: patient was admitted to the hospital for AECOPD and pneumonia. Due to lung cancer lobectomy hx his respiratory status was compromised and he required intubation. Multiple meds were initiated along with pressor therapy and IVF. Poor prognosis remained. He was extubated and less than 30 minutes after withdrawal of support occurred. Labs (last 24 hrs) Laboratory Tests 12/01/16 18:58: White Blood Count 22.9H, Red Blood Count 2.94L, Hemoglobin 8.9L, Hematocrit 27L , Mean Corpuscular Volume 92, Mean Corpuscular Hemoglobin 30, Mean Corpuscular Hemoglobin Concent 33, Red Cell Distribution Width 16.6H, Platelet Count 66L, Mean Platelet Volume 11.9H 12/02/16 00:09: Glucometer 110 12/02/16 04:13: Glucometer 115H 12/02/16 04:15: White Blood Count 20.2H, Red Blood Count 2.87L, Hemoglobin 8.7L, Hematocrit 27L , Mean Corpuscular Volume 93, Mean Corpuscular Hemoglobin 30, Mean Corpuscular Hemoglobin Concent 33, Red Cell Distribution Width 16.8H, Platelet Count 48L, Mean Platelet Volume 12.4H, Neutrophils (%) (Auto) 89H, Lymphocytes (%) (Auto) 5L, Monocytes (%) (Auto) 5, Eosinophils (%) (Auto) 0, Basophils (%) (Auto) 0, Neutrophils # (Auto) 18.0H, Lymphocytes # (Auto) 1.1, Monocytes # (Auto) 1.0, Eosinophils # (Auto) 0.0, Basophils # (Auto) 0.1, Blood Gas Puncture Site L RAD , Blood Gas Patient Temperature 97.7, Arterial Blood pH 7.29*L, Arterial Blood Partial Pressure CO2 38, Arterial Blood Partial Pressure O2 85, Arterial Blood HCO3 18L, Arterial Blood Total CO2 19.3L, Arterial Blood Oxygen Saturation 95, Arterial Blood Base Excess -7.3L, Guido Test ART LINE, Blood Gas Ventilator Setting YES, Blood Gas Inspired Oxygen 100% FIO2, Sodium Level 134L, Potassium Level 5.0, Chloride Level 101, Carbon Dioxide Level 16L, Anion Gap 17H, Blood Urea Nitrogen 81H, Creatinine 3.84#H, Estimat Glomerular Filtration Rate 16, BUN /Creatinine Ratio 21, Glucose Level 112H, Calcium Level 7.5L, Phosphorus Level 6.6H, Magnesium Level 2.0 Microbiology 11/30/16 Blood Culture - Preliminary, Resulted No growth 11/28/16 Gram Stain - Final, Resulted 11/28/16 Sputum Culture - Preliminary, Resulted No growth 11/30/16 Urine Culture - Final, Complete NO GROWTH Pending Labs Discharge Home Medications: Active Scripts Active Reported Xyzal (Levocetirizine Dihydrochloride) 5 Mg Tablet 5 Mg PO HS Prednisone 20 Mg Tab 25 Mg PO DAILY TAKES 1 & 1/4 (20MG) TABLET Hydrocodon-Acetaminophn 10-325 (Hydrocodone/Acetaminophen) 1 Each Tablet 2 Tab PO 2000 Omeprazole 40 Mg Capsule.dr 40 Mg PO DAILY PRN Sertraline HCl 100 Mg Tablet 100 Mg PO DAILY Amitriptyline HCl 10 Mg Tablet 40 Mg PO HS TAKES 4 (10MG) TABLETS Benicar (Olmesartan Medoxomil) 20 Mg Tablet 20 Mg PO HS Aspirin 81 Mg Tab.chew 81 Mg PO DAILY Ambien (Zolpidem Tartrate) 10 Mg Tablet 10 Mg PO HS Zyrtec (Cetirizine HCl) 10 Mg Tablet 10 Mg PO DAILY Multivitamins (Multivitamin) 1 Each Tablet 1 Tab PO DAILY Diclofenac Sodium ER (Diclofenac Sod) 100 Mg Tab 100 Mg PO BID Crestor (Rosuvastatin Calcium) 20 Mg Tablet 20 Mg PO HS Lovaza ([place]-3 Acid Ethyl Esters) 1 Gm Capsule 2 Gm PO HS TAKES 2 (1 GM) CAPSULES Instructions to patient/family Please see electonic discharge instructions given to patient. Clinical Quality Measures DVT/VTE Risk/Contraindication: Risk Factor Score Per Nursin RFS Level Per Nursing on Admit: 2=Moderate MARINA ALANIZ DO Dec 02, 2016 10:44
== END 2016-12-02 09:55 | disposition expired | DRG 871 ==
LOC: EDUNIT# 09:13 → ER 09:15 → ICU 11:00
PROVIDERS: ADMIT Internal Medicine; ATTEND Internal Medicine
PROC: 5A1945Z Respiratory Ventilation, 24-96 Consecutive Hours (ICD-10-PCS; principal; 2016-11-29)
DX: A41.9 Sepsis, unspecified organism (principal); R65.20 Severe sepsis without septic shock; J18.9 Pneumonia, unspecified organism; J70.0 Acute pulmonary manifestations due to radiation; J96.00 Acute respiratory failure, unspecified whether with hypoxia or hypercapnia; K92.2 Gastrointestinal hemorrhage, unspecified; N17.9 Acute kidney failure, unspecified; Z66 Do not resuscitate; Z51.5 Encounter for palliative care; J44.1 Chronic obstructive pulmonary disease with (acute) exacerbation; D69.6 Thrombocytopenia, unspecified; I95.9 Hypotension, unspecified; I10 Essential (primary) hypertension; K21.9 Gastro-esophageal reflux disease without esophagitis; I87.2 Venous insufficiency (chronic) (peripheral); F32.9 Major depressive disorder, single episode, unspecified; E66.9 Obesity, unspecified; Z68.35 Body mass index [BMI] 35.0-35.9, adult; Z87.891 Personal history of nicotine dependence; Y63.3 Inadvertent exposure of patient to radiation during medical care; Z85.118 Personal history of other malignant neoplasm of bronchus and lung
CPT/HCPCS: 36415; 71010; 71260; 80048; 80053; 80202; 81000; 82570; 82805; 82962; 83605; 83735; 83880; 84100; 84300; 84540; 85007; 85025; 85027; 85384; 85610; 85730; 86022; 86850; 86900; 86901; 86920; 87040; 87070; 87088; 87205; 87449; 93306; 93970; 94002; 94003; 94640; 94660; 94799; 96365; 96375